=== PATIENT | male | born 1950 | race Caucasian/White ===

== ENCOUNTER 2017-03-26 14:36 | Inpatient (IN) | payer OTHER, MEDICAID ==
[~2017-03-26] VITALS: Ht 177.8 cm; Wt 85.7 kg
--- NOTE | 2017-03-26 14:52 | NUR ---
PATIENT WHEELCHAIR ASSISTED TO -A
--- NOTE | 2017-03-26 15:00 | NUR ---
66 YO MALE BIB EMS FROM HOME FOR FLU LIKE SYMPTOMS, HX OF ALZHEMIERS; PT VERBAL BUT DOES NOT ANSWER QUESTIONS APPRIOPRIATELY. PT DENIES ANY PAIN. PT IS AWAKE AND ALERT. RR ARE EVEN AND UNLABORED. SKIN IS WARM, PINK, AND DRY. NAD. VSS. ER MD AWARE OF PT STATUS. VSS. WILL CONTINUE TO MONITOR. AWAITING ER MD CONROY. Addendum: 03/26/17 at 1702 by [employer] Amendment undone in EDM - 03/26/17 at 1815 by [email or web address] BOTH FOOT REDNESS.
[2017-03-26 15:07] VITALS: BP 136/89
--- NOTE | 2017-03-26 17:02 | NUR ---
BLL SLIGHTLY SWELLING & REDNESS.
--- NOTE | 2017-03-26 17:18 | NUR ---
Patient being evaluated by DR WHITTAKER at bedside.
--- NOTE | 2017-03-26 17:35 | NUR ---
STRAIT CATH ,URINE 170 CC.SENT SPECIMEN TO LAB.
--- NOTE | 2017-03-26 17:58 | NUR ---
PATIENT UNABLE TO TOLERATE CT HEAD WON'T LIE STILL BROUGHT BACK TO ER VIA WHEELCHAIR.
[2017-03-26 18:19] LABS: APPEARANCE,URINE CLEAR (CLEAR); BILIRUBIN,URINE 1+ (NEGATIVE); BLOOD, URINE NEGATIVE (NEGATIVE); COLOR,URINE YELLOW (YELLOW); LEUKOCYTE ESTERASE ,URINE NEGATIVE (NEGATIVE); NITRITE, URINE NEGATIVE (NEGATIVE); UGLUCOSE NEGATIVE (NEGATIVE)
[2017-03-26 18:40] LABS: RBC,URINE NONE SEEN /HPF (0-5); WBC,URINE 0-5 (RARE) /HPF (0-5)
[2017-03-26] MEDS ORDERED: LORazepam 2 MG/ML VIAL IVP ONE ×2 (18:50→19:15)
[2017-03-26 19:05] LABS: BASOPHILS # (AUTO) 0.1 K/uL (0.00-0.22); BASOPHILS % (AUTO) 1.4 % (0.0-2.0); EOSINOPHILS # (AUTO) 0.1 K/uL (0-0.4); EOSINOPHILS % (AUTO) 3.3 % (0.0-4.0); HEMATOCRIT 39.4 % (36-52); HEMOGLOBIN 13.1 g/dL (12.0-18.0); LYMPHOCYTES # (AUTO) 0.9 K/uL (2.0-11.5); LYMPHOCYTES % (AUTO) 20.6 % (20.5-51.1); MEAN CORPUSCULAR HEMOGLOBIN 29 pg (27-31); MEAN CORPUSCULAR HGB CONC 33 g/dL (33-37); MEAN CORPUSCULAR VOLUME 86 fL (80-94); MONOCYTES # (AUTO) 0.6 K/uL (0.8-1.0); MONOCYTES % (AUTO) 12.8 % (1.7-9.3); NEUTROPHILS # (AUTO) 2.7 K/uL (1.8-7.7); NEUTROPHILS % (AUTO) 61.9 % (42.2-75.2); PLATELET COUNT (AUTO) 338 K/uL (140-450); RED BLOOD CELL COUNT(AUTO) 4.59 MIL/uL (4.20-6.10); RED CELL DISTRIBUTION WIDTH 12.9 % (11.6-13.7); WHITE BLOOD COUNT (AUTO) 4.4 K/uL (4.8-10.8)
[2017-03-26 19:14] LABS: ANION GAP 12.9 (8-16); CARBON DIOXIDE 26.4 mmol/L (21-32); CREATININE 1.1 mg/dL (0.7-1.3); POTASSIUM 3.3 mmol/L (3.5-5.1)
[2017-03-26 19:20] LABS: ALBUMIN 3.5 g/dL (3.4-5.0); TOTAL BILIRUBIN 0.5 mg/dL (0.0-1.0)
[2017-03-26] MEDS ORDERED: LORazepam 2 MG/ML VIAL IVP PRN ×2 (19:20→21:00)
[2017-03-26] MEDS ORDERED: ONDANSETRON 4 MG/2 ML VIAL IVP PRN (19:20)
[2017-03-26] MEDS ORDERED: HYDROcodone/APAP 5/325 MG 1 TAB TAB PO PRN (19:20)
--- NOTE | 2017-03-26 19:37 | NUR ---
Pt report given to DAVID RILEY. Transfer of care at this time.
[2017-03-26 20:00] VITALS: BP 159/75
--- NOTE | 2017-03-26 20:00 | NUR ---
RECEIVED FROM ER PER LASHONDA AWAKE AND WITH HX. DEMENTIA/ALZHEIMERS DSE.. COMBATIVE AND STRIKES OUT TO PERSONNEL TRYING TO HOLD INTO HIM SO HE WON'T FALL. WALKING AROUND THE HALLWAY. SECURITY CALLED TO HELP .PT. GAITS WEAK RT OLD AGE AND EDEMA TO LEGS BILATERAL NOTED. RASHES TO MULTIPLE PARTS OF THE BODY. DRY SCABS TO LOWER EXTREMITIES. IVF SITE TO RAC#20 . PT. REFUSING TO TALK AT T HIS TIME. ENCOURAGED TO GO BACK IN BED. REFUSING TO GO BACK IN BED AND REFUSING TO SIT IN CHAIR OR GOO BACK IN BED. CNAS , SECURITY AND NURSES JUST WATCHING OVER HIM .CHARGE NURSE CALLED ATTENDING MD FOR MEDICATION TO CALM PT.
--- NOTE | 2017-03-26 20:15 | NUR ---
Patient will be admitted to care of DR. MONTGOMERY . Admited to [facility] 110B. Will go to [id number]. Belongings list completed. Report to SANTY HERNANDEZ.
[2017-03-26] MEDS ORDERED: HALOPERIDOL IM 5 MG/ML VIAL IM PRN (21:00)
--- NOTE | 2017-03-26 22:08 | NUR ---
PT. MEDICATED WITH HALDOL 1 MG IM ORDERED BY ATTENDING MD . PT. AT THIS TIME SITTING DOWN AT THE EDGE OF BED. ADHESIVE SPRAYER ON STANDBY WATCH. NEEDS WILL BE ANTICIPATED AND WILL BE MET. DX. OF FAILURE TO THRIVE AND CHANGE OF LOC.
[2017-03-27 00:29] VITALS: BP 110/50
--- NOTE | 2017-03-27 00:31 | NUR ---
SLEEPING AT THIS TIME. 02 SAT ROOM AIR AT 100 %. BP WITH IN NORMAL LIMITS. BED ALARM ON. WILL BE FREQUENTLY MONITORED.
[2017-03-27 03:50] VITALS: BP 111/51
--- NOTE | 2017-03-27 03:52 | NUR ---
PT. SLEEPING WELL. WAKES UP WHEN TOUCHED. NONE VERBAL STILL. REFUSES TO BE TOUCHED. LAB. TECH IN FOR BLOOD SPECIMEN BUT PT. PUSHES HER AWAY WITH HIS HAND. PER LAB. TECH SHE WILL COME BACK LATER.
--- NOTE | 2017-03-27 06:20 | NUR ---
PT. WILL BE WHEELED OUT TO CT FOR CT HEAD ORDERED YESTERDAY BY . PT. ACCOMPANIED BY JOSÉ MIGUEL ROD TO HELP ZULLY / FOOD SERVICE SPECIALIST R/T PT. HAS HX. OF BEING COMBATIVE. PT. STILL SLEEPY BUT WAKES UP WHEN TOUCHED.
--- NOTE | 2017-03-27 06:39 | NUR ---
PT. WILL BE SENT BACK WITHOUT GOING THROUGH THE TEST R/T PER TECH PT. IS STARTING TO BE COMBATIVE.
--- NOTE | 2017-03-27 07:15 | NUR ---
RECEIVED PATIENT REPORT AT BEDSIDE. PATIENT STANDING AT HIS DOORWAY. NO S/S OF DISTRESS NOTED. PATIENT ON ROOM AIR. PATIENT CALM AT THE MOMENT. PATIENT NODS WHEN ASKED BUT DOES NOT RESPOND VERBALLY AT THIS TIME. SCRATCHES AND DISCOLORATION NOTED TO THE BLE. PATIENT ASSISTED TO SIT IN THE CHAIR. WILL CONTINUE TO MONITOR
[2017-03-27 07:27] LABS: BASOPHILS # (AUTO) 0.1 K/uL (0.00-0.22); BASOPHILS % (AUTO) 3.8 % (0.0-2.0); EOSINOPHILS # (AUTO) 0.3 K/uL (0-0.4); EOSINOPHILS % (AUTO) 6.5 % (0.0-4.0); HEMATOCRIT 37.7 % (36-52); HEMOGLOBIN 12.9 g/dL (12.0-18.0); LYMPHOCYTES # (AUTO) 0.9 K/uL (2.0-11.5); LYMPHOCYTES % (AUTO) 23.8 % (20.5-51.1); MEAN CORPUSCULAR HEMOGLOBIN 30 pg (27-31); MEAN CORPUSCULAR HGB CONC 34 g/dL (33-37); MEAN CORPUSCULAR VOLUME 86 fL (80-94); MONOCYTES # (AUTO) 0.6 K/uL (0.8-1.0); MONOCYTES % (AUTO) 15.5 % (1.7-9.3); NEUTROPHILS % (AUTO) 50.4 % (42.2-75.2); PLATELET COUNT (AUTO) 291 K/uL (140-450); RED BLOOD CELL COUNT(AUTO) 4.37 MIL/uL (4.20-6.10); RED CELL DISTRIBUTION WIDTH 13.4 % (11.6-13.7); WHITE BLOOD COUNT (AUTO) 3.9 K/uL (4.8-10.8)
[2017-03-27 08:00] VITALS: BP 143/81
[2017-03-27 08:47] LABS: ANION GAP 13.5 (8-16); CARBON DIOXIDE 25.9 mmol/L (21-32); POTASSIUM 3.4 mmol/L (3.5-5.1)
[2017-03-27] MEDS: HALOPERIDOL IM 5 MG/ML VIAL IM PRN (09:19)
--- NOTE | 2017-03-27 09:45 | NUR ---
PATIENT BROUGHT BACK FROM CT. TEST WAS NOT COMPLETED. PATIENT WAS RESTLESS
[2017-03-27] MEDS: ENOXAPARIN 30 MG/0.3 ML SYR SUBQ SCH (10:19)
--- NOTE | 2017-03-27 11:48 | NUR ---
CM NOTE PROVIDED VERBAL REPORT TO GUERLINE JOSE FOR [facility] ([phone] [id number])
--- NOTE | 2017-03-27 13:54 | NUR ---
I Attempted to contact Patient's son Ramírez Henry at to discuss Patient's status and gather information about patient's care and services provided and needed. The phone number provided was incorrect and phone number is a non working number.
--- NOTE | 2017-03-27 13:59 | NUR ---
After attempting to contact Patient's son Ramírez Henry at several times and finding out that the phone number provided is a non working number I placed a call to Sienna Barrios I talk to a dispatcher to request for a family welfare check and to inform them that they need to contact [facility] and have an updated contact number on record. I provided telle unit number to contact Charge Nurse wicho Mckenna to provide current contact number for son Ramírez Henry. Sienna Barrios took information, stated that welfare check will be done with in an hour and ended the call.
[2017-03-27] MEDS ORDERED: MAG SULF 2000 MG/WATER PREMIX 50 ML IV SCH (14:00)
[2017-03-27] MEDS ORDERED: POTASSIUM CHLORIDE 10 MEQ TABER PO SCH (14:00)
--- NOTE | 2017-03-27 14:52 | NUR ---
PATIENT HAS BEEN SCREENED AND CATEGORIZED LOW NUTRITION RISK. PATIENT WILL BE SEEN WITHIN 7 DAYS OF ADMISSION. 04/01/[address]
[2017-03-27 17:30] VITALS: BP 163/75
--- NOTE | 2017-03-27 17:47 | NUR ---
NOTIFIED DR VICTOR ABOUT PATIENT'S ELEVATED BP. ORDERS RECEIVED
[2017-03-27] MEDS: LABETALOL 100 MG TAB PO SCH ×2 (18:00→18:28)
--- NOTE | 2017-03-27 19:26 | NUR ---
PATIENT REPORT GIVEN AT BEDSIDE. PATIENT ENDORSED IN STABLE CONDITION
--- NOTE | 2017-03-27 19:29 | NUR ---
RECEIVED FROM A M RN IN GOOD MOOD. PT. WLKING AROUND THE ROOM AND DISCONNECTED NEWLY INSERTED IV BY AM RN. PT. CONFUSED . REFUSED TO LISTEN TO SIT OR GO BACK IN BED. PREFERS WALKING AROUND AND NOT SIT. PT.M WILL BE MONITORED CLOSELY AND NEEDS WILL BE ANTICIPATED AND WILL BE MET. AFEBRILE. DX. HX. SEVERE DEMENTIA AND ALZHEIMER'S DSE.
[2017-03-27] MEDS: ZOLPIDEM 10 MG TAB PO PRN (20:48)
--- NOTE | 2017-03-27 22:17 | NUR ---
PT. SLEEPING AT THIS TIME. WITH NEW ORDERS FOR SLEEPING PILL. MEDICATED ORDERED. NEW IVF LINE INSERTED TO LEFT HAND #22. MAGNESIUM IVP AT 25 ML/H CONTINUED ORDERED. MONITORED CLOSELY . PT. ATE A SANDWICH FOR SNACK AND 2 BOXES OF APPLE JUICE. NO RESTLESSNESS AT THIS TIME. NEEDS WILL BE ANTICIPATED AND WILL BE MET.
--- NOTE | 2017-03-28 | NUR ---
PT. WOKE UP AND PULLED OUT NEW IVF SITE AND AT THE SAME TIME STOOD UP AND URINATED ON THE FLOOR BESIDE HIS BED. WENT BACK TO BED AFTER. BED ALARM ON. PT. SLEEPING BACK.
--- NOTE | 2017-03-28 02:30 | NUR ---
PT. SLEEPING STILL. TURNS HIMSELF SIDE TO SIDE. KEPT WARM, CLEAN AND COMFORTABLE.
[2017-03-28 03:43] VITALS: BP 130/99
--- NOTE | 2017-03-28 04:57 | NUR ---
SLEEPING. NO RESTLESSNESS. BED ALARM ON. CLOSE MONITORING BY CNAS AND NURSES.
--- NOTE | 2017-03-28 06:25 | NUR ---
AWAKE AT THIS TIME. PROVIDED WITH SANDWICH. ATE IT ALL WITH APPLE JUICE. GOOD AFFECT.
--- NOTE | 2017-03-28 07:15 | NUR ---
ENDORSED TO THE NEXT RN FOR CONTINUITY OF CARE. PT. WENT BACK TO SLEEP AFTER EATING SNACK. NO RESTLESSNESS.
--- NOTE | 2017-03-28 07:15 | NUR ---
RECEIVED PATIENT REPORT AT BEDSIDE. PATIENT ASLEEP IN BED WITH NO ACUTE DISTRESS AT THIS TIME. SCRATCHES AND SWELLING TO BLE .NO IV LINE IN PLACE. BED LOWERED AND CALL LIGHT WITHIN REACH. WILL CONTINUE TO MONITOR.
[2017-03-28 08:00] VITALS: BP 146/62
[2017-03-28] MEDS: LABETALOL 100 MG TAB PO SCH ×2 (09:52→21:05)
[2017-03-28] MEDS: ENOXAPARIN 30 MG/0.3 ML SYR SUBQ SCH (09:53)
--- NOTE | 2017-03-28 10:26 | NUR ---
PATIENT AMBULATING AROUND THE UNIT WITH THE COMMERCIAL GREEN BUILDING DESIGNER. NO S/S OF DISTRESS NOTED.
--- NOTE | 2017-03-28 11:17 | NUR ---
Social Service Note: I called [place] [employer] and spoke with dispatcher Chiqui . Per Chiqui, an officer went to patient's home address (as listed on face sheet) [address] [place] [address] [address] [place] [address] and the officer requested person who opened the door to contact [facility]. She reported officer did not obtain the contact information of the person who opened the door.
--- NOTE | 2017-03-28 13:15 | NUR ---
PATIENT'S PRESENT IN THE ROOM. DR MONTGOMERY SPOKE WITH THE PATIENT'S AND INFORMED HER THAT PATIENT CAN BE DISCHARGED TO HOME IF PATIENT CAN NOT BE PLACED IN AN ALZHEIMER'S UNIT TODAY. PATIENT'S STATES THAT SHE WILL NOT BE TAKING THE PATIENT HOME AND INSISTED FOR THE PATIENT TO BE PLACED SOMEWHERE. HOME HEALTH AID TO SPEAK WITH THE PATIENT
--- NOTE | 2017-03-28 14:44 | NUR ---
P.T. NOTES P.T. EVAL DONE; NURSING TO AMBULATE PATIENT AD DARELL.
--- NOTE | 2017-03-28 16:00 | NUR ---
PATIENT'S , KAYLA BACON LEFT AND LEFT HER NUMBER [phone]
--- NOTE | 2017-03-28 17:29 | NUR ---
Social Service Note: I met with patient and patient's Kenia Dash at bedside. Patient non verbal during conversation. Per Kenia, she lives with patient and is no longer able to care for patient. She stated her physician told her that if she continues to take care of patient her health condition will decline. She demanded me to place patient in a senior living facility. I inquired if patient had [employer] insurance she stated he only has [employer] insurance. I explained to her the difference between skilled need snf placement and [facility] care snf placement. I informed that [employer] insurance covers for [facility] snf placement, not [employer]. Kenia became agitated and stated the [facility] or [facility] need to pay for patient's snf placement. She reported patient receives about $1,740 a month from Social Security and stated she uses that money to pay for their mobile home space. She told me that the mobile home is already paid, she only pays for mobile space. She reported she receives about $600 a month from Social Security for herself. She told me there is no one available to take care of patient nor anyone who can help patient pay for his placement. She demanded I call snfs and accused hospital staff of wanting her to be homeless. I explained to her that I was attempting to assist her with finding patient's snf/facility placement, however, it was important for her to understand that in order for patient to be placed at a snf as a [facility] patient, he needed to have [employer], otherwise, patient's Social Security income and/or any other family's members financial assistance needed to go towards his facility placement. She stated she is not going to take patient home upon discharge. During conversation, Kenia made inappropriate comments towards patient, patient's hospital gown went up when patient was attempting to get off bed and his private part was exposed. She told patient to cover himself because no one wanted to see that ugly thing and laughed at patient, she called patient krupa gayle. I called and made an APS report. APS report in patient's chart. Addendum: 03/28/17 at 1754 by Yoon Castillo SS I called and spoke with Process Assistant Mauricio #[id number] from [facility] Esdras Westbrook , APS report faxed to [facility] .
--- NOTE | 2017-03-28 19:20 | NUR ---
PATIENT REPORT GIVEN AT BEDSIDE. PATIENT ENDORSED IN STABLE CONDITION.
--- NOTE | 2017-03-28 19:21 | NUR ---
PATIENT REPORT RECEIVED AT BEDSIDE FROM MORNING NURSE. PATIENT IS SITTING IN CHAIR NEAR BED. NO SIGNS AND SYMPTOMS OF DISTRESS NOTED. FLACC 0. PATIENT IS APHASIC. NO IV SITE NOTED. SCABS/SCRATCHES NOTED ON BLE. PLAN OF CARE DISCUSSED WITH PATIENT. PATIENT COULD NOT COMPREHEND. SAFETY PRECAUTIONS IN PLACE. WILL CONTINUE TO MONITOR.
[2017-03-28 20:00] VITALS: BP 156/76
[2017-03-28] MEDS: ZOLPIDEM 10 MG TAB PO PRN (21:05)
--- NOTE | 2017-03-28 21:30 | NUR ---
MEDICATION EDUCATION GIVEN. MEDICATION GIVEN ORDERED. PATIENT TOLERATED WELL. ASSISTED PATIENT BACK TO BED. WILL CONTINUE TO MONITOR.
--- NOTE | 2017-03-29 | NUR ---
CHECKED ON PATIENT. PATIENT IS ASLEEP. NO SIGNS AND SYMPTOMS OF DISTRESS NOTED. BREATHING EVEN AND UNLABORED. WILL CONTINUE TO MONITOR.
[2017-03-29 04:00] VITALS: BP 149/70
--- NOTE | 2017-03-29 04:00 | NUR ---
CHECKED ON PATIENT. PATIENT IS ASLEEP. NO SIGNS AND SYMPTOMS OF DISTRESS NOTED. BREATHING EVEN AND UNLABORED. WILL CONTINUE TO MONITOR.
--- NOTE | 2017-03-29 07:15 | NUR ---
PATIENT REPORT GIVEN TO MORNING NURSE AT BEDSIDE. PATIENT IS IN STABLE CONDITION
[2017-03-29 08:00] VITALS: BP 162/88
[2017-03-29] MEDS: LABETALOL 100 MG TAB PO SCH ×2 (08:34→20:49)
[2017-03-29] MEDS: ENOXAPARIN 30 MG/0.3 ML SYR SUBQ SCH (08:35)
[2017-03-29 09:40] VITALS: BP 138/65
--- NOTE | 2017-03-29 09:40 | NUR ---
PATIENT AROUND AROUND HIS ROOM. BP RECHECKED 138 65. PATIENT CAN ABLE TO FOLLOW COMMAND. SAFETY MEASURES RENDERED TO PATIENT. WILL CONTINUE TO MONITOR.
--- NOTE | 2017-03-29 15:00 | NUR ---
SEEN PATIENT AMBULATING IN THE HALLWAY WITH DATABASE ARCHITECT. PATIENT ABLE TO COMMUNICATE BY NODDING HIS HEAD. ABLE TO FOLLOW COMMAND AND SAFETY MEASURES RENDERED. WILL CONTINUE TO MONITOR.
--- NOTE | 2017-03-29 15:45 | NUR ---
SEEN PATIENT SITTING IN THE SIDE OF THE BED. V/S TAKEN AND RECORDED. FALL PRECAUTION IMPLEMENTED. NO S/S OF DISTRESS.
--- NOTE | 2017-03-29 17:28 | NUR ---
SEEN PATIENT WALKING AROUND INSIDE HIS ROOM. FALL PRECAUTIONARY MEASURES IMPLEMENTED PER PROTOCOL.
--- NOTE | 2017-03-29 19:12 | NUR ---
PATIENT REPORT GIVEN AT BEDSIDE. PATIENT ENDORSED IN STABLE CONDITION.
--- NOTE | 2017-03-29 19:30 | NUR ---
RECEIVED REPORT FROM AM NURSE. PT RESTING IN BED, AWAKE, APHASIC AT THIS TIME, SMILES AND LAUGHS, ABLE TO FOLLOW SIMPLE COMMANDS. PT AMBULATORY. RESPIRATIONS EVEN AND UNLABORED. MULTIPLE DRY SCABS AND DISCOLORATIONS NOTED, INCLUDING BLE SCABS, REDNESS AND EDEMA. NO IV ACCESS. DISCUSSED AND REVIEWED PLAN OF CARE WITH PT, PT CONFUSED WITH HX ALZHEIMER'S, WILL CONTINUE WITH CONSTANT REINFORCEMENT. ALL NEEDS MET. BED ALARM AND SAFETY MEASURES ENSURED. CALL LIGHT WITHIN REACH.
[2017-03-29 20:00] VITALS: BP 160/78
--- NOTE | 2017-03-29 20:56 | NUR ---
PT SLEEPING COMFORTABLY, AROUSABLE TO TOUCH, ADMINISTERED DUE MED WITH EDUCATION, WILL CONTINUE WITH CONSTANT REINFORCEMENT, PT ABLE TO SWALLOW MEDICATIONS WELL. PT ABLE TO AMBULATE INDEPENDENTLY TO RESTROOM WITH STANDBY ASSIST. ALL NEEDS MET. BED ALARM AND SAFETY MEASURES ENSURED. CALL LIGHT WITHIN REACH.
--- NOTE | 2017-03-29 23:30 | NUR ---
PT SLEEPING COMFORTABLY, AROUSABLE TO TOUCH, PT HAS WET DIAPER, PT CLEANED, PT TOLERATED WELL. RESPIRATIONS EVEN AND UNLABORED. ALL NEEDS MET. SAFETY MEASURES ENSURED. CALL LIGHT WITHIN REACH.
[2017-03-30] VITALS: BP 155/75
--- NOTE | 2017-03-30 03:29 | NUR ---
PT SLEEPING COMFORTABLY, RESPIRATIONS EVEN AND UNLABORED. PT CLEAN AND DRY. ALL NEEDS MET. SAFETY MEASURES ENSURED. CALL LIGHT WITHIN REACH.
--- NOTE | 2017-03-30 07:15 | NUR ---
ENDORSED PLAN OF CARE TO AM NURSE. CONDITION STABLE.
--- NOTE | 2017-03-30 07:16 | NUR ---
RECEIVED REPORT FROM COMPLAINTS COORDINATOR NURSE MELODY AT BEDSIDE FOR CONTINUITY OF CARE. PT IS AWAKE BUT APHASIC. INTRODUCED SELF AND UPDATED BOARD. PT GOT UP OF BED AND TOOK GOWN OFF. ASSISTED PT TO PUT GOWN BACK ON AND BACK TO BED. NO IV ACCESS. SKIN IS WARM AND DRY. BLE SCABS AND SKIN DISCOLORATION NOTED. PT IS ON RA. O2 SAT 100%. NO SIGNS OF DISTRESS. BED IN LOW POSITION, WHEELS LOCKED, CALL LIGHT WITHIN REACH. YELLOW GOWN ON, ID BAND AND FALL RISK SIGN POSTED. WILL CONTINUE TO MONITOR.
[2017-03-30 08:00] VITALS: BP 150/78
[2017-03-30] MEDS: LABETALOL 100 MG TAB PO SCH ×2 (09:25→20:40)
[2017-03-30] MEDS: ENOXAPARIN 30 MG/0.3 ML SYR SUBQ SCH (09:31)
--- NOTE | 2017-03-30 09:33 | NUR ---
ADMINISTERED SCHEDULED MEDS. PT TOLERATED WELL. SITTING AT EDGE OF BED. PT IS CALM. NO SIGNS OF DISTRESS. WILL CONTINUE TO MONITOR.
--- NOTE | 2017-03-30 10:45 | NUR ---
PT WAS FOUND WANDERING OUT OF ROOM. ARTERIAL EMBALMER ASSISTED PT BACK TO ROOM. ASSISTED BACK TO BED. PT IS WATCHING TV NOW, QUIET, NO SIGNS OF DISTRESS. WILL CONTINUE CLOSE MONITORING.
--- NOTE | 2017-03-30 13:42 | NUR ---
CM NOTE INITIAL REVIEW FAXED TO [facility] / FAX# [phone], ATTN: CHRISTIANO #[phone]
[2017-03-30 16:00] VITALS: BP 167/79
--- NOTE | 2017-03-30 16:00 | NUR ---
PT GOT UP AND OUT OF BED AND WAS FOUND WANDERING OUT OF ROOM. ASSISTED PT TO GO BACK TO ROOM. SITTING IN CHAIR FOLDING [place]KINS. NO SIGNS OF DISTRESS. WILL CONTINUE TO MONITOR.
--- NOTE | 2017-03-30 18:21 | NUR ---
PT IS STANDING UP IN ROOM. FINISHED EATING DINNER TRAY. NO SIGNS OF DISTRESS. WILL CONTINUE TO MONITOR.
--- NOTE | 2017-03-30 19:21 | NUR ---
ENDORSED PT TO ZIG ZAG SPRING MACHINE OPERATOR NURSE DEBORAH AT BEDSIDE FOR CONTINUITY OF CARE. PT IS SITTING IN CHAIR. AWAKE AND IN STABLE CONDITION.
--- NOTE | 2017-03-30 19:35 | NUR ---
RECEIVED REPORT FROM DAY SHIFT RN AT THE BEDSIDE, PT IS STANDING UP IN ROOM. NO SIGNS OF DISTRESS, RESPIRATION EVEN AND UNLABORED. TRIED TO ASSIST THE PATIENT BACK TO HIS BED, BUT PATIENT REFUSED TO MOVE. NO IV ACCESS NOTED. PATIENT'S ROOM IS CLOSE TO NURSE'S STATION, SAFETY MEASURE ENSURED, WILL CONTINUE TO MONITOR.
--- NOTE | 2017-03-30 20:47 | NUR ---
DUE MEDICATION GIVEN, PATIENT TOLERATED WELL. NO S/S OF DISTRESS NOTED, RESPIRATION EVEN AND UNLABORED, CALL LIGHT WITHIN REACH, SAFETY MEASURE ENSURED, WILL CONTINUE TO MONITOR.
[2017-03-30] MEDS: ZOLPIDEM 10 MG TAB PO PRN (22:51)
--- NOTE | 2017-03-30 22:58 | NUR ---
PATIENT PUT TRASH BIN ON THE BED NEXT TO HIM, AND WANDERING AROUND IN THE ROOM. TRIED TO ASSIST PATIENT BACK TO HIS BED, BUT PATIENT REFUSED, JUST STANDING IN THE ROOM AND SMILE. I AM CHARTING OUTSIDE THE ROOM AND CONTINUE TO MONITOR PATIENT.
--- NOTE | 2017-03-30 23:52 | NUR ---
PATIENT IS SLEEPING, NO S/S OF DISTRESS NOTED, RESPIRATION EVEN AND UNLABORED, CALL LIGHT WITHIN REACH, SAFETY MEASURE ENSURED, WILL CONTINUE TO MONITOR.
[2017-03-31] VITALS: BP 134/70
--- NOTE | 2017-03-31 01:53 | NUR ---
PATIENT WAS TRYING TO GET UP, THEN HE URINATED ON HIMSELF, CLEANED THE PATIENT AND CHANGED THE GOWN, PATIENT IS SLEEPING IN BED NOW, RESPIRATION EVEN AND UNLABORED, NO S/S OF DISTRESS NOTED, WILL CONTINUE TO MONITOR.
--- NOTE | 2017-03-31 03:20 | NUR ---
PATIENT WAS STANDING AT THE DOOR, URINATING IN THE HALLWAY. AFTER PATIENT WAS DONE, ASSISTED PATIENT BACK TO HIS BED. NO INJURY AT THIS MOMENT. SAFETY MEASURE ENSURED, WILL CONTINUE TO MONITOR.
--- NOTE | 2017-03-31 05:31 | NUR ---
NO CHANGE IN CONDITION, PATIENT IS SLEEPING, NO S/S OF DISTRESS NOTED, RESPIRATION EVEN AND UNLABORED, CALL LIGHT WITHIN REACH, SAFETY MEASURE ENSURED, WILL CONTINUE TO MONITOR.
--- NOTE | 2017-03-31 07:28 | NUR ---
RECEIVED PATIENT REPORT FROM NIGHTSHIFT NURSE AT BEDSIDE. PATIENT IS ASLEEP AT THIS TIME. PATIENT'S RESPIRATIONS ARE EVEN AND UNLABORED. NO SIGNS OF GRIMACING OR RESTLESSNESS. PUT BED IN LOWEST POSITION AND UPDATED THE BOARD. WILL CONTINUE TO MONITOR PATIENT AT THIS TIME.
--- NOTE | 2017-03-31 07:28 | NUR ---
ENDORSED PLAN OF CARE TO DAY SHIFT RN, PATIENT IS IN STABLE CONDITION, NO S/S OF DISTRESS NOTED.
[2017-03-31 08:00] VITALS: BP 134/78
[2017-03-31] MEDS: LABETALOL 100 MG TAB PO SCH ×2 (09:39→20:33)
[2017-03-31] MEDS: ENOXAPARIN 30 MG/0.3 ML SYR SUBQ SCH (09:43)
--- NOTE | 2017-03-31 11:00 | NUR ---
PATIENT IS SITTING UP RIGHT IN BED. PATIENT SHOWS NO SIGNS OF PAIN OR RESPIRATORY DISTRESS OR RESPIRATORY DEPRESSION. WILL CONTINUE TO MONITOR PATIENT.
--- NOTE | 2017-03-31 12:30 | NUR ---
PATIENT RESTING IN BED. NO SIGNS OF DISCOMFORT. WILL CONTINUE TO MONITOR PATIENT.
--- NOTE | 2017-03-31 13:36 | NUR ---
I attempted to contact Patient's Deedee Dash at the number she provided on 03/28/17. to discuss status and gather patient's information. Number she provided still incorrect and is not a working number.
--- NOTE | 2017-03-31 14:36 | NUR ---
Clinical review faxed to [facility] [phone]
--- NOTE | 2017-03-31 14:55 | NUR ---
PATIENT RESTING IN BED. WILL CONTINUE TO MONITOR PATIENT.
[2017-03-31 16:00] VITALS: BP 167/79
--- NOTE | 2017-03-31 17:50 | NUR ---
PATIENT EATING DINNER IN BED. NO SIGNS OF RESPIRATORY DISTRESS OR RESPIRATORY DEPRESSION. WILL CONTINUE TO MONITOR PATIENT.
--- NOTE | 2017-03-31 19:15 | NUR ---
UPDATED NIGHTSHIFT NURSE ON PATIENT'S STATUS. PATIENT IS IN STABLE CONDITION.
--- NOTE | 2017-03-31 19:20 | NUR ---
RECEIVED REPORT FROM DAY SHIFT RN, PATIENT STANDING UP IN THE ROOM, NO S/S OF DISTRESS NOTED, RESPIRATION EVEN AND UNLABORED, PIANO TECHNICIAN AT THE BEDSIDE TO ENSURE SAFETY. NO IV ACCESS. PLAN OF CARE DISCUSSED, PATIENT UNABLE TO COMPREHEND, SAFETY MEASURE ENSURED, WILL CONTINUE TO MONITOR.
--- NOTE | 2017-03-31 20:40 | NUR ---
DUE MEDICATION GIVEN, PATIENT TOLERATED WELL. NO S/S OF DISTRESS NOTED, RESPIRATION EVEN AND UNLABORED, PATIENT STILL STANDING UP IN THE ROOM, EGG PACKER AT THE BEDSIDE. SAFETY MEASURE ENSURED, WILL CONTINUE TO MONITOR.
[2017-03-31] MEDS: ZOLPIDEM 10 MG TAB PO PRN (22:01)
--- NOTE | 2017-03-31 22:50 | NUR ---
ASSISTED PATIENT BACK TO HIS BED, PATIENT RESTING IN BED, NO S/S OF DISTRESS NOTED, RESPIRATION EVEN AND UNLABORED, BED ALARM ON, SAFETY MEASURE ENSURED, WILL CONTINUE TO MONITOR.
[2017-04-01] VITALS: BP 132/82
--- NOTE | 2017-04-01 01:08 | NUR ---
PATIENT WAS SLEEPING, EASY TO AROUSE, NO S/S OF DISTRESS NOTED, RESPIRATION EVEN AND UNLABORED, VITAL SIGNS STABLE, BED ALARM ON, SAFETY MEASURE ENSURED, WILL CONTINUE TO MONITOR.
--- NOTE | 2017-04-01 03:05 | NUR ---
NO CHANGE IN CONDITION, PATIENT IS SLEEPING, NO S/S OF DISTRESS NOTED, RESPIRATION EVEN AND UNLABORED, BED ALARM ON, SAFETY MEASURE ENSURED, WILL CONTINUE TO MONITOR.
--- NOTE | 2017-04-01 05:43 | NUR ---
PATIENT AWAKE, ASKED IF HE WANTED TO USE BATHROOM, PATIENT NODDED, TOOK HIM TO THE RESTROOM, PATIENT VOIDED IN THE TOILET. PATIENT IS BACK TO HIS BED, NO S/S OF DISTRESS NOTED, CALL LIGHT WITHIN REACH, SAFETY MEASURE ENSURED, WILL CONTINUE TO MONITOR.
--- NOTE | 2017-04-01 07:30 | NUR ---
ENDORSEMENT RECEIVED FROM DEPUTY SHERIFF CUSTODY NURSE. PATIENT IS AWAKE, ALERT, SITTING AT THE SIDE OF THE BED. RESPIRATION EVEN, UNLABOR ON ROOM AIR. SKIN DRY AND WARM. NO IV. DENIED PAIN AT THIS TIME. PLAN OF CARE WAS DISCUSSED WITH PATIENT. BED AT LOW POSITION, SIDE RAILS UP, BED ALARM ACTIVE.
--- NOTE | 2017-04-01 07:38 | NUR ---
ENDORSED PLAN OF CARE TO DAY SHIFT RN, PATIENT IS IN STABLE CONDITION.
[2017-04-01 08:00] VITALS: BP 116/67
[2017-04-01] MEDS: LABETALOL 100 MG TAB PO SCH ×2 (08:56→22:12)
[2017-04-01] MEDS: ENOXAPARIN 30 MG/0.3 ML SYR SUBQ SCH (09:00)
--- NOTE | 2017-04-01 09:02 | NUR ---
LOVENOX WAS HELD DUE TO MISSING CURRENT PLATELET LEVEL AND COAGULATION VALUES, WILL FOLLOW UP WITH .
--- NOTE | 2017-04-01 10:31 | NUR ---
I call back Mrs. Mirlande Gunter Who left a voicemail MSG inquiring information about patient and Mrs. Dash. Mrs. Gunter stated in her voicemail that she is a friend and (Stain Applicator) helping Mrs. Dash. Mrs. Gunter Did not respond to my call and I left her my contact number and a request for a call back today 04/01/17.
--- NOTE | 2017-04-01 10:38 | NUR ---
I attempted to contact Patient's Deedee Dash again to the same number she has provided on 03/28/17. to discuss status, Plan for discharge, involvement and consent forms to speak to Mrs. Mirlande Gunter in order to discuss patient's information and to gather patient's information and plan for placement. The number still incorrect (reports been not a working number).
--- NOTE | 2017-04-01 12:30 | NUR ---
I was informed about Patient's Deedee Dash visiting with patient by Charge Nurse Clarisa. I met with Mrs. Dash to discuss patient's status, and for her to provided a correct contact number that is functional and where she can be reach. Per Mrs. Dash her correct contact number is , I verify contact number couple times and Hanna Walker stated that is the correct number and should be working now. I discuss with Mrs. Dash about cordelia Gunter calling and inquiring information, she explained to her that in order for [facility] staff to be able to communicate any information she will need to sign consent forms for information disclosure. Per Mrs. Ekta Gunter is a neighbor; that she knows for about 19 years that has work at the [employer] office and that is helping her getting information. I repeated to Mrs. Dash the importance of signing forms required to disclose any of her or patient's information. She agreed and stated she will once she talks to Mrs. Gunter today. Patient's Mrs. Dash stated that patient needs to be placed in to a facility because she will not be taking patient home and refused to talk with me about discharge plan and other services. I educated Mrs. Dash about the services patient is able to received and the services that are not cover by insurance. Re- visited information provided to her previously by home mission worker on the weekend and provided with same information. I discuss and explained differences of needed services from a skill Nursing Facilities (SNF). I explained to her Skilled Nursing care and Skilled and that Patient's insurance do not cover for Skilled Nursing Care. She became more upset but understood that she had to come up with a plan or applied for [facility] to see if she can be assisted with services. Mrs. Dash was frustrated and stated " I guess we are going to have to be homeless; or the state will have to do something " She became more cooperative when I explained that she will be called by our Insurance Verifiers Yvette or her supervisor welding equipment repairer Chevy to work with her on getting information and documents that she needs to provide in order to explore other assistance, or arrangements. Mrs. Dash agreed and reported that she will be pending for the call and cooperative bringing documents needed. Mrs. Dash verbalized understanding on the importance of this matter and had no more questions at the time. Amusement Ride Inspector and Hand Turner will follow up as needed.
--- NOTE | 2017-04-01 12:44 | NUR ---
PATIENT AWAKE, ALERT, EATING LUNCH. RESPIRATION EVEN, UNLABOR ON ROOM AIR. NO DISTRESS NOTED AT THIS TIME. PATIENT'S IS AT BEDSIDE. CALL LIGHT WITHIN REACH
--- NOTE | 2017-04-01 13:41 | NUR ---
04/01/2017 RD INITIAL ASSESSMENT COMPLETED PLEASE REFER TO NUTRITION ASSESSMENT UNDER CARE ACTIVITY FOR ESTIMATED NUTRITIONAL NEEDS. CONTINUE CURRENT DIET ORDERED RD TO FOLLOW-UP IN 5-7 DAYS PATIENT IS LOW RISK. LINNETTE GRIMES RD
--- NOTE | 2017-04-01 14:00 | NUR ---
PATIENT FOUND AMBULATING AROUND THE HALLWAY, STEADY GAIT. PATIENT WAS REDIRECTED BACK TO THE ROOM.
--- NOTE | 2017-04-01 14:35 | NUR ---
CALLED CHRISTIANO FROM [facility]. NO REVIEW NEEDED. PATIENT HAS BEEN DENIED.
--- NOTE | 2017-04-01 15:00 | NUR ---
PATIENT IS SLEEPING COMFORTABLY. RESPIRATION EVEN, UNLABOR ON ROOM AIR. NO DISTRESS NOTED AT THIS TIME. CALL LIGHT WITHIN REACH
--- NOTE | 2017-04-01 15:57 | NUR ---
PATIENT AWAKE, SITTING ON THE BED. RESPIRATION EVEN, UNLABOR. NO DISTRESS NOTED AT THIS TIME. VS WAS TAKEN. CALL LIGHT WITHIN REACH
[2017-04-01 16:00] VITALS: BP 154/66
--- NOTE | 2017-04-01 18:10 | NUR ---
PATIENT IS STANDING IN THE HALLWAY UNDER STAFF SUPERVISION. PATIENT'S RESPIRATION EVEN, UNLABOR ON ROOM AIR. NO DISTRESS NOTED AT THIS TIME.
--- NOTE | 2017-04-01 19:17 | NUR ---
ENDORSEMENT GIVEN TO THE DEVELOPMENT MANAGER NURSE. PATIENT IS STABLE AT THIS TIME
--- NOTE | 2017-04-01 19:18 | NUR ---
RECD. SITTING ON BED, AWAKE, ALERT, WANTS TO WANDER AROUND. RESPIRATION EVEN AND UNLABORED, NO IV LINE. SAFETY MEASURES ENFORCED. REORIENTED TO HOSPITAL SETTING, DOES NOT MIND WHAT IS BEING SAID TO HIM. NO APPEARANCE OF PAIN NOTED 0/10. WILL CONTINUE TO MONITOR.
--- NOTE | 2017-04-01 21:00 | NUR ---
Patient's Plan of Care was discussed and reviewed with NATURAL GAS FIELD PROCESSING SUPERVISOR: LORENA BARBER
--- NOTE | 2017-04-01 22:00 | NUR ---
OCCASIONALLY TRIES TO WALK OUT OF HIS ROOM. ASSISTED BACK TO BED.
[2017-04-02] VITALS: BP 130/51
[2017-04-02] MEDS: ZOLPIDEM 10 MG TAB PO PRN ×2 (00:50→23:33)
--- NOTE | 2017-04-02 00:55 | NUR ---
STILL AWAKE, WALKING INSIDE ROOM. MEDICATED WITH AMBIEN 10 MG. PO.
--- NOTE | 2017-04-02 01:55 | NUR ---
SLEEPING COMFORTABLY IN BED.
--- NOTE | 2017-04-02 06:53 | NUR ---
ABLE TO SLEPT WELL. CONDITION REMAIN STABLE. WILL ENDORSE TO AM NURSE FOR CONTINUITY OF CARE.
--- NOTE | 2017-04-02 07:30 | NUR ---
PATIENT AWAKE, ALERT. RESPIRATION EVEN, UNLABOR ON ROOM AIR. SKIN DRY AND WARM. FLACC 0. NO DISTRESS NOTED AT THIS TIME. PLAN OF CARE WAS DISCUSSED WITH PATIENT. BED AT LOW POSITION, SIDE RAILS UP. CALL LIGHT WITHIN REACH. BED ALARM ACTIVE
[2017-04-02 08:00] VITALS: BP 139/67
[2017-04-02] MEDS: ENOXAPARIN 30 MG/0.3 ML SYR SUBQ SCH (09:00)
[2017-04-02] MEDS: LABETALOL 100 MG TAB PO SCH ×2 (09:16→20:45)
--- NOTE | 2017-04-02 11:15 | NUR ---
PATIENT AMBULATES AROUND THE HALLWAY UNDER SUPERVISION OF STAFF, STEADY GAIT. NO DISTRESS NOTED
--- NOTE | 2017-04-02 13:16 | NUR ---
PATIENT IS AWAKE, ALERT, SITTING ON THE BED. RESPIRATION EVEN, UNLABOR ON ROOM AIR. NO DISTRESS NOTED AT THIS TIME. CALL LIGHT WITHIN REACH
--- NOTE | 2017-04-02 14:14 | NUR ---
CM NOTE NO REVIEW FAXED PER INSURANCE'S REQUEST.
[2017-04-02 16:00] VITALS: BP 142/70
--- NOTE | 2017-04-02 17:18 | NUR ---
PATIENT AWAKE, ALERT, STANDING AT NURSING STATION. RESPIRATION EVEN, UNLABOR ON ROOM AIR. NO DISTRESS NOTED AT THIS TIME.
--- NOTE | 2017-04-02 19:23 | NUR ---
ENDORSEMENT GIVEN TO PATIENT CARE SECRETARY NURSE. PATIENT IS STABLE AT THIS TIME
--- NOTE | 2017-04-02 19:24 | NUR ---
RECEIVED BEDSIDE REPORT FROM DAY SHIFT NURSE, PT STABLE, NO DISTRESS NOTE, PT AMBULATING AROUND UNIT WITH DIRECTOR SOCIAL SERVICE, NO SOB, DENIES ANY PAIN, INITIAL ASSESSMENT DONE, ALL SAFETY PRECAUTION MET, WILL CONTINUE TO MONITOR.
--- NOTE | 2017-04-02 20:45 | NUR ---
DUE MEDICATION GIVEN, PT TOLERATED WELL, NO DISTRESS NOTED, PT AMBULATING INSIDE BEDROOM, WILL CONTINUE TO MONITOR.
--- NOTE | 2017-04-02 23:36 | NUR ---
PT URINATED ON THE FLOOR AND WENT BACK TO BED AND DID A BM, PT STABLE, NO DISTRESS NOTED, SLEEPING MEDICATION GIVEN, PT HAS TROUBLE SLEEPING, KEEPS WALKING AROUND ROOM. WILL CONTINUE TO MONITOR.
[2017-04-03] VITALS: BP 123/78
--- NOTE | 2017-04-03 01:09 | NUR ---
PT SLEEPING, CALM ON BED, NO DISTRESS NOTED, CALL LIGHT WITHIN REACH, WILL CONTINUE TO MONITOR.
--- NOTE | 2017-04-03 02:52 | NUR ---
CHECKED ON PT, PT SLEEPING CALMLY ON BED, NO DISTRESS NOTED, CALL LIGHT WITHIN REACH, WILL CONTINUE TO MONITOR.
--- NOTE | 2017-04-03 03:03 | NUR ---
PT ABRUPTLY GOT UP OUT OF BED AND URINATED ON THE FLOOR THEN WENT BACK TO BED, NO DISTRESS NOTED, CALL LIGHT WITHIN REACH, WILL CONTINUE TO MONITOR.
--- NOTE | 2017-04-03 07:20 | NUR ---
ENDORSED PLAN OF CARE TO DAY SHIFT NURSE KY RN, PT STABLE, NO DISTRESS NOTED, CALL LIGHT WITHIN REACH.
--- NOTE | 2017-04-03 07:21 | NUR ---
RECEIVED BEDSIDE REPORT FROM PITCH FILLER NURSE, PT STABLE, NO DISTRESS NOTED, PT AMBULATING AROUND HIS ROOM, NO SOB, BREATHING EVEN AND UNLABORED. DENIES ANY PAIN, SAFETY PRECAUTION IN PLACE, CALL LIGHT WITHIN REACH. WILL CONTINUE TO MONITOR PATIENT.
[2017-04-03 08:00] VITALS: BP_SYST 135; BP_SYST 140; BP_DIAS 80; BP_DIAS 90
[2017-04-03] MEDS: LABETALOL 100 MG TAB PO SCH ×2 (08:35→21:14)
--- NOTE | 2017-04-03 08:37 | NUR ---
ADMINISTERED MORNING MEDICATION, PATIENT TOLERATED IT WELL. NO SIGNS OF SOB OR DISTRESS NOTED. PATIENT DENIES PAIN. SAFETY PRECAUTION IN PLACE, CALL LIGHT WITHIN REACH, WILL CONTINUE TO MONITOR PATIENT.
--- NOTE | 2017-04-03 10:15 | NUR ---
PATIENT AMBULATING AROUND ROOM, NO SIGNS OF DISTRESS OR SOB NOTED. BREATHING EVEN AND UNLABORED. SAFETY PRECAUTION IN PLACE, CALL LIGHT WITHIN REACH. WILL CONTINUE TO MONITOR PATIENT.
--- NOTE | 2017-04-03 13:10 | NUR ---
PATIENT RESTING IN BED, NO SIGNS OF DISTRESS OR SOB NOTED. FLACC-0. SAFETY PRECAUTION IN PLACE, CALL LIGHT WITHIN REACH, WILL CONTINUE TO MONITOR PATIENT.
--- NOTE | 2017-04-03 13:20 | NUR ---
PATIENT URINATED IN THE SINK. NO SIGNS OF DISTRESS OR SOB NOTED. FLACC-0. SAFETY PRECAUTION IN PLACE, CALL LIGHT WITHIN REACH, WILL CONTINUE TO MONITOR PATIENT.
[2017-04-03 16:00] VITALS: BP 121/73
--- NOTE | 2017-04-03 19:15 | NUR ---
PATIENT REPORT GIVEN TO SOFTWARE EDUCATOR NURSE AT BEDSIDE FOR CONTINUITY OF CARE. PATIENT IN STABLE CONDITION.
--- NOTE | 2017-04-03 19:16 | NUR ---
RECEIVED BEDSIDE REPORT FROM DAY SHIFT NURSE, PT STABLE, NO DISTRESS NOTED, CALL LIGHT WITHIN REACH, WILL CONTINUE TO MONITOR.
--- NOTE | 2017-04-03 21:14 | NUR ---
DUE MEDICATION GIVEN PT STABLE, NO DISTRESS NOTED CALL LIGHT WITHIN REACH, WILL CONTINUE TO MONITOR.
--- NOTE | 2017-04-03 23:00 | NUR ---
CHECKED ON PT, PT STABLE, PT AMBULATED TO RESTROOM AND BACK TO BED, NO DISTRESS NOTED, CALL LIGHT WITHIN REACH, WILL CONTINUE TO MONITOR.
[2017-04-04] VITALS: BP 130/83
--- NOTE | 2017-04-04 02:10 | NUR ---
PT AMBULATED TO RESTROOM AND BACK TO BED, PT STABLE, NO DISTRESS NOTED, CALL LIGHT WITHIN REACH, WILL CONTINUE TO MONITOR.
--- NOTE | 2017-04-04 04:00 | NUR ---
CHECKED ON PT, PT SLEEPING CALMLY ON BED, NO DISTRESS NOTED, CALL LIGHT WITHIN REACH, WILL CONTINUE TO MONITOR.
--- NOTE | 2017-04-04 07:26 | NUR ---
ASSUMED CONTINUITY OF CARE. NO SIGNS AND SYMPTOMS OF ACUTE DISTRESS NOTED. INITIAL ASSESSMENT DONE. RE-ORIENTED TO EVENTS AND SURROUNDINGS. REFUSED IV INSERTION. KEEP COMFORTABLE ON BED. FALL PRECAUTION APPLIED CALL LIGHT WITHIN REACH.
--- NOTE | 2017-04-04 07:26 | NUR ---
ENDORSED PLAN OF CARE TO DAY SHIFT NURSE AJ STONER, PT STABLE, NO DISTRESS NOTED, CALL LIGHT WITHIN REACH.
--- NOTE | 2017-04-04 07:30 | NUR ---
Patient's Plan of Care was discussed and reviewed with HIDE OR SKIN BUFFER: LIANE.
[2017-04-04 08:00] VITALS: BP 145/80
[2017-04-04] MEDS: LABETALOL 100 MG TAB PO SCH ×2 (09:18→20:32)
--- NOTE | 2017-04-04 10:00 | NUR ---
NON-COMPLIANT TO SAFETY. REFUSED ASSISTANCE. AMBULATES ON HALLWAY WITHOUT ASSISTANCE. TOLERATED WELL. WILL MONITOR.
[2017-04-04 12:00] VITALS: BP 132/65
--- NOTE | 2017-04-04 19:06 | NUR ---
BEDSIDE REPORT GIVEN TO DAYAN CASTRO. IN STABLE CONDITION. CLOSELY WATCHED BY MARCEL JAMA FOR SAFETY PRECAUTION.
--- NOTE | 2017-04-04 19:06 | NUR ---
PATIENT IS CURRENTLY AWAKE IN HIS ROOM TALKS WHEN HE WANTS MOST OF THE TIME HIS QUIET.JOSÉ MIGUEL ROD WITH THE PATIENT LOOKING AFTER HIM. PATIENT WAS GIVEN A SNACK WELL.
[2017-04-04 20:00] VITALS: BP 174/93
--- NOTE | 2017-04-04 20:00 | NUR ---
PATIENT WALKING AROUND THE NURSES STATION WITH JOSÉ MIGUEL ROD. PATIENT GAIT IS STEADY AND CONTINUES TO BE SEVERELY CONFUSED BUT HIS NOT AGGRESSIVE.WILL CONTINUE TO MONITOR.VITALS SIGNS TAKEN AND IS CURRENTLY STABLE.
--- NOTE | 2017-04-04 20:02 | NUR ---
Patient's Plan of Care was discussed and reviewed with PRESSURE TANK OPERATOR: MARILUZ
[2017-04-04] MEDS: HALOPERIDOL IM 5 MG/ML VIAL IM PRN (20:28)
--- NOTE | 2017-04-04 22:00 | NUR ---
PATIENT ASSISTED TO BED BY JOSÉ MIGUEL ROD AND PATIENT GOES TO BED WILL CONTINUE TO MONITOR.
--- NOTE | 2017-04-05 00:12 | NUR ---
PATIENT SLEEPING ON AN OFF AT THIS TIME CONTINUES TO BE MONITORED.
--- NOTE | 2017-04-05 00:55 | NUR ---
PATIENT IS CURRENTLY SLEEPING IN BED.
[2017-04-05] MEDS: HALOPERIDOL IM 5 MG/ML VIAL IM PRN ×2 (01:45→22:27)
--- NOTE | 2017-04-05 01:46 | NUR ---
PATIENT AGITATED ATTEMPTING TO GET OUT OF HIS ROOM AND WANDER IN THE HALLWAY. SEVERAL ATTEMPTS TO KEEP THE PATIENT IN HIS ROOM BUT PATIENT KEEPS INSISTING TO GET OUT AND WALK. PATIENT ASSISTED BACK TO BED KEEPS REFUSING TO STAY THERE.
--- NOTE | 2017-04-05 02:14 | NUR ---
PATIENT SLEEPING COMFORTABLY IN BED.WILL CONTINUE TO MONITOR.
--- NOTE | 2017-04-05 02:25 | NUR ---
PATIENT SLEEPING IN BED BED ALARM ON PATIENT CONTINUES TO HAVE HIS YELLOW SLIPPERS ON AND FALL PRECAUTIONS IMPLEMENTED.
--- NOTE | 2017-04-05 04:27 | NUR ---
PATIENT SLEEPING.BED ALARM ON.
--- NOTE | 2017-04-05 06:49 | NUR ---
PATIENT AWAKE AND CURRENTLY AMBULATING IN ROOM.
--- NOTE | 2017-04-05 07:40 | NUR ---
PATIENT ENDORSED TO DAVID FLOREZ SHE WILL RESUME CARE OF THE PATIENT.
--- NOTE | 2017-04-05 07:41 | NUR ---
RECEIVED REPORT FROM THE DENTAL CERAMIST HELPER NURSE IN THE ROOM FOR CONTINUITY OF CARE. PT IS AWAKE AND AMBULATING IN THE ROOM. PT GAIT IS STEADY. INTRODUCED MYSELF AND UPDATED THE BOARD. V/S DONE. WITHIN NORMAL LIMITS. PT IS CONFUSED, APHASIC, ROAMS IN ROOM AND UP AND DOWN THE HALLWAYS. NO IV SITE. WILL CONTINUE TO MONITOR PT.
[2017-04-05 08:00] VITALS: BP 117/67
--- NOTE | 2017-04-05 08:48 | NUR ---
PT BP 117/67. HELD LABETALOL. WILL CHECK BP AT NOON, IF HIGH, WILL ADMINISTER, IF NOT, WILL NOT GIVE. PT IS IN STABLE CONDITION.
[2017-04-05] MEDS: LABETALOL 100 MG TAB PO SCH ×2 (08:50→20:38)
--- NOTE | 2017-04-05 10:32 | NUR ---
PT SLEEPING IN BED. NO SIGNS OF DISTRESS. WILL CONTINUE TO MONITOR PT.
--- NOTE | 2017-04-05 12:00 | NUR ---
SITTING ON SIDE OF BED, EATING LUNCH. WILL CONTINUE TO MONITOR PT.
--- NOTE | 2017-04-05 13:00 | NUR ---
PT TAKING A NAP IN BED. NO SIGNS OF DISTRESS. WILL CONTINUE TO MONITOR PT.
--- NOTE | 2017-04-05 15:22 | NUR ---
PT AMBULATING AROUND ROOM AND SITTING ON CHAIR. NO SIGN OF DISTRESS.
[2017-04-05 16:00] VITALS: BP 159/79
--- NOTE | 2017-04-05 18:36 | NUR ---
ATE 100% OF DINNER. AMBULATING WITH STRUCTURAL DESIGN ENGINEER. WILL CONTINUE TO MONITOR PT.
--- NOTE | 2017-04-05 19:25 | NUR ---
ENDORSED PT TO THE CUP TRIMMING MACHINE OPERATOR NURSE AT BEDSIDE FOR CONTINUITY OF CARE. PT IS IN STABLE CONDITION.
--- NOTE | 2017-04-05 19:26 | NUR ---
RECEIVED REPORT FROM DAY SHIFT DAVID YAO, PT IS A/OX1 TO PERSON, ON ROOM AIR. PT DOES NOT HAVE IV ACCESS. PT AMBULATES, WEAK GAIT. PT HAS SCABS AROUND NECK. UPDATED BOARD. VITAL SIGNS WITHIN NORMAL LIMITS. PT IN STABLE CONDITION, NO SIGNS OF DISTRESS NOTED. BED IN LOWEST POSITION, CALL LIGHT WITHIN REACH. WILL CONTINUE TO MONITOR.
[2017-04-05] MEDS: HYDROCORTISONE 1% CRM 30 GM TUBE TP SCH (20:38)
--- NOTE | 2017-04-05 20:40 | NUR ---
ADMINISTERED SCHEDULED MEDICATIONS, PT TOLERATED WELL. PT IN STABLE CONDITION, NO SIGNS OF DISTRESS NOTED. BED IN LOWEST POSITION, CALL LIGHT WITHIN REACH. WILL CONTINUE TO MONITOR.
--- NOTE | 2017-04-05 22:33 | NUR ---
PT WAS AGITATED, ADMINISTERED PRN HALDOL PER ORDER. PT TOLERATED WELL.
[2017-04-06] VITALS: BP 158/70
--- NOTE | 2017-04-06 | NUR ---
PT IN STABLE CONDITION, NO SIGNS OF DISTRESS NOTED. BED IN LOWEST POSITION, CALL LIGHT WITHIN REACH. WILL CONTINUE TO MONITOR.
[2017-04-06] MEDS: HALOPERIDOL IM 5 MG/ML VIAL IM PRN ×2 (02:36→21:09)
--- NOTE | 2017-04-06 02:37 | NUR ---
PT WAS AGITATED, ADMINISTERED PRN HALDOL PER ORDER. PT TOLERATED WELL.
--- NOTE | 2017-04-06 07:26 | NUR ---
ENDORSED PT IN STABLE CONDITION TO DAY SHIFT NURSE FOR CONTINUITY OF CARE.
--- NOTE | 2017-04-06 07:30 | NUR ---
RECEIVED REPORT FROM TECHNICAL SUPPORT ASSOCIATE RN, PT IS A/OX1 TO PERSON, ON ROOM AIR. PT DOES NOT HAVE IV ACCESS. PT AMBULATES, WEAK GAIT, ON FALL PRECAUTIONS. PT HAS SCABS AROUND NECK AND LEGS. UPDATED BOARD. VITAL SIGNS WITHIN NORMAL LIMITS. PT IN STABLE CONDITION, NO S/S OF DISTRESS NOTED. BED IN LOWEST POSITION, CALL LIGHT WITHIN REACH. WILL CONTINUE TO MONITOR.
[2017-04-06 08:00] VITALS: BP 130/67
[2017-04-06] MEDS: HYDROCORTISONE 1% CRM 30 GM TUBE TP SCH ×2 (09:02→22:45)
[2017-04-06] MEDS: LABETALOL 100 MG TAB PO SCH ×2 (09:02→21:00)
--- NOTE | 2017-04-06 09:30 | NUR ---
PT HAD BM, BROWN SOFT STOOL. CLEANED PT AND CHANGED BED LINENS AND GOWNS. PT TOLERATED WELL. SKIN INTACT. NO PRESSURE ULCERS NOTED.
--- NOTE | 2017-04-06 12:10 | NUR ---
PT SITTING AT BEDSIDE, NAPPING. NO S/S OF ACUTE DISTRESS. BREATHING EVEN AND UNLABORED.
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
--- NOTE | 2017-04-06 13:57 | NUR ---
CM NOTE NO REVIEW FAXED PER INSURANCE'S REQUEST.
[2017-04-06 15:45] VITALS: BP 142/70
--- NOTE | 2017-04-06 16:00 | NUR ---
PT AMBULATING AROUND ROOM AND SITTING ON CHAIR. NO SIGN OF DISTRESS. VITALS TAKEN.
--- NOTE | 2017-04-06 19:30 | NUR ---
ENDORSED PT TO NETWORK TECHNICAL ANALYST RN, PT IS IN STABLE CONDITION.
--- NOTE | 2017-04-06 19:54 | NUR ---
RECEIVED REPORT FROM DAY SHIFT RN. PT IS A/OX1 TO PERSON.PT AMBULATES, WEAK GAIT. PT APPEARS AGITATED WANDERING AROUND UNIT. ASSISTED BACK TO PATIENTS ROOM. PT IN STABLE CONDITION, NO SIGNS OF DISTRESS NOTED. BED IN LOWEST POSITION, CALL LIGHT WITHIN REACH. WILL CONTINUE TO MONITOR.
[2017-04-06] MEDS ORDERED: HYDROCORTISONE 1% CRM 30 GM TUBE TP SCH (21:00)
--- NOTE | 2017-04-06 21:00 | NUR ---
PT AGIATED. WALKING INTO PANTRY AND OTHER PATIENT ROOMS. ESCORETED BACK TO HIS OWN ROOM AND REORIENTED TO SURROUNDINGS. STUDENT COMPO CONVEYOR OPERATOR AMBULATED WITH PATIENT, REMAINS AGITATED.
--- NOTE | 2017-04-06 21:10 | NUR ---
MEDICATION GIVEN FOR AGITATION. PATIENT TOLERATED WELL AT THIS TIME
[2017-04-07] VITALS: BP 135/84
--- NOTE | 2017-04-07 | NUR ---
PT RESTING IN BED ASLEEP. NO S/S OF DISTRESS. VITALS WNL
--- NOTE | 2017-04-07 07:25 | NUR ---
GAVE PATIENT REPORT AT BEDSIDE TO DAY NURSE, PATIENT ENDORSED IN STABLE CONDITION.
[2017-04-07 08:00] VITALS: BP 137/91
--- NOTE | 2017-04-07 08:00 | NUR ---
RECEIVED PT SITTING ON THE BED. ALERT AND ORIENTED TO NAME CONFUSED AT TIMES. PT OBEYS COMMANDS. NAD. SHIFT ASSESSMENT DONE AND DOCUMENTED.
[2017-04-07] MEDS: LABETALOL 100 MG TAB PO SCH ×2 (09:42→20:41)
[2017-04-07] MEDS: HYDROCORTISONE 1% CRM 30 GM TUBE TP SCH ×2 (09:42→21:55)
[2017-04-07 16:00] VITALS: BP 127/75
--- NOTE | 2017-04-07 18:36 | NUR ---
PT REMAINS STABLE.V/S WNL. SAFETY PRECAUTION MAINTAINED.
--- NOTE | 2017-04-07 19:23 | NUR ---
PT RECEIVED AMBULATING IN ROOM. SHIFT ASSESSMENT DONE AND DOCUMENTED. PLAN OF CARE DISCUSSED. PT HAS NO COMPLAINTS AT THIS TIME. PATIENT APPEARS TO BE CONFUSED WONDERING INTO HALLWAYS AND PANTRY. PT IS AGITATED WILL CONTINUE TO MONITOR.
[2017-04-07] MEDS: HALOPERIDOL IM 5 MG/ML VIAL IM PRN ×2 (20:35→23:44)
[2017-04-07] MEDS: ACETAMINOPHEN 325 MG TAB PO PRN (20:40)
--- NOTE | 2017-04-07 20:49 | NUR ---
PATIENT GRIMMACING APPPEARS TO BE IN DISCOMFORT AND PACING AGITATEDLY IN ROOM. MEDICATED PT ORDERED TOLERATED WELL. WILL CONTINUE TO MONITOR.
--- NOTE | 2017-04-07 22:54 | NUR ---
PT STILL AGITATED AND PACING HALLS AND ROOM. WILL CONTINUE TO MONITOR AND AMBULATE PT TO HELP EASE AGITATION.
--- NOTE | 2017-04-07 23:45 | NUR ---
MEDICATED PT FOR AGITATION. PT STILL PACING ROOM AND HALLWAYS. TOLERATED MEDICATION WELL, WILL CONTINUE TO MONITOR.
[2017-04-07 23:49] VITALS: BP 148/76
--- NOTE | 2017-04-07 23:58 | NUR ---
PATIENT ASLEEP IN BED. NO S/S OF DISTRESS NOTED. MEDICATION EFFECTIVE IN RELIEVING PTS AGITATION.
[2017-04-08] MEDS: HYDROCORTISONE 1% CRM 30 GM TUBE TP SCH ×2 (02:15→20:28)
--- NOTE | 2017-04-08 07:16 | NUR ---
ASSUMED CONTINUITY OF CARE. NO SIGNS AND SYMPTOMS OF ACUTE DISTRESS NOTED. INITIAL ASSESSMENT DONE. RE-ORIENTED TO EVENTS AND SURROUNDINGS. NON-COMPLIANT TO SAFETY. FALL PRECAUTION APPLIED. CALL LIGHT WITHIN REACH.
--- NOTE | 2017-04-08 07:22 | NUR ---
GAVE PATIENT REPORT AT BEDSIDE TO DAY NURSE, PATIENT ENDORSED IN STABLE CONDITION. NO S/S OF OF DISCOMFORT.
[2017-04-08 08:00] VITALS: BP 134/71
--- NOTE | 2017-04-08 08:00 | NUR ---
Patient's Plan of Care was discussed and reviewed with WORKING MANAGER: AJ BUTLER
[2017-04-08] MEDS: LABETALOL 100 MG TAB PO SCH ×2 (08:34→20:27)
--- NOTE | 2017-04-08 10:54 | NUR ---
SPOKE WITH MELECIO FROM [employer]. HE SAID HE SPOKE WITH THE YESTERDAY AND SHE HAD BEEN ILL WITH THE FLU. HE SAID HE OVERNIGHT MAILED THE PACKET TO HER FOR HER TO SIGN AND A LIST OF THINGS SHE NEEDED TO PROVIDE TO HIM. HE SAID SHE WOULD MEED WITH HIM EITHER TODAY OR TOMORROW.
--- NOTE | 2017-04-08 11:43 | NUR ---
DR. VICTOR CAME, SEEN PT. AND REVIEWED PT. CHART.
[2017-04-08 12:00] VITALS: BP 143/72
--- NOTE | 2017-04-08 14:00 | NUR ---
REFUSED ASSISTANCE. AMBULATES ON HALLWAY. TOLERATED WELL. HAD STEADY GAIT AND BALANCE. KEEP FREE FROM INJURY.
--- NOTE | 2017-04-08 16:47 | NUR ---
[address] [place] [address] OFFICER CAME AND SPOKE TO PT. AT BEDSIDE. INFORMED CHARGE NURSE RICARDO TUCKER.
--- NOTE | 2017-04-08 19:25 | NUR ---
BEDSIDE REPORT GIVEN TO DEBORAH TUCKER. IN STABLE CONDITION.
--- NOTE | 2017-04-08 19:30 | NUR ---
RECEIVED REPORT FROM DAY SHIFT NURSE, PATIENT IS STANDING AT THE NURSE'S STATION, NO S/S OF DISTRESS NOTED, RESPIRATION EVEN AND UNLABORED, ASSISTED PATIENT BACK TO HIS ROOM, PATIENT IS SITTING IN THE CHAIR, SAFETY MEASURE ENSURED, WILL CONTINUE TO MONITOR.
--- NOTE | 2017-04-08 21:19 | NUR ---
DUE MEDICATION GIVEN, PATIENT TOLERATED WELL. NO S/S OF DISTRESS NOTED, PATIENT STILL WANDERING AROUND IN THE ROOM, SAFETY MEASURE ENSURED, WILL CONTINUE TO MONITOR.
[2017-04-09] VITALS: BP 148/68
--- NOTE | 2017-04-09 00:43 | NUR ---
PATIENT IS SLEEPING, NO S/S OF DISTRESS NOTED, RESPIRATION EVEN AND UNLABORED, CALL LIGHT WITHIN REACH, SAFETY MEASURE ENSURED, WILL CONTINUE TO MONITOR.
--- NOTE | 2017-04-09 02:44 | NUR ---
PATIENT IS SITTING UP AT THE EDGE OF THE BED, ASKED IF HE NEEDED TO USE THE BATHROOM, PATIENT DID NOT RESPONDED, CALL LIGHT WITHIN REACH, SAFETY MEASURE ENSURED, WILL CONTINUE TO MONITOR.
--- NOTE | 2017-04-09 03:43 | NUR ---
PATIENT STILL WANDERING AROUND IN THE ROOM, SAFETY MEASURE ENSURED, WILL CONTINUE TO MONITOR.
--- NOTE | 2017-04-09 05:42 | NUR ---
PATIENT WAS STANDING AT THE NURSE'S STATION, NO S/S OF DISTRESS NOTED, RESPIRATION EVEN AND UNLABORED, ASSISTED PATIENT BACK TO HIS ROOM, PATIENT IS SITTING IN THE CHAIR, SAFETY MEASURE ENSURED, WILL CONTINUE TO MONITOR.
--- NOTE | 2017-04-09 07:10 | NUR ---
ENDORSED PLAN OF CARE TO DAY SHIFT NURSE AJ, PATIENT IS RESTING IN BED, IN STABLE CONDITION.
--- NOTE | 2017-04-09 07:10 | NUR ---
ASSUMED CONTINUITY OF CARE. NO SIGNS AND SYMPTOMS OF ACUTE DISTRESS NOTED. INITIAL ASSESSMENT DONE. RE-ORIENTED TO EVENTS AND SURROUNDINGS. NON-COMPLIANT TO SAFETY. KEEP COMFORTABLE ON BED. FALL PRECAUTION APPLIED. CALL LIGHT WITHIN REACH.
[2017-04-09] MEDS ORDERED: HYDROCORTISONE 1% CRM 30 GM TUBE TP PRN (07:23)
[2017-04-09 08:00] VITALS: BP 157/82
--- NOTE | 2017-04-09 08:00 | NUR ---
Patient's Plan of Care was discussed and reviewed with TAPERING MACHINE OPERATOR: AJ PHAM
[2017-04-09] MEDS: amLODIPine 5 MG TAB PO SCH (08:36)
[2017-04-09] MEDS: LABETALOL 100 MG TAB PO SCH ×2 (08:36→20:26)
[2017-04-09] MEDS: MEMANTINE 10 MG TAB PO SCH (08:36)
--- NOTE | 2017-04-09 10:25 | NUR ---
SLEEPING WELL AT THIS TIME. NO DIFFICULTY BREATHING NOTICED. CALL LIGHT WITHIN REACH.
--- NOTE | 2017-04-09 11:15 | NUR ---
WOKE UP AND AMBULATES ON THE HALLWAY. REFUSED ASSISTANCE. NON-COMPLIANT TO SAFETY. KEEP FREE FROM INJURY.
[2017-04-09 12:00] VITALS: BP 140/79
--- NOTE | 2017-04-09 14:10 | NUR ---
SLEEPING IN COMFORTABLE POSITION. NO SOB, NOTED. KEEP FREE FROM FALL. FALL PRECAUTION APPLIED. CALL LIGHT WITHIN REACH.
--- NOTE | 2017-04-09 14:31 | NUR ---
CM NOTE NO REVIEW FAXED PER INSURANCE'S REQUEST.
--- NOTE | 2017-04-09 19:14 | NUR ---
BEDSIDE REPORT GIVEN TO DEBORAH TUCKER. IN STABLE CONDITION.
--- NOTE | 2017-04-09 19:20 | NUR ---
RECEIVED REPORT FROM DAY SHIFT NURSE, PATIENT WAS WALKING AROUND THE HALLWAY WITH THE REAL ESTATE APPRAISER, NO S/S OF DISTRESS NOTED, RESPIRATION EVEN AND UNLABORED, SAFETY MEASURE ENSURED, WILL CONTINUE TO MONITOR.
[2017-04-09 23:58] VITALS: BP 139/77
--- NOTE | 2017-04-10 00:38 | NUR ---
TRIED TO ASSIST PATIENT BACK TO HIS BED, BUT PATIENT WILL STAND UP AFTER NURSE LEFT ROOM, PATIENT IS STANDING IN HIS ROOM, SAFETY MEASURE ENSURED, WILL CONTINUE TO MONITOR.
[2017-04-10] MEDS: HALOPERIDOL IM 5 MG/ML VIAL IM PRN ×2 (01:00→20:16)
--- NOTE | 2017-04-10 01:02 | NUR ---
PATIENT BECAME AGITATED, RAISED HIS ARM AND POINTED TO THE DIRECTOR OF FINANCIAL AID AND SHOUTED," YOU." HALDOL 1MG GIVEN ORDERED, SAFETY MEASURE ENSURED, WILL CONTINUE TO MONITOR.
--- NOTE | 2017-04-10 03:32 | NUR ---
PATIENT IS SLEEPING, NO S/S OF DISTRESS NOTED, RESPIRATION EVEN AND UNLABORED, CALL LIGHT WITHIN REACH, SAFETY MEASURE ENSURED, WILL CONTINUE TO MONITOR.
--- NOTE | 2017-04-10 05:17 | NUR ---
PATIENT WAS STANDING AT THE NURSE'S STATION, ASSISTED PATIENT BACK TO HIS ROOM, SAFETY MEASURE ENSURED, WILL CONTINUE TO MONITOR.
--- NOTE | 2017-04-10 07:20 | NUR ---
ENDORSED PLAN OF CARE TO DAY SHIFT RN, PATIENT IS IN STABLE CONDITION.
--- NOTE | 2017-04-10 07:30 | NUR ---
RECEIVED PT SITTING ON THE BEDSIDE CHAIR.. AAOX1, TO NAME ONLY, PT CONFUSED. DOES NOT TALK. NO SOB NOTED. NO C/O PAIN AT THSI TIME. IV IV ACCESS, MD AWARE. CHEST CLEAR. ABDOMEN SOFT, BOWEL SOUNDS PRESENT. WITH MULTIPLE SCABS ON BLE. SLIGHT SWELLING NOTED ON BLE. PT WANDERS AROUND THE UNIT, KEPT WATCHED ALL THE TIME BY UNIT STAFF.
[2017-04-10 08:00] VITALS: BP 110/77
--- NOTE | 2017-04-10 10:00 | NUR ---
PT WAS WALKING AROUND THE UNIT WITH BUSINESS BANKING MANAGER. PT ON STANDBY ASSIST. ACTIVITY TOLERATED WELL.
[2017-04-10] MEDS: MEMANTINE 10 MG TAB PO SCH (10:02)
[2017-04-10] MEDS: amLODIPine 5 MG TAB PO SCH (10:02)
[2017-04-10] MEDS: LABETALOL 100 MG TAB PO SCH ×2 (10:02→20:15)
--- NOTE | 2017-04-10 13:00 | NUR ---
PT CONSUMED 100% OF LUNCH SERVED. FOOD TOLERATED WELL.
--- NOTE | 2017-04-10 13:34 | NUR ---
PER INSURANCE, NO REVIEW NEEDED.
--- NOTE | 2017-04-10 14:10 | NUR ---
PT WAS INCONTINENT WITH BLADDER AND WAS URINATING ON THE FLOOR. REORIENTED PT TO THE BATHROOM, PT ONLY LOOKED AT THE NURSE, NO RESPONSE. WILL CONTINUE TO MONITOR PT.
[2017-04-10 16:00] VITALS: BP 137/77
--- NOTE | 2017-04-10 18:00 | NUR ---
PT CONSUMED 100% OF DINNER SERVED. FOOD TOLERATED WELL.
--- NOTE | 2017-04-10 19:00 | NUR ---
PT SITTING ON THE BEDSIDE CHAIR. NO SOB NOTED. NO SIGNS OF PAIN AT THIS TIME. ENDORSED TO NEXT SHIFT NURSE FOR CONTINUITY OF CARE.
--- NOTE | 2017-04-10 19:10 | NUR ---
RECEIVED REPORT FROM DAY SHIFT RN, PATIENT IS SITTING IN THE CHAIR NEXT TO THE BED, NO S/S OF DISTRESS NOTED, RESPIRATION EVEN AND UNLABORED, PLAN OF CARE DISCUSSED, NO RESPONSE FROM THE PATIENT, SAFETY MEASURE ENSURED, WILL CONTINUE TO MONITOR.
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
[2017-04-11] VITALS: BP 140/80
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
--- NOTE | 2017-04-11 02:50 | NUR ---
PATIENT WALKED OUT OF HIS ROOM, ASSISTED HIM BACK TO HIS ROOM, PATIENT BECAME AGITATED WHEN I TIRED TO STOP HIM COMING OUT. MADE DR. RUSS AWARE, RECEIVED ORDER OF SEROQUEL 25MG, PO, PRN FOR AGITATION AND SUNDOWNING SYNDROME, Q HS.
[2017-04-11] MEDS ORDERED: QUEtiapine FUMARATE 25 MG TAB ONE (02:55)
[2017-04-11] MEDS: QUEtiapine FUMARATE 25 MG TAB PO PRN (03:02)
--- NOTE | 2017-04-11 03:31 | NUR ---
PATIENT IS SLEEPING IN BED, RESPIRATION EVEN AND UNLABORED, NO S/S OF DISTRESS NOTED, CALL LIGHT WITHIN REACH, SAFETY MEASURE ENSURED, WILL CONTINUE TO MONITOR.
[2017-04-11] MEDS: HALOPERIDOL IM 5 MG/ML VIAL IM PRN (06:02)
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
--- NOTE | 2017-04-11 06:16 | NUR ---
ATTEMPTED TO TAKE VITAL SIGNS, BUT PATIENT THREW THE BP CUFF ON THE FLOOR, AND WAVING HIS FIST. WILL CONTINUE TO MONITOR OUTSIDE OF THE ROOM.
--- NOTE | 2017-04-11 07:13 | NUR ---
ENDORSED PLAN OF CARE TO DAY SHIFT RN, PATIENT IS SLEEPING IN BED, NO S/S OF DISTRESS, RESPIRATION EVEN AND UNLABORED.
--- NOTE | 2017-04-11 07:45 | NUR ---
ENDORSEMENT RECEIVED FROM FEED WEIGHER NURSE. PATIENT IS SLEEPING COMFORTABLY, RESPONSIVE TO TOUCH. RESPIRATION EVEN, UNLABOR ON ROOM AIR. SKIN DRY AND WARM. BILATERAL FEET EDEMA +2, RED, SWOLLEN WERE NOTED. DR. TOBIAS WAS MADE AWARE. FLACC 0. NO DISTRESS NOTED AT THIS TIME. BED AT LOW POSITION, SIDE RAILS UP, BED ALARM ACTIVE. CALL LIGHT WITHIN REACH
[2017-04-11 08:00] VITALS: BP 108/69
[2017-04-11] MEDS: MEMANTINE 10 MG TAB PO SCH (08:35)
[2017-04-11] MEDS: LABETALOL 100 MG TAB PO SCH ×2 (08:35→20:08)
[2017-04-11] MEDS: amLODIPine 5 MG TAB PO SCH (08:36)
--- NOTE | 2017-04-11 09:07 | NUR ---
PATIENT GOT UP, DROWSY AND URINATED ON THE FLOOR. PATIENT WAS CLEANED UP AND PUT BACK TO BED. BED ALARM IS ACTIVE
--- NOTE | 2017-04-11 12:19 | NUR ---
PATIENT IS SLEEPING COMFORTABLY, AROUSABLE UPON SHAKING. RESPIRATION EVEN, UNLABOR ON ROOM AIR. NO DISTRESS NOTED AT THIS TIME. CALL LIGHT WITHIN REACH
--- NOTE | 2017-04-11 15:51 | NUR ---
PATIENT IS SLEEPING COMFORTABLY, AROUSABLE BY SHAKING. RESPIRATION EVEN, UNLABOR ON ROOM AIR. FLACC 0. NO DISTRESS NOTED. CALL LIGHT WITHIN REACH.
[2017-04-11 16:01] VITALS: BP 150/70
--- NOTE | 2017-04-11 16:43 | NUR ---
PATIENT IS AWAKE, ALERT. RESPIRATION EVEN, UNLABOR ON ROOM AIR. AMBULATING AROUND THE HALLWAY WITH STAFF, STEADY GAIT. NO DISTRESS NOTED AT THIS TIME.
--- NOTE | 2017-04-11 17:47 | NUR ---
PATIENT IS AWAKE, ALERT, EATING DINNER. RESPIRATION EVEN, UNLABOR ON ROOM AIR. FLACC 0. NO DISTRESS NOTED. CALL LIGHT WITHIN REACH
--- NOTE | 2017-04-11 19:25 | NUR ---
RECEIVED HANDOFF REPORT FROM AM RN. PATIENT A&OX1. PATIENT SMILES AND NODS TO NAME. FLACC 0. PATIENT IS AMBULATORY AND BUSY, REDIRECTION IS CONSTANT, PATIENT IS COOPERATIVE. NO SIGNS OR SYMPTOMS OF ACUTE DISTRESS NOTED. SAFETY MEASURES ENSURED. FALL PROTOCOL IN PLACE. PATIENT REQUIRES CONSTANT ATTENTION WILL CONTINUE TO CLOSELY MONITOR. CALL LIGHT WITHIN REACH.
[2017-04-12] VITALS: BP 117/81
[2017-04-12 06:53] LABS: BASOPHILS # (AUTO) 0.1 K/uL (0.00-0.22); BASOPHILS % (AUTO) 1.6 % (0.0-2.0); EOSINOPHILS # (AUTO) 0.3 K/uL (0-0.4); HEMATOCRIT 40.2 % (36-52); HEMOGLOBIN 13.4 g/dL (12.0-18.0); LYMPHOCYTES % (AUTO) 18.9 % (20.5-51.1); MEAN CORPUSCULAR HEMOGLOBIN 29 pg (27-31); MEAN CORPUSCULAR HGB CONC 33 g/dL (33-37); MEAN CORPUSCULAR VOLUME 87 fL (80-94); MONOCYTES # (AUTO) 0.8 K/uL (0.8-1.0); MONOCYTES % (AUTO) 14.5 % (1.7-9.3); NEUTROPHILS # (AUTO) 3.1 K/uL (1.8-7.7); PLATELET COUNT (AUTO) 329 K/uL (140-450); RED CELL DISTRIBUTION WIDTH 13.4 % (11.6-13.7); WHITE BLOOD COUNT (AUTO) 5.3 K/uL (4.8-10.8)
--- NOTE | 2017-04-12 07:30 | NUR ---
ENDORSED PLAN OF CARE TO AM RN. PATIENT IN STABLE CONDITION
--- NOTE | 2017-04-12 07:45 | NUR ---
ENDORSEMENT RECEIVED FROM AUTO HIKER NURSE. PATIENT IS AWAKE, ALERT, AMBULATE AROUND THE HALLWAY WITH STAFF. RESPIRATION EVEN, UNLABOR ON ROOM AIR. SKIN DRY AND WARM. FLACC 0, NO DISTRESS NOTED AT THIS TIME. BED AT LOW POSITION, CALL LIGHT WITHIN REACH, BED ALARM IS ACTIVE.
[2017-04-12 08:00] VITALS: BP 153/74
[2017-04-12 08:14] LABS: ALBUMIN 3.7 g/dL (3.4-5.0); ANION GAP 13.2 (8-16); CARBON DIOXIDE 29.3 mmol/L (21-32); CREATININE 1.3 mg/dL (0.7-1.3); POTASSIUM 4.5 mmol/L (3.5-5.1); TOTAL BILIRUBIN 0.3 mg/dL (0.0-1.0)
[2017-04-12] MEDS: LABETALOL 100 MG TAB PO SCH ×2 (08:41→20:50)
[2017-04-12] MEDS: MEMANTINE 10 MG TAB PO SCH (08:41)
[2017-04-12] MEDS: amLODIPine 5 MG TAB PO SCH (08:42)
[2017-04-12] MEDS: HALOPERIDOL IM 5 MG/ML VIAL IM PRN ×3 (08:43→21:01)
--- NOTE | 2017-04-12 08:48 | NUR ---
PATIENT AWAKE, AGITATED, TOOK OFF HIS CLOTHES, PULLED OFF BLOOD PRESSURE CUFF, THREW LINENS ON THE FLOOR. MED WAS GIVEN PER ORDER.
--- NOTE | 2017-04-12 11:19 | NUR ---
PATIENT IS SLEEPING COMFORTABLY. RESPIRATION EVEN, UNLABOR ON ROOM AIR. NO DISTRESS NOTED AT THIS TIME. CALL LIGHT WITHIN REACH
--- NOTE | 2017-04-12 14:00 | NUR ---
PATIENT IS AWAKE, ALERT, AMBULATE AROUND THE ROOM, STEADY GAIT. PATIENT STARTED GRIMACING, HOLDING HIS LEFT HAND. PAIN MED WAS GIVEN PER ORDER.
[2017-04-12] MEDS: ACETAMINOPHEN 325 MG TAB PO PRN (14:01)
[2017-04-12] MEDS: DOCUSATE SODIUM 100 MG GELCAP PO PRN (14:01)
--- NOTE | 2017-04-12 15:56 | NUR ---
PATIENT URINATED INTO THE TRASH CAN AND THE FLOOR. TOOK OFF HIS GOWN AND THREW IT AT STAFF. MULTIPLE ATTEMPTS TO PUT HIS GOWN BACK ON. MED WAS GIVEN PER ORDER
[2017-04-12 16:00] VITALS: BP 142/79
--- NOTE | 2017-04-12 17:58 | NUR ---
PATIENT IS AWAKE, ALERT, EATING DINNER. RESPIRATION EVEN, UNLABOR ON ROOM AIR. NO DISTRESS NOTED AT THIS TIME. CALL LIGHT WITHIN REACH
--- NOTE | 2017-04-12 19:25 | NUR ---
ENDORSEMENT GIVEN TO THE RECREATION LEADER NURSE. PATIENT IS STABLE AT THIS TIME
--- NOTE | 2017-04-12 19:26 | NUR ---
RECEIVED HANDOFF REPORT FROM AM RN. PATIENT A&OX1. FLACC 0. PATIENT IS WANDERING AROUND ROOM. SAFETY MEASURES IN PLACE. FALL RISK PROTOCOL IN PLACE. NO SIGNS OR SYMPTOMS OF ACUTE DISTRESS NOTED. CALL LIGHT WITHIN REACH. WILL CONTINUE TO MONITOR.
[2017-04-12] MEDS: QUEtiapine FUMARATE 25 MG TAB PO PRN (20:52)
--- NOTE | 2017-04-12 21:10 | NUR ---
ATTEMPTED TO GIVE PATIENT LABETOLOL AND SEROQUEL. WHEN PUT IN APPLESAUCE PATIENT GRABBED MY HAND AND THREW THE SPOON AND MEDICATION TO THE FLOOR. NEW LABETOLOL GIVEN ON SECOND ATTEMPT. PATIENT TOLERATED WELL. NO SIGNS OR SYMPTOMS OF ACUTE DISTRESS NOTED. SAFETY MEASURES ENSURED. WILL CONTINUE TO MONITOR
[2017-04-13] VITALS: BP 149/82
--- NOTE | 2017-04-13 07:30 | NUR ---
RECEIVED REPORT FROM LIVE STUDY MANAGER RN. PATIENT IS SLEEPING IN BED. HAS NO SIGNS AND SYMPTOMS OF ACUTE DISTRESS NOTED AT THIS TIME. HAS NO IV AT THIS TIME. HAS 2+ PITTING EDEMA ON BILATERAL ANKLES AND FEET. SAFETY MEASURES ARE IN PLACE. CONSTANT REINFORCEMENT AND REDIRECTION IS NEEDED. WILL CONTINUE TO MONITOR.
[2017-04-13 08:00] VITALS: BP 168/96
[2017-04-13] MEDS: amLODIPine 5 MG TAB PO SCH (08:05)
[2017-04-13] MEDS: LABETALOL 100 MG TAB PO SCH ×2 (08:05→21:40)
[2017-04-13] MEDS: MEMANTINE 10 MG TAB PO SCH (08:05)
[2017-04-13] MEDS: HALOPERIDOL IM 5 MG/ML VIAL IM PRN (08:41)
--- NOTE | 2017-04-13 09:51 | NUR ---
SPOKE WITH MELECIO FROM [employer]. [phone]. HE SAID HE HAD THE MEDICAL APPLICATION PAPERS SENT TO HER AND ALL SHE HAD TO DO WAS SIGN THEM. HE SAID THE PAPERS WERE ALREADY FILLED OUT. HE LEFT MESSAGES WITH HER AND SHE HASN'T CALLED BACK. HE IS GOING TO REACH OUT TO HER AGAIN TODAY.
[2017-04-13 16:00] VITALS: BP 147/80
--- NOTE | 2017-04-13 19:30 | NUR ---
RECEIVED FROM AM NURSE AWAKE AND ALERT. NO SOB. FLACC O. WITH HX. DEMENTIA. PT. KEEPS WALKING AROUND HIS ROOM AND SOMETIMES IN HALLWAY. WILL CLOSELY MONITOR.
--- NOTE | 2017-04-13 19:43 | NUR ---
ENDORSED PATIENT TO PLISSE MACHINE OPERATOR HELPER RN FOR CONTINUITY OF CARE. PATIENT IN STABLE CONDITION.
--- NOTE | 2017-04-13 23:22 | NUR ---
PT. REFUSED TO STAY IN BED. PREFERS TO SIT ON THE CHAIR AND DOZE OFF. MONITORED CLOSELY BY MANDARIN CHINESE TEACHER AND NURSES.
--- NOTE | 2017-04-14 | NUR ---
PT. STILL AWAKE AND REFUSING TO LET US TAKE HIS VITAL SIGN. WALKING AROUND THE ROOM. PROVIDED WITH SNACKS AND JUICE.
--- NOTE | 2017-04-14 01:33 | NUR ---
STILL AWAKE AT THIS TIME. MONITORED CLOSELY BY CNAS AND NURSES.
--- NOTE | 2017-04-14 03:45 | NUR ---
SLEEPING. NO RESTLESSNESS. CALL LIGHT WITH IN REACH. NO SOB.
--- NOTE | 2017-04-14 06:42 | NUR ---
AM CARE GIVEN TO PT. WOKE UP AND WENT BACK TO SLEEP. PT. TRIED TO GET OUT OF BED WHEN CNAS CLEANED HIM UP. PACIFIED BY CNAS AND PUT HIM BACK TO BED WITHOUT INCIDENT. SLEPT BACK.
--- NOTE | 2017-04-14 07:30 | NUR ---
RECEIVED REPORT FROM ROTARY SWAGING MACHINE OPERATOR RN. PATIENT IS SLEEPING IN BED. HAS NO SIGNS AND SYMPTOMS OF ACUTE DISTRESS NOTED AT THIS TIME. HAS NO IV AT THIS TIME. HAS 2+ PITTING EDEMA ON BILATERAL ANKLES AND FEET. SAFETY MEASURES ARE IN PLACE. CONSTANT REINFORCEMENT AND REDIRECTION IS NEEDED. WILL CONTINUE TO MONITOR.
[2017-04-14 08:21] VITALS: BP 125/54
[2017-04-14] MEDS: amLODIPine 5 MG TAB PO SCH (09:38)
[2017-04-14] MEDS: MEMANTINE 10 MG TAB PO SCH (09:39)
[2017-04-14] MEDS: LABETALOL 100 MG TAB PO SCH ×2 (09:39→20:42)
--- NOTE | 2017-04-14 13:24 | NUR ---
ANGIE MAJANO WITH [facility] HAS BROUGHT IN ALL DOCUMENTS REQUIRED FOR [facility] APPLICATION. APPLICATION WILL BE FILED TODAY TO [facility] OFFICE.
--- NOTE | 2017-04-14 15:18 | NUR ---
PER [facility], NO REVIEW NEEDED.
[2017-04-14 16:00] VITALS: BP 129/68
--- NOTE | 2017-04-14 19:10 | NUR ---
Gave report to maintenance supervisor 2nd shift nurse for continuity of care. Patient is in stable condition.
--- NOTE | 2017-04-14 19:11 | NUR ---
RECD. RESTING IN BED, AWAKE, ALERT, SELDOM SPEAKS, WALKING AROUND THE HALLWAY, ASSISTED BACK TO BED AND REORIENTED TO HOSPITAL SETTING. NO IV LINE. NOTED BILATERAL 2+PITTING EDEMA ON BLE. OBEYS WHEN DIRECTED TO GO BACK TO ROOM BUT GOES OUT WHEN LEFT UNATTENDED. NO APPEARANCE OF PAIN NOTED 0/10.
--- NOTE | 2017-04-14 20:00 | NUR ---
Patient's Plan of Care was discussed and reviewed with LIVESTOCK TRADER: SUNIL
--- NOTE | 2017-04-14 20:42 | NUR ---
TAKE HIS NIGHT MEDICATIONS WITH APPLE SAUCE.
[2017-04-14] MEDS: QUEtiapine FUMARATE 25 MG TAB PO PRN (20:43)
--- NOTE | 2017-04-14 21:25 | NUR ---
SUDDENLY GETS MAD AT EVERYONE. SECURITY CALLED BUT STILL UNABLE TO CONTROL PATIENT.
--- NOTE | 2017-04-14 21:40 | NUR ---
STARTED THROWING THINGS INSIDE HIS ROOM, TWO SECURITY GUARDS TRYING TO CONTROL COMBATIVE BEHAVIOR. SHOUTS WHEN SECURITY ORDERED TO GO BACK TO BED.
[2017-04-14] MEDS: HALOPERIDOL IM 5 MG/ML VIAL IM PRN (21:46)
--- NOTE | 2017-04-14 21:46 | NUR ---
VERY AGITATED, HARD TO CONTROL MEDICATED WITH HALDOL ORDERED.
--- NOTE | 2017-04-14 21:53 | NUR ---
STILL VERY AGITATED, BOXED THREE TIMES THE BEDSIDE TABLE. ASSISTED TO LAY IN BED BY THE RISK MANAGEMENT INTERNSHIP AND JOB COUNSELOR.
--- NOTE | 2017-04-14 22:00 | NUR ---
STARTING TO BE DROWSY WHILE IN BED, SECURITY GUARDS LEFT, MADE WARM AND COMFORTABLE WITH WARM BLANKETS.
--- NOTE | 2017-04-14 22:07 | NUR ---
INFORMED DR. ZIEGLER REGARDING PATIENT UNCONTROLLABLE BEHAVIOR, NO NEW MEDICATION ORDERED JUST GIVEN HALDOL AGAIN ORDERED.
--- NOTE | 2017-04-14 23:30 | NUR ---
FOUND AWAKE, STANDING IN FRONT OF DOOR VOIDING ON THE FLOOR. DIFFICULT TO HANDLE TO TO BACK TO BED AND SLEEP. CALLED SECURITY.
[2017-04-15] VITALS: BP 150/71
--- NOTE | 2017-04-15 | NUR ---
RESISTING BUT ABLE TO PUT BACK TO BED WITH HELP OF TWO SECURITY MEN. SLEEP AFTER A FEW MINUTES.
[2017-04-15] MEDS: HALOPERIDOL IM 5 MG/ML VIAL IM PRN (01:22)
--- NOTE | 2017-04-15 01:22 | NUR ---
AWAKE, WITH AGITATION,. MEDICATED WITH HALDOL 1 MG. ORDERED.
--- NOTE | 2017-04-15 01:52 | NUR ---
NO AGITATION, SLEEPING COMFORTABLY.
--- NOTE | 2017-04-15 05:00 | NUR ---
WOKE UP, ASSISTED TO BR TO VOID. GUIDED TOWARDS BED AND OBEYED, BACK TO SLEEP. SAFETY MAINTAINED.
--- NOTE | 2017-04-15 06:46 | NUR ---
STILL SLEEPING COMFORTABLY IN BED. RESPIRATION EVEN AND UNLABORED. CONDITION REMAIN STABLE. WILL ENDORSE TO AM NURSE FOR CONTINUITY OF CARE.
--- NOTE | 2017-04-15 07:15 | NUR ---
RECEIVED REPORT FROM RETORT ENGINEER NURSE. PT IS RESTING IN BED, AAOX1, CONFUSED, AMBULATORY, PT HAS NO IV ACCESS, NO S/S OF RESPIRATORY DISTRESS OR DISCOMFORT NOTED, PT HAS BILATERAL LOWER EXT. EDEMA AND ERYTHEMA, DISCUSSED PLAN OF CARE WITH PT, PT UNABLE TO COMPREHEND, SAFETY/FALL PRECAUTIONS ARE IN PLACE, CALL LIGHT IS WITHIN REACH, WILL CONTINUE TO MONITOR.
[2017-04-15 08:00] VITALS: BP 135/64
[2017-04-15] MEDS: LABETALOL 100 MG TAB PO SCH ×2 (09:37→21:07)
[2017-04-15] MEDS: amLODIPine 5 MG TAB PO SCH (09:37)
[2017-04-15] MEDS: MEMANTINE 10 MG TAB PO SCH (09:38)
--- NOTE | 2017-04-15 09:38 | NUR ---
DUE MEDICATION GIVEN, PT TOLERATED WELL, PT IS SITTING ON CHAIR AT BEDSIDE, WILL CONTINUE TO MONITOR.
--- NOTE | 2017-04-15 11:40 | NUR ---
PT AMBULATING AROUND THE NURSES STATION WITH THE PINBALL MACHINE REPAIRER'S ASSISTANCE.
--- NOTE | 2017-04-15 13:11 | NUR ---
CM NOTE NO REVIEW FAXED PER INSURANCE'S REQUEST.
--- NOTE | 2017-04-15 13:25 | NUR ---
PT AMBULATING DOWN THE REDD WITH BEEF SPLITTER.
--- NOTE | 2017-04-15 14:40 | NUR ---
04/15/17 RD FOLLOW UP COMPLETED. PLEASE REFER TO NUTRITION ASSESSMENT UNDER CARE ACTIVITY FOR ESTIMATED NUTRITIONAL NEEDS. CONTINUE CURRENT DIET ORDERED RD TO FOLLOW-UP IN 5-7 DAYS PATIENT IS LOW RISK. LINNETTE GRIMES RD
--- NOTE | 2017-04-15 15:32 | NUR ---
PT AMBULATING AROUND THE NURSES STATION ACCOMPANIED BY MARIA ANTONIA VALDEZ.
[2017-04-15 16:00] VITALS: BP 120/60
--- NOTE | 2017-04-15 19:10 | NUR ---
ENDORSED PT TO SHREDDED FILLER CUTTER OPERATOR NURSE FOR CONTINUITY OF CARE. PT STABLE AT THIS TIME.
--- NOTE | 2017-04-15 19:11 | NUR ---
RECD. AMBULATING IN THE HALLWAY WITH GROUP DIRECTOR, RESPIRATION EVEN AND UNLABORED. A/OX1, SELDOM SPEAK. GAIT STEADY BUT WALKS SLOWLY. WANTS TO TOUCH ANYTHING THAT IS ACCESSIBLE TO HIM, OBEYS WHEN REDIRECTED HIS WALKING DIRECTION. NO APPEARANCE OF PAIN NOTED 0/10.
--- NOTE | 2017-04-15 20:00 | NUR ---
Patient's Plan of Care was discussed and reviewed with GLAZE MAKER: SUNIL
--- NOTE | 2017-04-15 21:00 | NUR ---
ALWAYS AMBULATING AROUND, NO AGITATION NOTED.
[2017-04-16] VITALS: BP 131/74
--- NOTE | 2017-04-16 | NUR ---
STILL AWAKE, SITTING ON BED.
--- NOTE | 2017-04-16 01:30 | NUR ---
SLEEPING IN BED COMFORTABLY.
--- NOTE | 2017-04-16 04:00 | NUR ---
WOKE UP EARLY STARTED WALKING AROUND.
--- NOTE | 2017-04-16 07:00 | NUR ---
CONDITION REMAIN STABLE. WILL ENDORSE TO AM NURSE FOR CONTINUITY OF CARE.
--- NOTE | 2017-04-16 07:20 | NUR ---
RECEIVED REPORT FROM BUSINESS ANALYST INTERN AT BEDSIDE FOR CONTINUITY OF CARE.
[2017-04-16 08:00] VITALS: BP 165/81
--- NOTE | 2017-04-16 08:00 | NUR ---
PATIENT ALERT ABLE TO VERBALIZE NEEDS. APHASIC.NO ACUTE DISTRESS NOTED. RESP EVEN AND UNLABORED. LUNG SOUNDS CLEAR IN ALL AGUILERA. BOWEL SOUNDS ACTIVE X 4 QUADS. PATIENT ON REGULAR DIET PATIENT AMBULATES INDEPENDENTLY. PLAN OF CARE DISCUSSED WITH PATIENT. PATIENT VERBALIZED UNDERSTANDING AND AGREEMENT. SKIN INTACT. CALL LIGHT WITHIN REACH. FREQUENT VISUAL CHECKS. WILL CONT TO MONITOR PT.
[2017-04-16] MEDS: LABETALOL 100 MG TAB PO SCH ×2 (09:25→22:23)
[2017-04-16] MEDS: MEMANTINE 10 MG TAB PO SCH (09:25)
[2017-04-16] MEDS: amLODIPine 5 MG TAB PO SCH (09:25)
--- NOTE | 2017-04-16 09:25 | NUR ---
ADMINISTERED MORNING MEDICATIONS SCHEDULED. PATIENT TOLERATED WELL. PATIENT WAS AMBULATING IN HALLS WITH ASSIST.. RESIDENT ALERT APHASIC. FLACC 0. NO ACUTE DISTRESS. NO C/O PAIN. CALL LIGHT WITHIN REACH. FREQUENT VISUAL CHECKS.WILL CONT TO MONITOR.
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
--- NOTE | 2017-04-16 11:05 | NUR ---
PATIENT ALERT BUT APHASIC. WALKING AROUND WITH ASSIST. FREQUENT VISUAL CHECKS. NO ACUTE DISTRESS NOTED. NO PAIN NOTED. FLACC 0. WILL CONT TO MONITOR
--- NOTE | 2017-04-16 13:00 | NUR ---
PATIENT ALERT BUT APHASIC . APPEARS TO BE IN [employer] . NO ACUTE DISTRESS NOTED. FLACC 0.RESP EVEN AND UNLABORED. FREQUENT VISUAL CHECKS. WILL CONT TO MONITOR PT.
--- NOTE | 2017-04-16 15:00 | NUR ---
PATIENT ALERT BUT APHASIC .WALKING HALLS WITH SBA. NO ACUTE DISTRESS NOTED. RESP EVEN AND UNLABORED. FREQUENT VISUAL CHECKS. WILL CONT TO MONITOR PT.
--- NOTE | 2017-04-16 15:26 | NUR ---
CM NOTE NO REVIEW FAXED PER INSURANCE'S REQUEST.
[2017-04-16 16:00] VITALS: BP 135/60
--- NOTE | 2017-04-16 17:30 | NUR ---
PATIENT ALERT BUT APHASIC . NO ACUTE DISTRESS NOTED. RESP EVEN AND UNLABORED. FREQUENT VISUAL CHECKS. WALKING HALLS APPEARS TO BE IN [employer].WILL CONT TO MONITOR PT.
--- NOTE | 2017-04-16 17:30 | NUR ---
PATIENT ALERT BUT APHASIC . NO ACUTE DISTRESS NOTED. FLACC-0. PATIENT STABLE. REPORT GIVEN TO ASSURANCE SPECIALIST NURSE AT BEDSIDE FOR CONTINUITY OF CARE.
--- NOTE | 2017-04-16 19:25 | NUR ---
RECEIVED PT FROM DAY SHIFT NURSE JOSÉ LUIS. APHASIC. AMBULATORY. NO IV IN PLACE AT THIS TIME. PT WALKING/WANDERING AROUND UNIT. NO S/S OF RESPIRATORY DISTRESS OR DISCOMFORT AT THIS TIME. WILL CONTINUE TO MONITOR.
--- NOTE | 2017-04-16 22:30 | NUR ---
NEW IDENTIFICATION BAND APPLIED. PT TOLERATED MEDICATION WITH APPLE SAUCE. PT IN ROOM WITH ALEX TO OBSERVE. NO S/S OF RESPIRATORY DISTRESS NOTED AT THIS TIME. WILL CONTINUE TO MONITOR.
[2017-04-17] VITALS: BP 117/76
--- NOTE | 2017-04-17 00:07 | NUR ---
PT TOLERATED VITAL SIGNS WELL. NO S/S OF RESPIRATORY DISTRESS OR DISCOMFORT NOTED AT THIS TIME. JOSÉ MIGUEL BOOGIE OBSERVING PT IN ROOM. WILL CONTINUE TO MONITOR.
--- NOTE | 2017-04-17 02:47 | NUR ---
PT WALKING IN ROOM WITH JOSÉ MIGUEL BOOGIE. NO S/S OF RESPIRATORY DISTRESS OR DISCOMFORT NOTED AT THIS TIME. WILL CONTINUE TO MONITOR.
--- NOTE | 2017-04-17 04:48 | NUR ---
PT SLEEPING AT THIS TIME. NO S/S OF RESPIRATORY DISTRESS OR DISCOMFORT AT THIS TIME. CALL LIGHT WITHIN REACH. BED IN LOWEST POSITION. WILL CONTINUE TO MONITOR.
--- NOTE | 2017-04-17 07:21 | NUR ---
ENDORSED PT TO NURSE JOSÉ LUIS. PT IN STABLE CONDITION. NO S/S OF RESPIRATORY DISTRESS OR DISCOMFORT NOTED AT THIS TIME.
--- NOTE | 2017-04-17 07:22 | NUR ---
RECEIVED REPORT FROM DIRECTOR SPEECH NURSE AT BEDSIDE FOR CONTINUITY OF CARE.
[2017-04-17 08:00] VITALS: BP 118/68
--- NOTE | 2017-04-17 08:00 | NUR ---
PATIENT ALERT BUT APHASIC. NO ACUTE DISTRESS NOTED. PATIENT WANDERING HALLS. NO ACUTE DISTRESS NOTED. RESP EVEN AND UNLABORED. +2 EDEMA NOTED BILAT LOWER EXTREMITIES. LUNG SOUNDS CLEAR. BOWEL SOUNDS CLEAR. WILL CONT TO MONITOR PT.
[2017-04-17] MEDS: MEMANTINE 10 MG TAB PO SCH (08:40)
[2017-04-17] MEDS: amLODIPine 5 MG TAB PO SCH (08:40)
[2017-04-17] MEDS: LABETALOL 100 MG TAB PO SCH ×2 (08:40→20:09)
--- NOTE | 2017-04-17 10:00 | NUR ---
PATIENT ALERT BUT APHASIC. PATIENT WANDERING HALLS DIFFICULT TO REDIRECT. NO ACUTE DISTRESS NOTED. RESP EVEN AND UNLABORED.FREQUENT VISUAL CHECKS. WILL CONT TO MONITOR PT.
[2017-04-17] MEDS: HALOPERIDOL IM 5 MG/ML VIAL IM PRN ×2 (12:20→21:15)
--- NOTE | 2017-04-17 12:30 | NUR ---
HALDOL ADMINISTERED IM PATIENT AGITATED TO RIGHT DELTOID. TOLERATED WELL. FREQUENT VISUAL CHECKS. PATIENT WANDERING HALLS NOT EASY TO REDIRECT. WILL CONT TO MONITOR PT.
--- NOTE | 2017-04-17 14:30 | NUR ---
PATIENT ALERT BUT APHASIC. PATIENT NO LONGER AGITATED. WAS STRIKING OUT EARLIER WITHOUT CONSOLE. PATIENT WALKING AROUND IN ROOM ORGANIZING SHEETS AND PILLOWS. WILL CONT TO MONITOR PT.
--- NOTE | 2017-04-17 16:36 | NUR ---
PATIENT ALERT BUT APHASIC. PATIENT SLEPT FOR 5 MINUTES THEN GOT OUT OF BED AND STARTED WALKING AROUND BEDROOM. NO ACUTE DISTRESS NOTED. RESP EVEN AND UNLABORED.FREQUENT VISUAL CHECKS. WILL CONT TO MONITOR PT.
[2017-04-17 18:00] VITALS: BP 114/66
--- NOTE | 2017-04-17 19:00 | NUR ---
ENDORSED REPORT TO SURGICAL GARMENT FITTER NURSE AT BEDSIDE FOR CONTINUITY OF CARE. PATIENT STABLE NO ACUTE DISTRESS NOTED. WALKING AROUND IN ROOM.
--- NOTE | 2017-04-17 19:05 | NUR ---
RECEIVED PT FROM DAY SHIFT NURSE JOSÉ LUIS. APHASIC. AMBULATORY WALKING IN BEDROOM AND UNIT. PT HAS NO IV SITE. NO S/S OF RESPIRATORY DISTRESS OR DISCOMFORT NOTED. WILL CONTINUE TO MONITOR.
--- NOTE | 2017-04-17 20:09 | NUR ---
PT TOLERATED MEDICATION WELL IN APPLE SAUCE. BLOOD PRESSURE 147/63. REORIENTED PT BACK TO ROOM. PT NEEDING CONSTANT ORIENTATION BACK TO ROOM.
--- NOTE | 2017-04-17 21:15 | NUR ---
PT NOT FOLLOWING COMMANDS, BECOMING VIOLENT WITH BED, TABLE, CHAIRS AND HOSPITAL EMPLOYEES. SECURITY CALLED. HALDOL GIVEN FOR AGITATION.
--- NOTE | 2017-04-17 22:00 | NUR ---
PT RESTING IN BED WITH JOSÉ MIGUEL ROD OBSERVING FOR SAFETY.
--- NOTE | 2017-04-17 23:39 | NUR ---
PT AWAKE AND WALKING AROUND ROOM. FOLDING PILLOW CASES, TOUCHING SINK AND MATERIALS ON SIDE TABLE. PT NEEDS TO BE REDIRECTED. DIFFICULT TO FOLLOW DIRECTIONS. WILL CONTINUE TO MONITOR.
[2017-04-18] VITALS: BP 123/75
--- NOTE | 2017-04-18 00:20 | NUR ---
PT IN ROOM LOOKING DROWSY. UNABLE TO REDIRECT TO LAY DOWN IN BED AT THIS TIME. SITTING IN BED. NO S/S OF RESPIRATORY DISTRESS OR DISCOMFORT NOTED AT THIS TIME. WILL CONTINUE TO MONITOR.
--- NOTE | 2017-04-18 02:12 | NUR ---
PT SLEEPING IN BED AT THIS TIME. NO S/S OF RESPIRATORY DISTRESS OR DISCOMFORT NOTED. WILL CONTINUE TO MONITOR.
--- NOTE | 2017-04-18 04:23 | NUR ---
FOUND PT SITTING IN BED WITHOUT GOWN WHEN I RETURNED FROM MY ROUNDS. NO S/S OF RESPIRATORY DISTRESS OR DISCOMFORT NOTED AT THIS TIME. DRESSED PT AND WAS ABLE TO LAY HIM DOWN IN BED. PT CONTINUES TO SLEEP. WILL CONTINUE TO MONITOR.
--- NOTE | 2017-04-18 06:58 | NUR ---
PT SLEEPING AT THIS TIME. NO S/S OF RESPIRATORY DISTRESS OR DISCOMFORT NOTED AT THIS TIME. BED IN LOWEST POSITION. CALL LIGHT WITHIN REACH. WILL CONTINUE TO MONITOR.
--- NOTE | 2017-04-18 07:13 | NUR ---
ENDORSED PT TO NURSE CESPEDES. PT STABLE AT THIS TIME.
--- NOTE | 2017-04-18 07:13 | NUR ---
ASSUMED CONTINUITY OF CARE. NO SIGNS AND SYMPTOMS OF ACUTE DISTRESS NOTICED. RE-ORIENTED TO EVENTS AND SURROUNDINGS. KEEP COMFORTABLE ON BED. NON-COMPLIANT TO SAFETY. FALL PRECAUTION APPLIED. CALL LIGHT WITHIN REACH.
[2017-04-18 08:00] VITALS: BP 135/51
--- NOTE | 2017-04-18 08:00 | NUR ---
Patient's Plan of Care was discussed and reviewed with CAT HOOKER: AJ ROB.
[2017-04-18] MEDS: amLODIPine 5 MG TAB PO SCH (08:31)
[2017-04-18] MEDS: MEMANTINE 10 MG TAB PO SCH (08:31)
[2017-04-18] MEDS: LABETALOL 100 MG TAB PO SCH ×2 (08:31→20:13)
--- NOTE | 2017-04-18 08:35 | NUR ---
DR. LINARES CAME, REVIEWED PT. CHART AND SEEN PT..
[2017-04-18] MEDS ORDERED: HALOPERIDOL 1 MG TAB PO SCH ×2 (09:40→21:00)
[2017-04-18 12:00] VITALS: BP 125/62
--- NOTE | 2017-04-18 14:30 | NUR ---
PT. SLEEPING AT THE CHAIR. REFUSED TO GO BACK TO BED. NON-COMPLIANT TO SAFETY. KEEP FREE FROM INJURY.
--- NOTE | 2017-04-18 19:20 | NUR ---
BEDSIDE REPORT GIVEN TO JAYME ASHLEY -DAVID. IN STABLE CONDITION.
--- NOTE | 2017-04-18 19:21 | NUR ---
RECEIVED REPORT FROM DAY SHIFT NURSE. PT WALKING IN THE ROOM. PT IS NON VERBAL. NO S/S OF DISTRESS. NO IV ACCESS. SAFETY PRECAUTION IN PLACE. CALL LIGHT WITHIN REACH.
[2017-04-18] MEDS ORDERED: QUEtiapine FUMARATE 25 MG TAB PO PRN (21:00)
--- NOTE | 2017-04-18 22:05 | NUR ---
PT AWAKE, WALKING IN THE ROOM. DOESN'T FOLLOW COMMANDS. SAFETY PRECAUTION IN PLACE.
[2017-04-19] VITALS: BP 123/62
--- NOTE | 2017-04-19 00:08 | NUR ---
PT AGITATED. MEDS GIVEN ORDERED. PT DOESN'T FOLLOW COMMANDS.
--- NOTE | 2017-04-19 01:10 | NUR ---
PT STILL WALKING INSIDE THE ROOM. REFUSED TO GO TO HIS BED.
--- NOTE | 2017-04-19 03:30 | NUR ---
PT SLEEPING IN BED. NO S/S OF DISTRESS OR DISCOMFORT. SAFETY PRECAUTION IN PLACE.
--- NOTE | 2017-04-19 06:00 | NUR ---
PT SITTING ON BED. NO AGITATION NOTED. NO S/S OF DISTRESS.
--- NOTE | 2017-04-19 07:00 | NUR ---
ENDORSED PT TO DAY SHIFT NURSE. PT IN STABLE CONDITION.
--- NOTE | 2017-04-19 07:10 | NUR ---
ASSUMED CONTINUITY OF CARE. NO SIGNS AND SYMPTOMS OF ACUTE DISTRESS NOTICED. RE-ORIENTED TO EVENTS AND SURROUNDINGS. NON-COMPLIANT TO SAFETY. FALL PRECAUTION APPLIED. CALL LIGHT WITHIN REACH.
--- NOTE | 2017-04-19 07:34 | NUR ---
Patient's Plan of Care was discussed and reviewed with ASSOCIATE OF SCIENCE IN NURSING: AJ ROB.
[2017-04-19 08:00] VITALS: BP 133/79
[2017-04-19] MEDS: amLODIPine 5 MG TAB PO SCH (09:33)
[2017-04-19] MEDS: LABETALOL 100 MG TAB PO SCH ×2 (09:33→20:52)
[2017-04-19] MEDS: HALOPERIDOL 1 MG TAB PO SCH ×2 (10:04→20:51)
[2017-04-19 12:00] VITALS: BP 131/74
--- NOTE | 2017-04-19 12:20 | NUR ---
PT. AGITATED, AGGRESSIVE AND COMBATIVE. WENT INSIDE ROOM 108 AND ROOM 115 REFUSED TO GO OUT. HITTING ANYONE GET CLOSER TO HIM. CALLED SECURITY STAFF. KEEP PT. FREE FROM INJURY. INFORMED CHARGE NURSE FAYE TUCKER
[2017-04-19] MEDS: HALOPERIDOL IM 5 MG/ML VIAL IM PRN (12:48)
--- NOTE | 2017-04-19 13:25 | NUR ---
CALLED DR. LINARES AND INFORMED THAT PT. STILL AGITATED, AGGRESSIVE AND COMBATIVE. PT. ALSO GOING INSIDE OTHER PT. ROOM AND ONCE INSIDE THE ROOM PT. REFUSED TO GO OUT. GOT T.O. READ BACK AND VERIFIED. INFORMED CHARGE NURSE ABOUT DR. LINARES T.O..
[2017-04-19] MEDS ORDERED: HALOPERIDOL IM 5 MG/ML VIAL IM SCH (13:30)
--- NOTE | 2017-04-19 17:30 | NUR ---
RELEASED FROM RONAL SOFT WRIST RESTRAINT AND SERVE DINNER TRAY. CALM, AND A LITTLE BIT COOPERATIVE AT THIS TIME. KEEP FREE FROM INJURY.
--- NOTE | 2017-04-19 19:08 | NUR ---
BEDSIDE REPORT GIVEN TO FRANCY TUCKER. IN STABLE CONDITION. ALSO ENDORSED ABOUT PT. AGGRESSIVENESS DURING SHIFT.
--- NOTE | 2017-04-19 19:09 | NUR ---
RECEIVED BEDSIDE REPORT FROM DAY SHIFT NURSE AJ STONER, PT STABLE, CALM IN ROOM, PT NO LONGER ON RESTRAINTS, NO DISTRESS NOTED, CALL LIGHT WITHIN REACH WILL CONTINUE TO MONITOR.
--- NOTE | 2017-04-19 19:45 | NUR ---
WALKED WITH PT AROUND THE UNIT X3, PT TOLERATED WELL, NO DISTRESS NOTED, WENT BACK TO ROOM, PT SAT DOWN ON CHAIR AND SLEPT ON CHAIR.
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
[2017-04-19] MEDS ORDERED: QUEtiapine FUMARATE 25 MG TAB PO PRN (21:00)
--- NOTE | 2017-04-19 22:24 | NUR ---
CLEANED PT AND GAVE PT SEROQUEL, PT TOLERATED WELL, NO DISTRESS NOTED, WILL CONTINUE TO MONITOR.
--- NOTE | 2017-04-19 22:40 | NUR ---
PT SLEEPING ON SIDE OF BED, UNABLE TO MOVE PT TO LIE ON BED, PT REFUSED. WILL CONTINUE TO MONITOR.
[2017-04-20] VITALS: BP 129/72
--- NOTE | 2017-04-20 00:01 | NUR ---
CHECKED ON PT, PT SLEEPING ON CHAIR, NO DISTRESS NOTED, WILL CONTINUE TO MONITOR.
--- NOTE | 2017-04-20 02:10 | NUR ---
PT SLEEPING ON BED, ATTEMPT TO MOVE PT TO BED, PT REFUSED, NO DISTRESS NOTED, CALL LIGHT WITHIN REACH, WILL CONTINUE OT MONITOR.
--- NOTE | 2017-04-20 04:37 | NUR ---
CHECKED ON PT, PT STILL SLEEPING ON CHAIR, UNABLE TO MOVE PT TO BED TO SLEEP ON BED. PT REFUSED. WILL CONTINUE TO MONITOR.
--- NOTE | 2017-04-20 07:30 | NUR ---
ENDORSED PLAN OF CARE TO DAY SHIFT NURSE CAROLINE RN, PT STABLE, NO DISTRESS NOTED, CALL LIGHT WITHIN REACH.
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
[2017-04-20] MEDS: LABETALOL 100 MG TAB PO SCH ×2 (09:30→21:14)
[2017-04-20] MEDS: HALOPERIDOL 1 MG TAB PO SCH ×2 (09:31→21:14)
[2017-04-20] MEDS: MEMANTINE 10 MG TAB PO SCH (09:31)
[2017-04-20] MEDS: amLODIPine 5 MG TAB PO SCH (09:32)
[2017-04-20 11:23] VITALS: BP 127/76
--- NOTE | 2017-04-20 13:00 | NUR ---
These Circulation Sales Representative attempted to contact Patient's eKnia Dash at to discuss and find out progress or outcome on applications submitted for stated assistance ([facility]). No response from Mrs. Dash and I left her a voice mail MSG with my contact information and requested for a call back ANAHY.
[2017-04-20 16:00] VITALS: BP 156/75
--- NOTE | 2017-04-20 19:39 | NUR ---
PT REPORT GIVEN AT BEDSIDE PT IN STABLE CONDITION
--- NOTE | 2017-04-20 19:40 | NUR ---
RECD. WALKING INSIDE HIS ROOM, NO RESPIRATORY DISTRESS NOTED. NO AGITATION. KEEP ON TOUCHING OBJECTS INSIDE ROOM. REORIENTED TO HOSPITAL SETTING. SMILES BUT SELDOM SPEAK. PLAN OF CARE FOR THE SHIFT DISCUSSED. NEEDS REINFORCEMENT. DENIES PAIN 0/10 BY SHAKING HIS HEAD WHEN ASKED IF HE FEELS ANY PAIN.
--- NOTE | 2017-04-20 20:00 | NUR ---
Patient's Plan of Care was discussed and reviewed with SLIP COVER ESTIMATOR: LORENA BARBER
--- NOTE | 2017-04-20 21:14 | NUR ---
DUE PO MEDICATIONS FOR THE NIGHT GIVEN WITH APPLE SAUCE, COOPERATIVE.
--- NOTE | 2017-04-20 22:00 | NUR ---
STILL AMBULATING AROUND THE ROOM AND TOUCHING OR GETTING THINGS THAT HE SEES. REORIENTED TO HOSPITAL SETTING.
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
--- NOTE | 2017-04-20 22:35 | NUR ---
ASSISTED TO WALKED TO THE BED AND ENCOURAGED TO LAY IN BED, LOTION APPLIED ON BOTH BLE AND ELEVATED IN BED. MADE COMFORTABLE WITH WARM BLANKETS AND FALL ASLEEP.
--- NOTE | 2017-04-20 23:30 | NUR ---
WOKE UP, WENT OUT OF BED AND FIX HIS BED. WENT BACK TO BED AND SLEEP AGAIN.
[2017-04-21] VITALS: BP 144/76
--- NOTE | 2017-04-21 00:50 | NUR ---
WOKE UP AND WENT OUT OF BED, ASSISTED TO WALK TO BR, EYES CLOSED WHILE WALKING. DID NOT VOID JUST CLOSED THE BR DOOR. ASSISTED BACK TO BED AND WENT BACK TO SLEEP.
--- NOTE | 2017-04-21 03:10 | NUR ---
GET OUT OF BED, ASSISTED TO BR TO VOID, STILL DROWSY. INSTRUCTED TO GET CLOSE TO THE TOILET BOWL BUT UNABLE TO REMOVE DIAPER, VOIDED ON THE FLOOR.. ASSISTED BACK TO BED, RESIST CLEANING WITH WIPES BUT ABLE TO DO IT WITH HELP OF TWO SURVEILLANCE TECHNICIAN. MADE COMFORTABLE IN BED AND WENT BACK TO SLEEP.
--- NOTE | 2017-04-21 05:30 | NUR ---
WOKE UP AGAIN AND GET OUT OF BED. ASSISTED TO BR. BUT VOIDED ON THE FLOOR. HAD A LARGE LOOSE BM. CLEANSED AND MADE COMFORTABLE IN BED, WENT BACK TO SLEEP.
[2017-04-21] MEDS: QUEtiapine FUMARATE 25 MG TAB PO SCH (06:36)
--- NOTE | 2017-04-21 07:01 | NUR ---
CONDITION REMAIN STABLE. SAFETY MAINTAINED DURING SHIFT. WILL ENDORSE TO AM NURSE FOR CONTINUITY OF CARE.
--- NOTE | 2017-04-21 07:15 | NUR ---
ENDORSED TO DAVID VELAZQUEZ FOR CONTINUITY OF CARE.
--- NOTE | 2017-04-21 07:15 | NUR ---
RECEIVED PATIENT REPORT. PATIENT ASLEEP BUT AROUSABLE. NO S/S OF DISTRESS. FALL PRECAUTIONS IN PLACE. WILL CONTINUE TO MONITOR
[2017-04-21 08:00] VITALS: BP 151/77
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
--- NOTE | 2017-04-21 10:30 | NUR ---
NOTIFIED DR LINARES ABOUT THE SWELLING IN THE PATIENT'S BLE
[2017-04-21] MEDS: MEMANTINE 10 MG TAB PO SCH (10:37)
[2017-04-21] MEDS: LABETALOL 100 MG TAB PO SCH ×2 (10:37→20:55)
[2017-04-21] MEDS: amLODIPine 5 MG TAB PO SCH (10:38)
[2017-04-21] MEDS: HALOPERIDOL 1 MG TAB PO SCH ×2 (10:38→20:55)
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
--- NOTE | 2017-04-21 15:00 | NUR ---
PATIENT WALKING AROUND THE UNIT WITH THE REGISTRATION REP. NO S/S OF DISTRESS
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
[2017-04-21 16:00] VITALS: BP 133/86
--- NOTE | 2017-04-21 16:02 | NUR ---
[place] APS/NUCLEAR MEDICINE OFFICER Ketty Works at call me back to ask for patient's phone number. I provided for her an I ended the call.
--- NOTE | 2017-04-21 19:20 | NUR ---
PATIENT REPORT GIVEN AT BEDSIDE. PATIENT ENDORSED IN STABLE CONDITION
--- NOTE | 2017-04-21 19:21 | NUR ---
RECD. WANDERING AROUND THE HALLWAY, A/OX1. RESPIRATION EVEN AND UNLABORED. ASSISTED BACK TO ROOM, KEEP ON TOUCHING EVERYTHING AROUND. REORIENTED TO HOSPITAL SETTING. NOTED BLE ERYTHEMA AND +2-3 PITTING EDEMA, WILL ELEVATE BLE WHEN PATIENT GOES TO BED. PLAN OF CARE DISCUSSED WITH PATIENT. NEEDS REINFORCEMENT. DENIES PAIN 0/10.
--- NOTE | 2017-04-21 21:00 | NUR ---
Patient's Plan of Care was discussed and reviewed with ADMITTING OFFICE ESCORT: LOREAN BARBER
--- NOTE | 2017-04-21 21:00 | NUR ---
DUE PO MEDICATIONS GIVEN WITH APPLE SAUCE.
--- NOTE | 2017-04-21 23:00 | NUR ---
CLEANSED AND PUT TO BED ASSISTED BY TWO STRAW HAT PLUNGER OPERATOR.
[2017-04-22] VITALS: BP 146/78
--- NOTE | 2017-04-22 01:00 | NUR ---
AWAKE STANDING BESIDE BED, TAKING OFF HIS GOWN. ASSISTED BACK TO BED, WENT BACK TO SLEEP.
--- NOTE | 2017-04-22 03:00 | NUR ---
WOKE UP, GET OOB. CLEANSED BY TWO DRY PRESS OPERATOR HELPER AND ASSISTED BACK TO BED. GOES BACK TO SLEEP.
--- NOTE | 2017-04-22 05:00 | NUR ---
GET UP AND WANDERS AROUND THE ROOM, ASSISTED BACK TO BED AND WENT BACK TO SLEEP.
[2017-04-22] MEDS: QUEtiapine FUMARATE 25 MG TAB PO SCH ×2 (06:30→07:36)
--- NOTE | 2017-04-22 07:05 | NUR ---
STILL SLEEPING COMFORTABLY, SNORING IN BED. CONDITION REMAIN STABLE WILL ENDORSE TO AM NURSE FOR CONTINUITY OF CARE.
--- NOTE | 2017-04-22 07:05 | NUR ---
RECEIVED PATIENT REPORT FROM NIGHTSHIFT NURSE AT BEDSIDE. PATIENT IS AWAKE AT THIS TIME. PATIENT RESPONDS TO NAME ONLY. PATIENT IS WANDERING AROUND HIS ROOM. BREATHING IS WITHIN NORMAL LIMITS. PATIENT HAS BILATERAL EDEMA OF LOWER EXTREMITIES. ENCOURAGED PATIENT TO SIT DOWN ON HIS CHAIR. PATIENT REFUSED. WILL CONTINUE TO MONITOR PATIENT.
[2017-04-22 08:00] VITALS: BP 104/74
--- NOTE | 2017-04-22 08:38 | NUR ---
PATIENT ABLE TO TAKE ALL MEDICATIONS WITH APPLE SAUCE. ENCOURAGED PATIENT TO REST IN THE CHAIR BUT PATIENT REFUSED. PATIENT'S BREATHING IS WITHIN NORMAL LIMITS. NO SIGNS OF PAIN AT THIS TIME. WILL CONTINUE TO MONITOR PATIENT.
[2017-04-22 09:38] VITALS: BP 139/63
[2017-04-22] MEDS: HALOPERIDOL 1 MG TAB PO SCH ×2 (09:38→20:41)
[2017-04-22] MEDS: LABETALOL 100 MG TAB PO SCH ×2 (09:38→20:41)
[2017-04-22] MEDS: MEMANTINE 10 MG TAB PO SCH (09:38)
[2017-04-22] MEDS: amLODIPine 5 MG TAB PO SCH (09:39)
[2017-04-22] MEDS: FUROSEMIDE 40 MG TAB PO SCH (09:39)
[2017-04-22] MEDS ORDERED: risperiDONE 1 MG TAB PO SCH (12:30)
--- NOTE | 2017-04-22 12:30 | NUR ---
PATIENT CURRENTLY WALKING AROUND THE NURSING STATION. PATIENT IS ABLE TO AMBULATE SAFELY AT THIS TIME. NO SIGNS OF PAIN OR RESPIRATORY DISTRESS. WILL CONTINUE TO MONITOR PATIENT.
[2017-04-22] MEDS: HALOPERIDOL IM 5 MG/ML VIAL IM PRN (12:57)
--- NOTE | 2017-04-22 14:06 | NUR ---
PATIENT CURRENTLY IN ROOM WALKING AROUND. PATIENT SHOWS NO SIGNS OF RESPIRATORY DISTRESS OR RESPIRATORY DEPRESSION. PATIENT FLACC SCORE IS 0. WILL CONTINUE TO MONITOR PATIENT.
--- NOTE | 2017-04-22 14:36 | NUR ---
04/22/17 RD FOLLOW UP COMPLETED PLEASE REFER TO NUTRITION PROGRESS NOTE UNDER CARE ACTIVITY FOR ESTIMATED NUTRITION NEEDS. RD RECOMMENDATIONS: 1. CONTINUE REGULAR DIET TOLERATED -PATIENT WITH GOOD TOLERANCE TO DIET AND IS MEETING >97% OF ESTIMATED KCAL AND PROTEIN NEEDS 2. RD WILL F/U 5-7 DAYS; LOW RISK. OCTAVIO BENDER RD
[2017-04-22 16:00] VITALS: BP 110/82
--- NOTE | 2017-04-22 16:30 | NUR ---
PATIENT RESTING IN BED AT THIS TIME. NO SIGNS OF PAIN. PATIENT SHOWS NO SIGNS OF RESPIRATORY DISTRESS OR RESPIRATORY DEPRESSION. WILL CONTINUE TO MONITOR PATIENT.
--- NOTE | 2017-04-22 17:50 | NUR ---
PATIENT IS WANDERING AROUND HIS ROOM AT THIS TIME. NO SIGNS OF PAIN AND NO SIGNS OF RESPIRATORY DISTRESS OR RESPIRATORY DEPRESSION. WILL CONTINUE TO MONITOR PATIENT.
--- NOTE | 2017-04-22 19:20 | NUR ---
RECD. AMBULATING IN THE HALLWAY, A/OX1. RESPIRATION EVEN AND UNLABORED. NO IV LINE. SELDOM SPEAKS, OCCASIONALLY FOLLOW COMMANDS TO GO BACK TO ROOM. NO AGITATION NOTED AT THIS TIME. REORIENTED TO HOSPITAL SETTING. NO APPEARANCE OF PAIN NOTED 0/10.
--- NOTE | 2017-04-22 19:22 | NUR ---
GAVE REPORT TO NIGHTSHIFT NURSE AT BEDSIDE. PATIENT IS IN STABLE CONDITION.
--- NOTE | 2017-04-22 19:45 | NUR ---
Patient's Plan of Care was discussed and reviewed with RAZOR GRINDER: SUNIL
[2017-04-22 20:00] VITALS: BP 159/94
--- NOTE | 2017-04-22 20:00 | NUR ---
ASSISTED BACK TO HIS ROOM, REORIENTED TO ENVIRONMENT. STILL KEEP ON TOUCHING AND MANIPULATING OBJECTS INSIDE ROOM.
[2017-04-22] MEDS: risperiDONE 1 MG TAB PO SCH (20:41)
--- NOTE | 2017-04-22 20:41 | NUR ---
DUE MEDICATIONS GIVEN WITH APPLE SAUCE, COOPERATIVE.
--- NOTE | 2017-04-22 22:20 | NUR ---
CLEANSED AND ASSISTED TO BED WITH HELP OF CLERICAL AIDE TEACHER, COOPERATIVE. FALL ASLEEP AFTER 5 MINUTES.
--- NOTE | 2017-04-22 23:00 | NUR ---
SLEEPING COMFORTABLY IN BED.
[2017-04-23] VITALS: BP 102/58
--- NOTE | 2017-04-23 02:00 | NUR ---
OUT OF BED AND VOIDED ON THE FLOOR, CLEANSED AND PUT BACK TO BED BUT REFUSED TO GO BACK TO SLEEP.
--- NOTE | 2017-04-23 05:30 | NUR ---
ASSISTED BACK TO BED, WENT BACK TO SLEEP.
[2017-04-23] MEDS: QUEtiapine FUMARATE 25 MG TAB PO SCH (06:22)
--- NOTE | 2017-04-23 07:07 | NUR ---
CONDITION REMAIN STABLE. SLEEPING COMFORTABLY IN BED. ENDORSED TO DAVID MORRIS FOR CONTINUITY OF CARE.
--- NOTE | 2017-04-23 07:07 | NUR ---
RECEIVED PATIENT REPORT FROM NIGHTSHIFT NURSE AT BEDSIDE. PATIENT IS SLEEPING IN BED. RESPIRATIONS ARE WITHIN NORMAL LIMITS. FLACC SCORE IS 0 AT THIS TIME. PATIENTS AT THE LOWEST SETTING RIGHT NOW. APPROPRIATE SIGNS POSTED OUTSIDE OF PATIENTS ROOM. WILL CONTINUE TO MONITOR PATIENT.
[2017-04-23 08:00] VITALS: BP 151/75
--- NOTE | 2017-04-23 08:15 | NUR ---
PATIENT RESTING AT THIS TIME. NO SIGNS OF PAIN OR NO SIGNS OF RESPIRATORY DISTRESS. WILL CONTINUE TO MONITOR PATIENT.
[2017-04-23] MEDS: LABETALOL 100 MG TAB PO SCH ×2 (09:00→20:40)
[2017-04-23] MEDS: MEMANTINE 10 MG TAB PO SCH (10:15)
[2017-04-23] MEDS: amLODIPine 5 MG TAB PO SCH (10:15)
[2017-04-23] MEDS: HALOPERIDOL 1 MG TAB PO SCH ×2 (10:15→20:41)
--- NOTE | 2017-04-23 10:15 | NUR ---
ABLE TO GIVE PATIENT HIS MEDICATIONS. PATIENT TOLERATED WELL. PATIENT RESTING IN BED AT THIS TIME. NO SIGNS OF RESPIRATION DEPRESSION OR RESPIRATORY DISTRESS. FLACC SCORE IS 0 AT THIS TIME. WILL CONTINUE TO MONITOR PATIENT.
[2017-04-23] MEDS: FUROSEMIDE 40 MG TAB PO SCH (10:16)
[2017-04-23] MEDS: risperiDONE 1 MG TAB PO SCH ×2 (10:16→20:40)
--- NOTE | 2017-04-23 13:20 | NUR ---
PATIENT SITTING IN BED AT THIS TIME. PATIENT DOES NOT SHOW ANY SIGNS OF RESPIRATORY DISTRESS OR RESPIRATORY DEPRESSION. PATIENT RESPONDS TO NAME. WILL CONTINUE TO MONITOR PATIENT.
--- NOTE | 2017-04-23 14:32 | NUR ---
CM NOTE NO REVIEW FAXED PER INSURANCE REQUEST.
[2017-04-23 16:00] VITALS: BP 134/73
--- NOTE | 2017-04-23 16:45 | NUR ---
CLEANSED PATIENT WITH BODY WIPES. APPLIED NEW GOWN AND PUT ON A NEW DIAPER FOR PATIENT. WILL CONTINUE TO MONITOR PATIENT.
--- NOTE | 2017-04-23 17:37 | NUR ---
PATIENT SITTING IN BED. FLACC SCORE IS 0 AT THIS TIME. PATIENT BREATHING WITHIN NORMAL LIMITS. WILL CONTINUE TO MONITOR PATIENT.
--- NOTE | 2017-04-23 19:27 | NUR ---
GAVE REPORT TO NIGHTSHIFT NURSE AT BEDSIDE. PATIENT IS IN STABLE CONDITION.
--- NOTE | 2017-04-23 19:28 | NUR ---
RECEIVED REPORT FROM DAY SHIFT RN, PT IS A/OX1, ON ROOM AIR. NO IV ACCESS. PT AMBULATES WITH STEADY GAIT, SKIN IS INTACT, BUT THERE IS +2 PITTING EDEMA AND ERYTHEMA TO LOWER EXTREMITIES, BILATERALLY. UPDATED BOARD. VITAL SIGNS WITHIN NORMAL LIMITS. PT IN STABLE CONDITION, NO SIGNS OF DISTRESS NOTED. BED IN LOWEST POSITION, CALL LIGHT WITHIN REACH. WILL CONTINUE TO MONITOR.
--- NOTE | 2017-04-23 23:22 | NUR ---
RECEIVED REPORT FROM DAY SHIFT RN, PT IS A/XAVIER1, ON ROOM AIR. NO IV ACCESS. PT AMBULATES WITH STEADY GAIT, SKIN IS INTACT, BUT THERE IS +2 PITTING EDEMA AND ERYTHEMA TO LOWER EXTREMITIES, BILATERALLY. UPDATED BOARD. VITAL SIGNS WITHIN NORMAL LIMITS. PT IN STABLE CONDITION, NO SIGNS OF DISTRESS NOTED. BED IN LOWEST POSITION, CALL LIGHT WITHIN REACH. WILL CONTINUE TO MONITOR. Addendum: 04/23/17 at 7254 by Mary Griffin RN DUPLICATE/WRONG, PLEASE DISREGARD.
[2017-04-24] VITALS: BP 111/74
--- NOTE | 2017-04-24 00:25 | NUR ---
VITAL SIGNS WITHIN NORMAL LIMITS. PT IN STABLE CONDITION, NO SIGNS OF DISTRESS NOTED. BED IN LOWEST POSITION, CALL LIGHT WITHIN REACH. WILL CONTINUE TO MONITOR.
--- NOTE | 2017-04-24 02:35 | NUR ---
PT IN STABLE CONDITION, NO SIGNS OF DISTRESS NOTED. BED IN LOWEST POSITION, CALL LIGHT WITHIN REACH. WILL CONTINUE TO MONITOR.
--- NOTE | 2017-04-24 04:35 | NUR ---
PT IN STABLE CONDITION, NO SIGNS OF DISTRESS NOTED. BED IN LOWEST POSITION, CALL LIGHT WITHIN REACH. WILL CONTINUE TO MONITOR.
[2017-04-24] MEDS: QUEtiapine FUMARATE 25 MG TAB PO SCH ×3 (05:46→21:25)
--- NOTE | 2017-04-24 05:47 | NUR ---
ADMINISTERED SCHEDULED MEDICATION, PT TOLERATED WELL.
--- NOTE | 2017-04-24 07:14 | NUR ---
ENDORSED PT IN STABLE CONDITION TO DAY SHIFT RN FOR CONTINUITY OF CARE.
--- NOTE | 2017-04-24 07:15 | NUR ---
RECEIVED REPORT FROM BRAID FOLDER RN AT BEDSIDE FOR CONTINUITY OF CARE, PT IS A/OX1, ON ROOM AIR. NO IV ACCESS. PT AMBULATES WITH STEADY GAIT, SKIN IS INTACT, BUT THERE IS +3 PITTING EDEMA AND ERYTHEMA TO LOWER EXTREMITIES, BILATERALLY. UPDATED BOARD. PT IN STABLE CONDITION, NO SIGNS OF DISTRESS NOTED. FLACC-0. SAFETY PRECAUTION IN PLACE, BED IN LOWEST POSITION, CALL LIGHT WITHIN REACH. WILL CONTINUE TO MONITOR PATIENT.
[2017-04-24 08:00] VITALS: BP 164/91
[2017-04-24] MEDS: HALOPERIDOL 1 MG TAB PO SCH (09:24)
[2017-04-24] MEDS: FUROSEMIDE 40 MG TAB PO SCH (09:24)
[2017-04-24] MEDS: MEMANTINE 10 MG TAB PO SCH (09:24)
[2017-04-24] MEDS: amLODIPine 5 MG TAB PO SCH (09:25)
[2017-04-24] MEDS: risperiDONE 1 MG TAB PO SCH ×2 (09:25→21:25)
[2017-04-24] MEDS: LABETALOL 100 MG TAB PO SCH ×2 (09:25→21:25)
--- NOTE | 2017-04-24 09:25 | NUR ---
ORDERED MEDICATIONS ADMINISTERED. PATIENT TOLERATED THEM WELL. PT IN STABLE CONDITION, NO SIGNS OF DISTRESS NOTED. FLACC-0. SAFETY PRECAUTION IN PLACE, BED IN LOWEST POSITION, CALL LIGHT WITHIN REACH. WILL CONTINUE TO MONITOR PATIENT.
--- NOTE | 2017-04-24 11:20 | NUR ---
DR LINARES IN TO SEE THE PATIENT. UPDATED HER WITH PATIENT'S CURRENT CONDITION AND STATUS DURING THE NIGHT. PATIENT CHANGED AND CLEANED. PATIENT NOW SITTING BY THE SIDE OF THE BED, FLACC-0, NO SIGNS OF DISTRESS NOTED. SAFETY PRECAUTION IN PLACE, CALL LIGHT WITHIN REACH, WILL CONTINUE TO MONITOR PATIENT.
--- NOTE | 2017-04-24 12:35 | NUR ---
PATIENT CURRENTLY STANDING BY THE BED EATING HIS LUNCH. NO SIGNS OF DISTRESS OR SOB NOTED. FLACC-0. SAFETY PRECAUTION IN PLACE, CALL LIGHT WITHIN REACH. WILL CONTINUE TO MONITOR PATIENT.
--- NOTE | 2017-04-24 12:54 | NUR ---
STILL PENDING MEDICAL.
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
[2017-04-24 16:00] VITALS: BP 149/89
--- NOTE | 2017-04-24 16:15 | NUR ---
PATIENT AMBULATING AROUND MED SURG FLOOR WITH [facility]. NO SIGNS OF DISTRESS OR SOB NOTED. FLACC-0. WILL CONTINUE TO MONITOR PATIENT.
--- NOTE | 2017-04-24 19:23 | NUR ---
PATIENT REPORT GIVEN TO PLASTICS PATTERNMAKER NURSE AT BEDSIDE FOR CONTINUITY OF CARE. PATIENT IN STABLE CONDITION.
--- NOTE | 2017-04-24 19:24 | NUR ---
RECEIVED REPORT FROM DAY SHIFT RN, PT IS A/OX1, ON ROOM AIR. NO IV ACCESS. PT AMBULATES WITH STEADY GAIT, SKIN IS INTACT, BUT THERE IS +3 PITTING EDEMA AND ERYTHEMA TO LOWER EXTREMITIES, BILATERALLY. UPDATED BOARD. VITAL SIGNS WITHIN NORMAL LIMITS. PT IN STABLE CONDITION, NO SIGNS OF DISTRESS NOTED. BED IN LOWEST POSITION, CALL LIGHT WITHIN REACH. WILL CONTINUE TO MONITOR.
[2017-04-24] MEDS ORDERED: HALOPERIDOL IM 5 MG/ML VIAL IM PRN (20:15)
[2017-04-24] MEDS ORDERED: QUEtiapine FUMARATE 25 MG TAB PO SCH (20:20)
--- NOTE | 2017-04-24 20:30 | NUR ---
ADMINISTERED SCHEDULED MEDICATIONS, PT TOLERATED WELL. ALSO, ADMINISTERED MORPHINE FOR C/O 08/18 FOOT PAIN, AND HUMALOG 6UNIT COVERAGE FOR BLOOD SUGAR LEVEL 253. Addendum: 04/25/17 at 0226 by Mary Griffin RN WRONG NOTE, PLEASE DISREGARD.
--- NOTE | 2017-04-24 21:30 | NUR ---
ADMINISTERED SCHEDULED MEDICATIONS, PT TOLERATED WELL. ALSO, ADMINISTERED MORPHINE FOR C/O 08/18 FOOT PAIN, AND HUMALOG 6UNIT COVERAGE FOR BLOOD SUGAR LEVEL 253. Addendum: 04/25/17 at 0228 by Mary Griffin RN MISTAKE ON NOTE, PLEASE DISREGARD.
--- NOTE | 2017-04-24 21:30 | NUR ---
ADMINISTERED SCHEDULED MEDICATIONS, PT TOLERATED WELL. PT STABLE, WALKING AROUND IN ROOM.
--- NOTE | 2017-04-24 22:35 | NUR ---
PT IN STABLE CONDITION, NO SIGNS OF DISTRESS NOTED. BED IN LOWEST POSITION, CALL LIGHT WITHIN REACH. WILL CONTINUE TO MONITOR.
[2017-04-25] VITALS: BP 159/81
--- NOTE | 2017-04-25 | NUR ---
BP SLIGHTLY ELEVATED, OTHERWISE VITAL SIGNS WITHIN NORMAL LIMITS. PT DOES NOT WANT GOWN ON, AND IS WALKING AROUND IN DIAPER. PT IN STABLE CONDITION, NO SIGNS OF DISTRESS NOTED. BED IN LOWEST POSITION, CALL LIGHT WITHIN REACH. WILL CONTINUE TO MONITOR.
--- NOTE | 2017-04-25 02:32 | NUR ---
PT IN STABLE CONDITION, NO SIGNS OF DISTRESS NOTED. BED IN LOWEST POSITION, CALL LIGHT WITHIN REACH. WILL CONTINUE TO MONITOR.
--- NOTE | 2017-04-25 05:00 | NUR ---
DAVID SEN HELPED ME ADMINISTER MORPHINE FOR PAIN TO PT BECAUSE PT WAS C/O SEVERE PAIN WHEN I HAD NEW ADMISSION. PT TOLERATED WELL, I WILL REASSESS.
[2017-04-25] MEDS: QUEtiapine FUMARATE 25 MG TAB PO SCH ×2 (06:06→20:10)
--- NOTE | 2017-04-25 07:05 | NUR ---
RECEIVED REPORT FROM AGRONOMIST RN AT BEDSIDE FOR CONTINUITY OF CARE, PT IS A/OX1, ON ROOM AIR, CURRENTLY SLEEPING IN BED. NO IV ACCESS. SKIN IS INTACT, BUT THERE IS +3 PITTING EDEMA AND ERYTHEMA TO LOWER EXTREMITIES, BILATERALLY. UPDATED BOARD. PT IN STABLE CONDITION, NO SIGNS OF DISTRESS NOTED. FLACC-0. SAFETY PRECAUTION IN PLACE, BED IN LOWEST POSITION, CALL LIGHT WITHIN REACH. WILL CONTINUE TO MONITOR PATIENT.
--- NOTE | 2017-04-25 07:29 | NUR ---
PT ENDORSED TO DAY SHIFT RN IN STABLE CONDITION FOR CONTINUITY OF CARE.
[2017-04-25 08:00] VITALS: BP 137/70
--- NOTE | 2017-04-25 08:30 | NUR ---
VITAL SIGNS WITHIN NORMAL LIMITS, PATIENT ASLEEP IN BED. NO SIGNS OF DISTRESS OR SOB NOTED. FLACC-0. LAB CAME TO DRAW BLOOD, PATIENT CURRENTLY SLEEPING, ADVISED AGAINST IT. CHARGE NURSE YOBANI MARTINEZ. WILL CALL LAB TO COME DRAW LABS WHEN PATIENT IS AWAKE. SAFETY PRECAUTION IN PLACE, CALL LIGHT WITHIN REACH, WILL CONTINUE TO MONITOR PATIENT.
--- NOTE | 2017-04-25 09:00 | NUR ---
0900 MEDICATIONS NOT ADMINISTERED AT THIS MOMENT. PATIENT IS ASLEEP. NO SIGNS OF DISTRESS OR SOB NOTED. FLACC-0. SAFETY PRECAUTION IN PLACE, CALL LIGHT WITHIN REACH, WILL CONTINUE TO MONITOR PATIENT.
--- NOTE | 2017-04-25 11:30 | NUR ---
PATIENT ASLEEP IN BED. NO SIGNS OF DISTRESS OR SOB NOTED. FLACC-0. SAFETY PRECAUTION IN PLACE, CALL LIGHT WITHIN REACH, WILL CONTINUE TO MONITOR PATIENT.
--- NOTE | 2017-04-25 13:30 | NUR ---
PATIENT AWAKE AND ALERT. PATIENT CHANGED AND CLEANED. PATIENT NOW SITTING BY SIDE OF BED, EATING LUNCH. NO SIGNS OF DISTRESS OR SOB NOTED AT THIS TIME, FLACC-0. SAFETY PRECAUTION IN PLACE, CALL LIGHT WITHIN REACH, WILL CONTINUE TO MONITOR PATIENT. Addendum: 04/25/17 at 1736 by Gualberto Hunt RN LAB WAS CALLED FOR BLOOD DRAWS SINCE PATIENT IS AWAKE. WAS INFORMED THAT NO FLORAL ARRANGER AVAILABLE AT THE MOMENT. SOMEONE WILL COME WHEN ONE BECOMES AVAILABLE.
[2017-04-25] MEDS: FUROSEMIDE 40 MG TAB PO SCH (13:55)
[2017-04-25] MEDS: risperiDONE 1 MG TAB PO SCH ×2 (13:55→20:09)
[2017-04-25] MEDS: LABETALOL 100 MG TAB PO SCH ×2 (13:55→20:09)
--- NOTE | 2017-04-25 13:55 | NUR ---
PATIENT ASLEEP IN BED, NO SIGNS OF DISTRESS OR SOB NOTED, FLACC-0. SAFETY PRECAUTION IN PLACE, CALL LIGHT WITHIN REACH, WILL CONTINUE TO MONITOR PATIENT.
[2017-04-25] MEDS: POTASSIUM CHLORIDE 10 MEQ TABER PO SCH (13:56)
[2017-04-25] MEDS: MEMANTINE 10 MG TAB PO SCH (13:56)
[2017-04-25] MEDS: amLODIPine 5 MG TAB PO SCH (13:57)
--- NOTE | 2017-04-25 14:51 | NUR ---
Social Service Note: I called and spoke with Yaima from [facility] , per Yaima they [facility] a contract with [facility], she will inquire if patient has [facility], I faxed inquiry. I called and spoke with Libby Smyth from [facility] , per Libby they have a contract with [facility], she will inquire if patient has [facility], I faxed inquiry. Per Savanna from [facility] ([facility] , they do not have a contract with [facility].
--- NOTE | 2017-04-25 15:25 | NUR ---
PATIENT ASLEEP IN BED, NO SIGNS OF DISTRESS OR SOB NOTED, FLACC-0. SAFETY PRECAUTION IN PLACE, CALL LIGHT WITHIN REACH, WILL CONTINUE TO MONITOR PATIENT.
--- NOTE | 2017-04-25 15:55 | NUR ---
PATIENT AWAKE, RESTING IN BED, DRANK SOME JUICE, WATER, AND COFFEE . 0900 MEDICATIONS ADMINISTERED WITH CHOCOLATE PUDDING. PATIENT TOLERATED THEM WELL. VITAL SIGNS WITHIN NORMAL LIMITS. NO SIGNS OF DISTRESS OR SOB NOTED. SAFETY PRECAUTION IN PLACE, WILL CONTINUE TO MONITOR PATIENT.
[2017-04-25 16:00] VITALS: BP 143/79
--- NOTE | 2017-04-25 16:35 | NUR ---
PATIENT ASLEEP IN BED, NO SIGNS OF DISTRESS OR SOB NOTED, FLACC-0. SAFETY PRECAUTION IN PLACE, CALL LIGHT WITHIN REACH, WILL CONTINUE TO MONITOR PATIENT.
--- NOTE | 2017-04-25 17:50 | NUR ---
PATIENT AWAKE AND ALERT, PATIENT VOIDED, PATIENT WAS CHANGED AND CLEANED. PATIENT NOW SITTING BY SIDE OF BED EATING DINNER. SAFETY PRECAUTION IN PLACE, BED ON LOWEST SETTING, CALL LIGHT WITHIN REACH, WILL CONTINUE TO MONITOR PATIENT.
--- NOTE | 2017-04-25 19:12 | NUR ---
PATIENT REPORT GIVEN TO TRAILHEAD MAINTENANCE WORKER NURSE AT BEDSIDE FOR CONTINUITY OF CARE. PATIENT IN STABLE CONDITION.
--- NOTE | 2017-04-25 19:15 | NUR ---
RECEIVED PT FROM DAY SHIFT NURSE [place]-RN. PT SITTING IN BED WITH FOOD TRAY IN FRONT OF HIM. PT NOT EATING. AOX1, APHASIC. AMBULATORY, ON ROOM AIR AND NO IV SITE. 3+ PITTING EDEMA/ERYTHEMA BLE. NO S/S OF RESPIRATORY DISTRESS OR DISCOMFORT NOTED AT THIS TIME. SITTER AT BEDSIDE. WILL CONTINUE TO MONITOR.
[2017-04-25 20:00] VITALS: BP 132/70
--- NOTE | 2017-04-25 20:16 | NUR ---
PT TOLERATED MEDICATION WELL WITH APPLE SAUCE. PT IN ROOM WITH SITTER AT BEDSIDE. NO S/S OF RESPIRATORY DISTRESS OR DISCOMFORT NOTED AT THIS TIME. WILL CONTINUE TO MONITOR.
--- NOTE | 2017-04-25 22:02 | NUR ---
PT WALKING ABOUT IN ROOM, FIDGETING WITH GOWN, FOOD AND BED LINEN. NO S/S OF RESPIRATORY DISTRESS OR DISCOMFORT NOTED. WILL CONTINUE TO MONITOR.
--- NOTE | 2017-04-25 23:12 | NUR ---
PT WALKING AROUND ROOM EXPLORING THE BED, BED SIDE TABLE, CALL LIGHT, BATHROOM, AND SINK. NO S/S OF RESPIRATORY DISTRESS OR DISCOMFORT NOTED AT THIS TIME. WILL CONTINUE TO MONITOR.
--- NOTE | 2017-04-26 | NUR ---
PT REFUSED VITAL SIGNS. PT TOOK OFF BLOOD PRESSURE CUFF. WILL CONTINUE TO MONITOR.
--- NOTE | 2017-04-26 00:20 | NUR ---
ASSISTED PT TO BED WITH HELP FROM JOSÉ MIGUEL GUAJARDO. PT RESTING IN BED. BED IN LOWEST POSITION. CALL LIGHT WITHIN REACH. NO S/S OF RESPIRATORY DISTRESS OR DISCOMFORT NOTED AT THIS TIME. WILL CONTINUE TO MONITOR.
--- NOTE | 2017-04-26 01:44 | NUR ---
PT SLEEPING AT THIS TIME. NO S/S OF RESPIRATORY DISTRESS OR DISCOMFORT NOTED AT THIS TIME. BED IN LOWEST POSITION. SITTER OUTSIDE THE DOOR. WILL CONTINUE TO MONITOR.
[2017-04-26] MEDS: QUEtiapine FUMARATE 25 MG TAB PO SCH ×2 (06:50→21:51)
[2017-04-26] MEDS: DOCUSATE SODIUM 100 MG GELCAP PO PRN (06:51)
--- NOTE | 2017-04-26 07:18 | NUR ---
ENDORSED PT CARE TO NURSE REEVES. PT STABLE AT THIS TIME.
--- NOTE | 2017-04-26 07:20 | NUR ---
RECEIVED PT REPORT AT BEDSIDE. PT AWAKE BUT DROWSY. NO S/S OF DISTRESS. PT ON RA. NO SOB. NO COMPLAINTS OF PAIN AT THIS TIME. NO IV LINE IN PLACE. BED LOWERED WITH CALL LIGHT WITHIN REACH. WILL CONTINUE TO MONITOR.
[2017-04-26 08:00] VITALS: BP 117/84
[2017-04-26] MEDS: POTASSIUM CHLORIDE 10 MEQ TABER PO SCH (08:37)
[2017-04-26] MEDS: FUROSEMIDE 40 MG TAB PO SCH (08:49)
[2017-04-26] MEDS: MEMANTINE 10 MG TAB PO SCH (08:51)
[2017-04-26] MEDS: risperiDONE 1 MG TAB PO SCH ×2 (08:59→21:53)
[2017-04-26] MEDS: LABETALOL 100 MG TAB PO SCH ×2 (09:00→21:00)
[2017-04-26] MEDS: amLODIPine 5 MG TAB PO SCH (09:00)
[2017-04-26 10:24] LABS: ANION GAP 11.3 (8-16); CARBON DIOXIDE 29.4 mmol/L (21-32); CREATININE 1.3 mg/dL (0.7-1.3); POTASSIUM 3.7 mmol/L (3.5-5.1)
--- NOTE | 2017-04-26 13:33 | NUR ---
Social Service Note I called and spoke with Libby Smyth from [facility] , per Libby she spoke with a social media job titles from [place], she stated patient does not have VA benefits.
[2017-04-26 16:00] VITALS: BP 130/80
--- NOTE | 2017-04-26 19:18 | NUR ---
PT REPORT GIVEN TO EQUIPMENT VALIDATION SPECIALIST NURSE AT BEDSIDE NO S/S OF DISTRESS.
--- NOTE | 2017-04-26 19:19 | NUR ---
RECD. RESTING IN BED, AWAKE, A/OX1, SELDOM SPEAKS BUT OBEY SOME COMMANDS LIKE TO GET INSIDE, EAT OFFERED FOOD. RESPIRATION EVEN AND UNLABORED. ALWAYS WANTS GO OUT OF ROOM AND WANDER AROUND, KEEP ON TOUCHING ANYTHING INSIDE HIS ROOM. NOTED REDNESS DECREASING PITTING EDEMA ON BLE. REORIENTED TO HOSPITAL SETTING. PLAN OF CARE FOR THE SHIFT DISCUSSED. NEEDS REINFORCEMENT. NO APPEARANCE OF PAIN NOTED 0/10.
--- NOTE | 2017-04-26 20:00 | NUR ---
Patient's Plan of Care was discussed and reviewed with SHEET ROCK INSTALLER: LORENA BARBER
--- NOTE | 2017-04-26 21:53 | NUR ---
DUE NIGHT MEDICATIONS GIVEN WITH APPLE SAUCE.
--- NOTE | 2017-04-26 23:00 | NUR ---
ASSISTED TO SLEEP IN BED, BILATERAL LOWER EXTREMITIES ELEVATED BY RAISING LOWER PART OF BED.
[2017-04-27] VITALS: BP 135/94
--- NOTE | 2017-04-27 | NUR ---
SLEEPING COMFORTABLY IN BED.
--- NOTE | 2017-04-27 03:47 | NUR ---
STILL SLEEPING COMFORTABLY, OCCASIONALLY SNORES.
--- NOTE | 2017-04-27 04:30 | NUR ---
WENT OUT OF THE ROOM AND AMBULATED IN THE HALLWAY, ASSISTED BACK TO BED, CLEANSED, INSTRUCTED TO LAY IN BED, COOPERATIVE, AFTER FEW MINUTES WENT BACK TO SLEEP.
[2017-04-27] MEDS: QUEtiapine FUMARATE 25 MG TAB PO SCH ×2 (06:49→21:22)
--- NOTE | 2017-04-27 06:56 | NUR ---
STILL SLEEPING COMFORTABLY IN BED. CONDITION REMAIN STABLE. WILL ENDORSE TO AM NURSE FOR CONTINUITY OF CARE.
--- NOTE | 2017-04-27 07:10 | NUR ---
RECEIVED PATIENT REPORT AT BEDSIDE. PATIENT ASLEEP IN BED WITH NO S/S OF DISTRESS. PATIENT ON ROOM AIR. NO SOB. FALL PRECAUTIONS IN PLACE. WILL CONTINUE TO MONITOR
--- NOTE | 2017-04-27 07:20 | NUR ---
ENDORSED TO DAVID VELAZQUEZ FOR CONTINUITY OF CARE.
[2017-04-27 08:00] VITALS: BP 120/59
[2017-04-27] MEDS: amLODIPine 5 MG TAB PO SCH (09:00)
[2017-04-27] MEDS: POTASSIUM CHLORIDE 10 MEQ TABER PO SCH (09:00)
[2017-04-27] MEDS: MEMANTINE 10 MG TAB PO SCH (09:00)
[2017-04-27] MEDS: risperiDONE 1 MG TAB PO SCH ×2 (09:00→21:23)
--- NOTE | 2017-04-27 09:00 | NUR ---
SCHEDULED MEDICATIONS NOT ADMINISTERED. PATIENT IS TOO LETHARGIC TO SWALLOW
[2017-04-27 09:39] LABS: ANION GAP 10.4 (8-16); CARBON DIOXIDE 31.3 mmol/L (21-32); CREATININE 1.2 mg/dL (0.7-1.3); POTASSIUM 3.7 mmol/L (3.5-5.1)
--- NOTE | 2017-04-27 10:30 | NUR ---
ATTEMPTED TO FEED PATIENT BREAKFAST BUT PATIENT IS TOO DROWSY. WILL TRY AGAIN LATER
--- NOTE | 2017-04-27 14:30 | NUR ---
MRS. ARTIS BACON, (PT'S )CALLED AND WOULD LIKE TO SPEAK WITH THE COMMERCIAL CONSTRUCTION SUPERINTENDENT ASSIGNED. MRS BACON LEFT HER CONTACT NUMBER ([phone]). JULISSA COMMERCIAL CONSTRUCTION SUPERINTENDENT NOTIFIED.
--- NOTE | 2017-04-27 14:30 | NUR ---
PATIENT ASLEEP IN THE CHAIR. NO S/S OF DISTRESS
--- NOTE | 2017-04-27 14:37 | NUR ---
CM NOTE NO REVIEW FAXED PER INSURANCE'S REQUEST.
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
[2017-04-27 16:00] VITALS: BP 112/82
--- NOTE | 2017-04-27 17:30 | NUR ---
AMBULATED WITH THE PATIENT AROUND THE UNIT. NO S/S OF DISTRESS
--- NOTE | 2017-04-27 18:30 | NUR ---
PATIENT EATING DINNER INDEPENDENTLY. NO S/S OF DISTRESS NOTED
--- NOTE | 2017-04-27 19:55 | NUR ---
RECD. AMBULATING INSIDE ROOM, A/OX1. RESPIRATION EVEN AND UNLABORED. KEEP ON TOUCHING ANY OBJECTS NEAR HIM. OCCASIONALLY HAS HIS MOODS AND SHOWS ANGER BEHAVIOR BUT ABLE TO CONTROL BY COMFORTING WORDS. REORIENTED TO HOSPITAL SETTING. PLAN OF CARE DISCUSSED. UNABLE TO COMPREHEND. NO APPEARANCE OF PAIN NOTED 0/10.
--- NOTE | 2017-04-27 21:02 | NUR ---
Patient's Plan of Care was discussed and reviewed with SENIOR PATROL AGENT: LORENA BARBER
--- NOTE | 2017-04-27 21:23 | NUR ---
REFUSED TO TAKE MEDICATIONS BUT WITH NICE, FRIENDLY PERSUASION AGREED.
--- NOTE | 2017-04-27 23:30 | NUR ---
CLEANSED BY VICE PRESIDENT NETWORK AND PUT ON NEW DIAPER BUT TRIED TO FIGHT BY PUSHING/HITTING NURSES. WHEN CALM DOWN, ASSISTED BACK TO BED TO SLEEP.
[2017-04-28] VITALS: BP 139/82
--- NOTE | 2017-04-28 | NUR ---
SLEEPING COMFORTABLY IN BED.
--- NOTE | 2017-04-28 05:00 | NUR ---
STILL SLEEPING COMFORTABLY IN BED, OCCASIONALLY SNORES.
--- NOTE | 2017-04-28 05:30 | NUR ---
OUT OF BED, VOIDED ON THE FLOOR. CLEANSED AND ASSISTED BACK TO BED WITH HELP OF GRADUATE RECRUITER. WENT BACK TO SLEEP.
[2017-04-28] MEDS: QUEtiapine FUMARATE 25 MG TAB PO SCH ×2 (06:52→21:02)
--- NOTE | 2017-04-28 06:55 | NUR ---
CONDITION REMAIN STABLE. WILL ENDORSE TO AM NURSE FOR CONTINUITY OF CARE.
--- NOTE | 2017-04-28 07:05 | NUR ---
ENDORSED TO HERBIE ROCHA FOR CONTINUITY OF CARE.
--- NOTE | 2017-04-28 07:10 | NUR ---
ASSUMED CONTINUITY OF CARE. NO SIGNS AND SYMPTOMS OF ACUTE DISTRESS NOTICED. INITIAL ASSESSMENT DONE. RE-ORIENTED TO EVENTS AND SURROUNDINGS. NON-COMPLIANT TO SAFETY. KEEP COMFORTABLE ON BED. FALL PRECAUTION APPLIED. CALL LIGHT WITHIN REACH.
[2017-04-28 08:00] VITALS: BP 118/79
--- NOTE | 2017-04-28 08:00 | NUR ---
Patient's Plan of Care was discussed and reviewed with MEDICAL ILLUSTRATOR: AJ
[2017-04-28] MEDS: risperiDONE 1 MG TAB PO SCH ×2 (09:18→21:01)
[2017-04-28] MEDS: MEMANTINE 10 MG TAB PO SCH (09:18)
[2017-04-28] MEDS: amLODIPine 5 MG TAB PO SCH (09:21)
[2017-04-28] MEDS: POTASSIUM CHLORIDE 10 MEQ TABER PO SCH (09:21)
--- NOTE | 2017-04-28 09:30 | NUR ---
PARTIAL BEDBATH PROVIDED TO PT. WITH ASSISTANCE FROM ANTHONY AVILA AND LEELA JAMA. TOLERATED WELL. CALM AND COOPERATIVE.
--- NOTE | 2017-04-28 10:45 | NUR ---
ELECTRONIC INDUCTION HARDENER SOL FROM [employer] CAME AND LOOK FOR ELECTRONIC INDUCTION HARDENER -NORMA. INFORMED CHARGE NURSE KEILA FREITAS. CALLED SOFTWARE SYSTEMS ARCHITECT DIRECTOR -MARIAM AND INFORMED THAT ELECTRONIC INDUCTION HARDENER -KAREN FROM [facility] [facility] [employer] WAS IN [facility] NURSE STATION AT THIS TIME AND WANTED TO TALK TO ELECTRONIC INDUCTION HARDENER -NORMA.
--- NOTE | 2017-04-28 12:30 | NUR ---
REPORT RECEIVED FROM PREVIOUS SHIFT, PT SITTING UP IN CHAIR WITH LUNCH, RESP EVEN UNLABORED, SKIN WARM DRY COLOR WNL, NO IMMEDIATE NEEDS IDENTIFIED, WILL CONTINUE TO MONITOR.
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
--- NOTE | 2017-04-28 14:20 | NUR ---
PT GOING AROUND THE HALLWAY IN WHEELCHAIR WITH BOTTOM SANDER, AWAKE ALERT SMILING IN NAD.
--- NOTE | 2017-04-28 14:26 | NUR ---
STILL AWAITING MEDICAL.
--- NOTE | 2017-04-28 15:45 | NUR ---
PT WALKING AROUND IN HALLWAY WITH STEADY GAIT HOLDING AUTOMATIC CLIPPER'S HAND, WAVING TO STAFF, SMILING, APPEARS IN NAD.
[2017-04-28 16:00] VITALS: BP 127/78
--- NOTE | 2017-04-28 16:49 | NUR ---
PT WALKING AROUND IN ROOM IN [facility], APPEARS COMFORTABLE, NO IMMEDIATE NEEDS IDENTIFIED, WILL CONTINUE TO MONITOR.
--- NOTE | 2017-04-28 18:07 | NUR ---
PT SITTING UP AT SIDE OF BED EATING DINNER.
--- NOTE | 2017-04-28 19:10 | NUR ---
REPORT GIVEN TO CONCEPT ARTIST NURSE, PT SITTING UP IN WHEELCHAIR IN NO ACUTE DISTRESS.
--- NOTE | 2017-04-28 19:10 | NUR ---
RECEIVED PATIENT ROAMING AROUND HIS ROOM. FALL PRECAUTION IMPLEMENTED. SITTER WATCHING PATIENT IN FRONT OF THE DOOR. WILL CONTINUE TO MONITOR.
--- NOTE | 2017-04-28 21:00 | NUR ---
SEEN PATIENT SITTING IN THE SIDE OF THE BED. FALL PRECAUTION IMPLEMENTED. WILL CONTINUE TO MONITOR.
[2017-04-29] VITALS: BP 136/73
--- NOTE | 2017-04-29 01:03 | NUR ---
SEEN PATIENT WALKING AROUND THE ROOM. FALL PRECAUTION IMPLEMENTED. WILL CONTINUE TO MONITOR.
--- NOTE | 2017-04-29 03:18 | NUR ---
SEEN PATIENT LYING IN BED. FALL PRECAUTION IMPLEMENTED. WILL CONTINUE TO MONITOR.
--- NOTE | 2017-04-29 05:08 | NUR ---
SEEN PATIENT LYING ASLEEP IN BED. FALL PRECAUTION IMPLEMENTED. WILL CONTINUE TO MONITOR
[2017-04-29] MEDS: QUEtiapine FUMARATE 25 MG TAB PO SCH ×2 (06:27→20:15)
--- NOTE | 2017-04-29 06:46 | NUR ---
SEEN PATIENT LYING IN BED. FALL PRECAUTION IMPLEMENTED. WILL CONTINUE TO MONITOR.
--- NOTE | 2017-04-29 07:20 | NUR ---
ENDORSED PATIENT TO AM SHIFT NURSE FOR CONTINUITY OF CARE. PATIENT IN STABLE CONDITION.
--- NOTE | 2017-04-29 07:21 | NUR ---
RECEIVED REPORT FROM LIME BURNER NURSE AT BEDSIDE FOR CONTINUITY OF CARE. PATIENT RESTING IN BED WITH EYES CLOSED. NO ACUTE DISTRESS NOTED. WILL CONT TO MONITOR.
[2017-04-29 08:00] VITALS: BP 141/91
--- NOTE | 2017-04-29 08:00 | NUR ---
INITIAL ASSESSMENT PERFORMED. PT ALERT BUT APHASIC. ABLE TO MAKE NEEDS KNOWN WITH SIMPLE ANSWERS ALL NEEDS ANTICIPATED.NO ACUTE DISTRESS NOTED. RESP EVEN AND UNLABORED. LUNG SOUNDS CLEAR. BOWEL SOUNDS ACTIVE X4 QUADS. VSS. DENIES PAIN FLACC 0.DISCUSSED PLAN OF CARE WITH PATIENT. VERBALIZED UNDERSTANDING AND AGREEMENT. FREQUENT VISUAL CHECKS.CALL LIGHT WITHIN REACH. WILL CONT TO MONITOR.
[2017-04-29] MEDS: amLODIPine 5 MG TAB PO SCH (08:41)
[2017-04-29] MEDS: POTASSIUM CHLORIDE 10 MEQ TABER PO SCH (08:41)
[2017-04-29] MEDS: MEMANTINE 10 MG TAB PO SCH (08:41)
[2017-04-29] MEDS: risperiDONE 1 MG TAB PO SCH ×2 (08:42→20:15)
--- NOTE | 2017-04-29 10:00 | NUR ---
PATIENT ALERT WALKING AROUND IN ROOM. NO ACUTE DISTRESS. RESP EVEN AND UNLABORED. FLACC-0. CHANGED PATIENTS BRIEF. GOOD PERICARE PROVIDED. GAVE BED BATH AT THIS TIME. FREQUENT VISUAL CHECKS. WILL CONT TO MONITOR PT.
--- NOTE | 2017-04-29 12:30 | NUR ---
PATIENT IN ROOM HAVING LUNCH. NO ACUTE DISTRESS NOTED. PATIENT AMBULATING IN ROOM. FLACC 0. FREQUENT VISUAL CHECKS. ALL NEEDS ANTICIPATED THEY ARISE. CALL LIGHT WITHIN REACH. WILL CONT TO MONITOR PT.
--- NOTE | 2017-04-29 13:33 | NUR ---
04/29/17 RD FOLLOW UP COMPLETED. PLEASE REFER TO NUTRITION ASSESSMENT UNDER CARE ACTIVITY FOR ESTIMATED NUTRITIONAL NEEDS. 1. CONTINUE REGULAR DIET TOLERATED *PATIENT WITH GOOD TOLERANCE TO DIET AND IS MEETING 100% OF ESTIMATED KCAL AND >100% PROTEIN NEEDS* RD TO FOLLOW-UP IN 5-7 DAYS PATIENT IS LOW RISK. OCTAVIO BENDER, RD
--- NOTE | 2017-04-29 14:30 | NUR ---
PATIENT ASSISTED TO GET INTO BED. PATIENT REFUSED, KEPT GETTING OUT OF BED ONCE ASSISTED INTO BED. NO ACUTE DISTRESS. FLACC 0. WILL CONT TO MONITOR PT.
[2017-04-29 16:00] VITALS: BP 119/69
--- NOTE | 2017-04-29 16:30 | NUR ---
PT IN ROOM ASLEEP EASILY WOKEN. VSS. NO ACUTE DISTRESS. DENIES PAIN FLACC 0. FREQUENT VISUAL CHECKS. WILL CONT TO MONITOR.
--- NOTE | 2017-04-29 18:30 | NUR ---
PATIENT IN ROOM HAVING DINNER. NO ACUTE DISTRESS. PATIENT EATING STANDING UP. ENCOURAGED PT TO SIT DOWN. CONTINUES TO STAND. AFTER SITTING DOWN MOMENTARILY. WILL CONT TO MONITOR PT. PT STABLE.
--- NOTE | 2017-04-29 19:16 | NUR ---
ENDORSED REPORT TO LINOTYPIST NURSE AT BEDSIDE FOR CONTINUITY OF CARE. PATIENT STABLE.
--- NOTE | 2017-04-29 19:20 | NUR ---
RECEIVED PT FROM RAFIQ RN PT ALERT OX1 HX DEMENTIA BLE ERYTHEMA AND EDEMA NOT DITRESS NO;LIBRADO INITIAL ASSESSMENT DONE
[2017-04-29 20:00] VITALS: BP 141/64
--- NOTE | 2017-04-29 21:30 | NUR ---
PT TAKEN ORAL MEDIC WELL AND AMBULATES AROUND HIS ROOM NOT DISTRESS NOTED PT ON CLOSE MONITORING AND CLOSE THE UNIT
[2017-04-30] VITALS: BP 141/64
--- NOTE | 2017-04-30 | NUR ---
PT SLEEPING REMAIN STABLE AT THIS ;TIME ON CLOSE MONITORING
--- NOTE | 2017-04-30 02:43 | NUR ---
REPOSITIONED Q2H NOT DISTRESS NOTED AT THIS TIME
--- NOTE | 2017-04-30 04:00 | NUR ---
SPONGE BATH GIVEN LINEN CHANGED NOT DISTRESS NOTED PT RESTING ONBED
[2017-04-30] MEDS: QUEtiapine FUMARATE 25 MG TAB PO SCH ×2 (06:06→20:59)
--- NOTE | 2017-04-30 06:16 | NUR ---
PT TAKE HIS ORAL MEDIC WITH APPLE SAUCE COOPERATIVE, PT RESTING ON BED REMAIN STABLE PT WILL BE ENDORSED TODAY SHIFT NURSE FOR CONTINUITY OF CARE
--- NOTE | 2017-04-30 07:30 | NUR ---
RECEIVED REPORT FROM PROGRAMMER DEVELOPER NURSE. PATIENT RESTING IN BED WITH EYES CLOSED, AROUSED TO NAME. NO ACUTE DISTRESS NOTED. INITIAL ASSESSMENT DONE. FALL PRECAUTIONS IN PLACE. WILL CONTINUE TO MONITOR.
[2017-04-30 08:00] VITALS: BP 142/69
[2017-04-30] MEDS: risperiDONE 1 MG TAB PO SCH ×2 (09:55→20:59)
[2017-04-30] MEDS: POTASSIUM CHLORIDE 10 MEQ TABER PO SCH (09:55)
[2017-04-30] MEDS: amLODIPine 5 MG TAB PO SCH (09:55)
[2017-04-30] MEDS: MEMANTINE 10 MG TAB PO SCH (09:55)
--- NOTE | 2017-04-30 09:55 | NUR ---
MEDS GIVEN WITH APPLE SAUCE, PT TOLERATED WELL. NO SWALLOWING DIFFICULTY NOTED.
--- NOTE | 2017-04-30 10:30 | NUR ---
PT HAD A SPONGE BATH, GOWN CHANGED. NO S/S OF ACUTE DISTRESS.
--- NOTE | 2017-04-30 15:40 | NUR ---
PT AMB IN THE HALLWAY. COLACE GIVEN PRN DUE TO NO BM DOCUMENTED FOR AT LEAST 4 DAY.
[2017-04-30] MEDS: DOCUSATE SODIUM 100 MG GELCAP PO PRN (15:42)
[2017-04-30 16:00] VITALS: BP 112/74
--- NOTE | 2017-04-30 18:00 | NUR ---
PT EATING DINNER IN HIS ROOM, NO S/S OF ACUTE DISTRESS.
--- NOTE | 2017-04-30 19:30 | NUR ---
ENDORSED PT TO FILTER MACHINE OPERATOR RN. PT IS IN STABLE CONDITION.
--- NOTE | 2017-04-30 19:33 | NUR ---
RECEIVED PT FROM DAY SHIFT NURSE SERGIO-RN. PT AOX4, WALKING AROUND IN ROOM. ON ROOM AIR, NO IV PRESENT. BLE ERYTHEMA AND EDEMA +4. 1:1 SITTER OUTSIDE ROOM DOOR FOR OBSERVATION AND PT SAFETY. NO S/S OF RESPIRATORY DISTRESS OR DISCOMFORT NOTED AT THIS TIME. WILL CONTINUE TO MONITOR.
--- NOTE | 2017-04-30 21:00 | NUR ---
PT TOLERATED MEDICATION WELL WITH APPLE SAUCE. PT HAD A BM. JOSÉ MIGUEL ANDREA AND I ASSISTED PT WITH KATI CARE AND CHANGE OF CLOTHING. WILL CONTINUE TO MONITOR.
--- NOTE | 2017-04-30 23:00 | NUR ---
PT WALKING AROUND BEDROOM. NO S/S OF RESPIRATORY DISTRESS OR DISCOMFORT NOTED AT THIS TIME. PT REFUSES TO GO TO BED. WILL CONTINUE TO MONITOR.
--- NOTE | 2017-04-30 23:30 | NUR ---
JOSÉ MIGUEL ANDREA IS AMBULATING PT DOWN THE HALLWAY. PT TOLERATED WALKING AROUND UNIT WELL. WILL CONTINUE TO MONITOR.
[2017-05-01] VITALS: BP 142/90
--- NOTE | 2017-05-01 02:00 | NUR ---
PT SLEEPING IN BED AT THIS TIME. NO S/S OF RESPIRATORY DISTRESS OR DISCOMFORT NOTED AT THIS TIME. BED IN LOWEST POSITION. WILL CONTINUE TO MONITOR.
--- NOTE | 2017-05-01 04:00 | NUR ---
PT SLEEPING AT THIS TIME. NO S/S OF RESPIRATORY DISTRESS OR DISCOMFORT NOTED AT THIS TIME. BED IN LOWEST POSITION. WILL CONTINUE TO MONITOR.
[2017-05-01] MEDS: QUEtiapine FUMARATE 25 MG TAB PO SCH ×2 (06:49→22:01)
--- NOTE | 2017-05-01 07:30 | NUR ---
RECEIVED REPORT FROM STAFF RESEARCH ASSOCIATE NURSE. PATIENT SITTING AT THE EDGE OF THE BED WITH EYES CLOSED, AROUSED TO NAME. NO ACUTE DISTRESS NOTED. INITIAL ASSESSMENT DONE. FALL PRECAUTIONS IN PLACE. WILL CONTINUE TO MONITOR.
--- NOTE | 2017-05-01 07:42 | NUR ---
ENDORSED PT TO DAY SHIFT NURSE ARIE IN STABLE CONDITION FOR CONTINUITY OF CARE.
[2017-05-01 08:00] VITALS: BP 132/74
[2017-05-01] MEDS: risperiDONE 1 MG TAB PO SCH ×2 (09:31→22:02)
[2017-05-01] MEDS: amLODIPine 5 MG TAB PO SCH (09:31)
[2017-05-01] MEDS: MEMANTINE 10 MG TAB PO SCH (09:32)
[2017-05-01] MEDS: POTASSIUM CHLORIDE 10 MEQ TABER PO SCH (09:32)
--- NOTE | 2017-05-01 10:30 | NUR ---
PT HAD ONE BM. CLEANED PT. PT HAD A SPONGE BATH, GOWN CHANGED. NO S/S OF ACUTE DISTRESS.
--- NOTE | 2017-05-01 14:00 | NUR ---
PT AMB IN THE HALLWAY. NO S/S OF ACUTE DISTRESS.
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
[2017-05-01 16:00] VITALS: BP 156/94
--- NOTE | 2017-05-01 16:35 | NUR ---
STILL WAITING FOR MEDICAL .
--- NOTE | 2017-05-01 19:30 | NUR ---
ENDORSED PT TO DORMITORY SUPERVISOR RN. PT IS IN STABLE CONDITION.
--- NOTE | 2017-05-01 19:31 | NUR ---
RECEIVED PT FROM DAY SHIFT NURSE SERGIO-RN. AOX1, APHASIC, ON ROOM AIR WITH NO IV. PT ROAMING AROUND BEDROOM EXPLORING THE SINK, BED, BEDSIDE TABLE AND FLOOR. NO S/S OF RESPIRATORY DISTRESS OR DISCOMFORT NOTED AT THIS TIME. WILL CONTINUE TO MONITOR.
--- NOTE | 2017-05-01 21:00 | NUR ---
PT ROAMING AROUND BEDROOM, EXPLORING EVERY FEATURE. NO S/S OF RESPIRATORY DISTRESS OR DISCOMFORT NOTED AT THIS TIME. WILL CONTINUE TO MONITOR.
--- NOTE | 2017-05-01 22:00 | NUR ---
PT TOLERATED SCHEDULED MEDICATION WELL IN APPLE SAUCE. PT ALSO WAS ABLE TO FEED HIMSELF HIS DINNER. NO S/S OF RESPIRATORY DISTRESS OR DISCOMFORT NOTED AT THIS TIME. WILL CONTINUE TO MONITOR.
--- NOTE | 2017-05-01 23:18 | NUR ---
PT NOTED ROAMING AROUND BEDROOM. NO S/S OF RESPIRATORY DISTRESS NOTED AT THIS TIME. WILL CONTINUE TO MONITOR.
[2017-05-02] VITALS: BP 145/90
--- NOTE | 2017-05-02 01:30 | NUR ---
PT SLEEPING IN BED AT THIS TIME. NO S/S OF RESPIRATORY DISTRESS OR DISCOMFORT NOTED AT THIS TIME. BED IN LOWEST POSITION. CALL LIGHT WITHIN REACH. WILL CONTINUE TO MONITOR.
--- NOTE | 2017-05-02 03:44 | NUR ---
RECD REPORT FROM DAVID BRUSH FOR CONTINUITY OF CARE. PATIENT SLEEPING COMFORTABLY IN BED. RESPIRATION EVEN AND UNLABORED. SAFETY MEASURES ENFORCED. NO APPEARANCE OF PAIN NOTED 0/10
--- NOTE | 2017-05-02 03:45 | NUR ---
COVERING FOR BONDING MACHINE TENDERDelmi CARRILLO.
--- NOTE | 2017-05-02 04:30 | NUR ---
STILL SLEEPING SOUNDLY IN BED.
[2017-05-02] MEDS: QUEtiapine FUMARATE 25 MG TAB PO SCH ×2 (06:58→20:42)
--- NOTE | 2017-05-02 07:00 | NUR ---
AWAKE, OUT OF BED. CONDITION REMAIN STABLE. ENDORSED TO HERBIE ROCHA FOR CONTINUITY OF CARE.
[2017-05-02 08:00] VITALS: BP 115/79
--- NOTE | 2017-05-02 08:05 | NUR ---
SERVED BREAKFAST TRAY. CALM, AND COOPERATIVE. EATING WHILE SEATED ON THE SIDE OF BED.
[2017-05-02] MEDS: POTASSIUM CHLORIDE 10 MEQ TABER PO SCH (08:55)
[2017-05-02] MEDS: MEMANTINE 10 MG TAB PO SCH (08:56)
[2017-05-02] MEDS: amLODIPine 5 MG TAB PO SCH (08:57)
[2017-05-02] MEDS: risperiDONE 1 MG TAB PO SCH ×2 (08:57→20:42)
[2017-05-02 12:00] VITALS: BP 122/83
--- NOTE | 2017-05-02 12:00 | NUR ---
VITALS SIGNS STABLE. NO C/O PAIN. WILL MONITOR.
--- NOTE | 2017-05-02 15:45 | NUR ---
SLEEPING WELL. NO DISCOMFORT NOTICED. KEEP FREE FROM FALL. CALL LIGHT WITHIN REACH.
--- NOTE | 2017-05-02 19:11 | NUR ---
BEDSIDE REPORT GIVEN TO JAYME ASHLEY -DAVID. IN STABLE CONDITION.
--- NOTE | 2017-05-02 19:12 | NUR ---
RECEIVED REPORT FROM DAY SHIFT NURSE. PT WALKING IN THE ROOM. PT IS NON VERBAL. NO S/S OF PAIN OR DISCOMFORT. NO S/S OF RESP DISTRESS. NO IV ACCESS. SAFETY PRECAUTION IN PLACE. CALL LIGHT WITHIN REACH.
--- NOTE | 2017-05-02 20:50 | NUR ---
DUE MEDS GIVEN WITH APPLE SAUCE. PT TOLERATED WELL. NO DISTRESS NOTED.
--- NOTE | 2017-05-02 23:10 | NUR ---
PT EATING SNACK. NO S/S OF PAIN OR DISCOMFORT.
[2017-05-03] VITALS: BP 130/87
--- NOTE | 2017-05-03 02:02 | NUR ---
PT WALKING AROUND THE ROOM. NO DISTRESS NOTED.
--- NOTE | 2017-05-03 05:03 | NUR ---
PT LYING IN BED, SLEEPING. NO S/S OF DISTRESS. FALL PRECAUTION IN PLACE.
[2017-05-03] MEDS: QUEtiapine FUMARATE 25 MG TAB PO SCH ×2 (06:35→20:58)
--- NOTE | 2017-05-03 07:11 | NUR ---
ASSUMED CONTINUITY OF CARE. NO SIGNS AND SYMPTOMS OF ACUTE DISTRESS NOTICED. INITIAL ASSESSMENT DONE. RE-ORIENTED TO EVENTS AND SURROUNDINGS. FALL PRECAUTION APPLIED. CALL LIGHT WITHIN REACH.
--- NOTE | 2017-05-03 07:18 | NUR ---
PT AWAKE, WALKING IN THE ROOM. ENDORSED PT TO DAY SHIFT NURSE. PT IN STABLE CONDITION.
[2017-05-03 08:00] VITALS: BP 147/85
[2017-05-03] MEDS: POTASSIUM CHLORIDE 10 MEQ TABER PO SCH (08:55)
[2017-05-03] MEDS: risperiDONE 1 MG TAB PO SCH ×2 (08:56→20:57)
[2017-05-03] MEDS: MEMANTINE 10 MG TAB PO SCH (08:56)
[2017-05-03] MEDS: amLODIPine 5 MG TAB PO SCH (08:56)
[2017-05-03 12:00] VITALS: BP 123/72
--- NOTE | 2017-05-03 16:25 | NUR ---
AMBULATES ON HALLWAY WITH ASSISTANCE FROM LEANDRO WHITMAN. PT. CALM AND COOPERATIVE. TOLERATED WELL. NO SOB, NOTED.
--- NOTE | 2017-05-03 19:05 | NUR ---
RECEIVED REPORT FROM DAY SHIFT NURSE. PT WALKING AROUND IN THE ROOM. NO DISTRESS NOTED.
--- NOTE | 2017-05-03 19:08 | NUR ---
BEDSIDE REPORT GIVEN TO JAYME ASHLEY -DAVID. IN STABLE CONDITION.
--- NOTE | 2017-05-03 21:12 | NUR ---
DUE MEDS GIVEN WITH APPLESAUCE. PT TOLERATED WELL.
--- NOTE | 2017-05-03 23:00 | NUR ---
PT SITTING CALMLY ON BED. NO S/S OF DISTRESS. SAFETY PRECAUTION IN PLACE.
[2017-05-04] VITALS: BP 148/82
--- NOTE | 2017-05-04 02:17 | NUR ---
PT SLEEPING IN BED, NO S/S OF DISTRESS. SAFETY PRECAUTION IN PLACE.
--- NOTE | 2017-05-04 04:01 | NUR ---
PT VOIDED ON THE FLOOR. CALLED EVS TO CLEAN THE ROOM. ASSISTED PT BACK TO BED. SAFETY PRECAUTION IN PLACE.
[2017-05-04] MEDS: QUEtiapine FUMARATE 25 MG TAB PO SCH ×2 (06:15→20:37)
--- NOTE | 2017-05-04 06:20 | NUR ---
PT AWAKE, SITTING ON THE BED. DUE MEDS GIVEN. PT TOLERATED WELL. NO DISTRESS NOTED.
--- NOTE | 2017-05-04 07:05 | NUR ---
ENDORSED PT TO DAY SHIFT NURSE. PT IN STABLE CONDITION.
[2017-05-04 08:00] VITALS: BP 151/70
--- NOTE | 2017-05-04 08:00 | NUR ---
ENDORSEMENT RECEIVED FROM DELIVERY TABLE OPERATOR NURSE. PATIENT AWAKE, ALERT, WALKING AROUND IN THE ROOM, STEADY GAIT. RESPIRATION EVEN, UNLABOR ON ROOM AIR. SKIN DRY AND WARM. FLACC 0. VS IS STABLE. NO DISTRESS NOTED AT THIS TIME. BED AT LOW POSITION, SIDE RAILS UP. CALL LIGHT WITHIN REACH
[2017-05-04] MEDS: POTASSIUM CHLORIDE 10 MEQ TABER PO SCH (09:23)
[2017-05-04] MEDS: risperiDONE 1 MG TAB PO SCH ×2 (09:24→20:37)
[2017-05-04] MEDS: amLODIPine 5 MG TAB PO SCH (09:24)
[2017-05-04] MEDS: MEMANTINE 10 MG TAB PO SCH (09:24)
--- NOTE | 2017-05-04 12:36 | NUR ---
PATIENT IS SLEEPING COMFORTABLY. RESPIRATION EVEN, UNLABOR ON ROOM AIR. NO DISTRESS NOTED AT THIS TIME. CALL LIGHT WITHIN REACH
--- NOTE | 2017-05-04 15:45 | NUR ---
PATIENT IS AWAKE, ALERT. RESPIRATION EVEN, UNLABOR ON ROOM AIR. FLACC 0. VS IS STABLE. NO DISTRESS NOTED AT THIS TIME. CALL LIGHT WITHIN REACH
[2017-05-04 16:00] VITALS: BP 158/84
--- NOTE | 2017-05-04 18:45 | NUR ---
PATIENT ALERT, AWAKE, WALKING AROUND THE ROOM. RESPIRATION EVEN, UNLABOR ON ROOM AIR. NO DISTRESS NOTED AT THIS TIME
--- NOTE | 2017-05-04 19:03 | NUR ---
ENDORSEMENT GIVEN TO YOUTH DIRECTOR NURSE. PATIENT IS STABLE AT THIS TIME
--- NOTE | 2017-05-04 19:10 | NUR ---
RECEIVED PT IN STABLE CONDITION. AWAKE,ALERT BUT CONFUSED. NO S/S OF ANY DISCOMFORT NOR PAIN NOTED. MED SURG. NO IV ACCESS. FREQUENT CHECK NEEDED FOR PT ALWAYS ROAM AROUND THE UNIT. PT BLE RED AND SWOLLEN. WILL CONTINUE TO MONITOR PT FOR SAFETY .
--- NOTE | 2017-05-04 20:37 | NUR ---
PT TOOK ALL HIS DUE MEDS WITH [employer]CE. TOLERATED WELL.
--- NOTE | 2017-05-04 21:35 | NUR ---
PT STILL AWAKE, INSIDE ROOM . WITH NO S/S OF ANY DISTRESS NOTED.
--- NOTE | 2017-05-04 23:00 | NUR ---
PT STILL AWAKE. WALKING INSIDE ROOM.
[2017-05-05 00:30] VITALS: BP 144/59
--- NOTE | 2017-05-05 01:20 | NUR ---
PT ABLE TO GET INTO THE BED. SLEEPING A THIS TIME. WILL CONTINUE TO MONITOR.
--- NOTE | 2017-05-05 02:30 | NUR ---
PT AWAKE AGAIN. WALKING AROUND THE ROOM .
--- NOTE | 2017-05-05 05:00 | NUR ---
PT SLEEPING WELL ON BED AT THIS TIME. NO S/S OF ANY DISCOMFORT NOTED.
[2017-05-05] MEDS: QUEtiapine FUMARATE 25 MG TAB PO SCH ×2 (06:36→20:53)
--- NOTE | 2017-05-05 07:14 | NUR ---
PT IN BED AT THIS TIME SLEEPING. ENDORSED TO AM NURSE IN STABLE CONDITION .
--- NOTE | 2017-05-05 07:15 | NUR ---
RECEIVED REPORT FROM THE VICTIM ADVOCATE NURSE AT BEDSIDE FOR CONTINUITY OF ARE. PT IS SLEEPING IN BED. NO SIGNS OF DISTRESS. ON ROOM AIR, NO IV ACCESS. BLE EDEMA.WILL CONTINUE TO MONITOR PT.
[2017-05-05 08:00] VITALS: BP 138/70
[2017-05-05] MEDS: MEMANTINE 10 MG TAB PO SCH (09:14)
[2017-05-05] MEDS: amLODIPine 5 MG TAB PO SCH (09:14)
[2017-05-05] MEDS: risperiDONE 1 MG TAB PO SCH ×2 (09:14→20:53)
--- NOTE | 2017-05-05 09:20 | NUR ---
ADMINISTERED MORNING MEDS. CRUSHED IN APPLE SAUCE. HE IS UP AND EATING BREAKFAST.
--- NOTE | 2017-05-05 11:50 | NUR ---
PT AMBULATING BACK AND FORTH IN HIS ROOM. NO SIGNS OF DISTRESS. NO COMPLAINTS. WILL CONTINUE TO MONITOR PT.
--- NOTE | 2017-05-05 14:00 | NUR ---
PT NODDING OFF IN HIS CHAIR. NO SIGNS OF DISTRESS. WILL CONTINUE TO MONITOR PT.
--- NOTE | 2017-05-05 15:59 | NUR ---
PT AMBULATING IN HIS ROOM. NO SIGNS OF DISTRESS. WILL CONTINUE TO MONITOR PT.
[2017-05-05 16:00] VITALS: BP 148/84
--- NOTE | 2017-05-05 18:10 | NUR ---
DR RUSS HERE TO SEE PT. WILL CONTINUE TO MONITOR PT.
--- NOTE | 2017-05-05 19:10 | NUR ---
ENDORSED PT TO THE COUNCILLOR ABORIGINAL LAND COUNCIL NURSE AT BEDSIDE FOR CONTINUITY OF CARE. PT IS AMBULATING. PT IS IN STABLE CONDITION.
--- NOTE | 2017-05-05 19:30 | NUR ---
RECEIVED PT IN STABLE CONDITION FROM AM NURSE. AWAKE,ALERT BUT CONFUSED. MED SURG PT. AMBULATORY. NO S/S OF ANY DISCOMFORT/PAIN NOTED. STILL WITH BLE EDEMA ,REDNESS. NEED FREQUENT CHECK AND MAXIMUM ASSISTANCE. NO HL. WILL CONTINUE TO MONITOR.
--- NOTE | 2017-05-05 20:55 | NUR ---
PT ABLE TO TAKE NIGHT MEDS WITH APPLE SAUCE. TRIED PUTTING PT TO BED BUT REFUSED.JUST WANTS TO WALK AROUND THE ROOM. WILL CONTINUE TO MONITOR.
--- NOTE | 2017-05-06 | NUR ---
ALREADY SLEEPY SITTING ON THE BED, ASSISTED TO GO TO BED BUT HITS NURSE. REORIENTED TO HOSPITAL SETTING.
[2017-05-06 00:30] VITALS: BP 150/63
--- NOTE | 2017-05-06 03:15 | NUR ---
ABLE TO PUT PT IN BED. SLEEPING AT THIS TIME.
--- NOTE | 2017-05-06 03:20 | NUR ---
PT STILL AWAKE. QUIET INSIDE ROOM. NO S/S OF ANY DISCOMFORT NOTED.
[2017-05-06] MEDS: QUEtiapine FUMARATE 25 MG TAB PO SCH ×3 (06:30→21:56)
--- NOTE | 2017-05-06 07:13 | NUR ---
PT SLEEPING WELL AT THIS TIME. ENDORSED PT IN STABLE CONDITION TO AM NURSE.
--- NOTE | 2017-05-06 07:14 | NUR ---
RECEIVED REPORT FROM PRODUCTION CELL LEADER NURSE. PATIENT IS IN STABLE CONDITION. CURRENTLY SLEEPING WITH NO S/S OF DISTRESS. NO IV ACCESS AT THIS TIME. SKIN HAS BLE SCABS AND BLE SWELLING. WILL CONTINUE TO MONITOR PATIENT.
[2017-05-06 08:00] VITALS: BP 105/78
[2017-05-06] MEDS: MEMANTINE 10 MG TAB PO SCH (09:47)
[2017-05-06] MEDS: risperiDONE 1 MG TAB PO SCH ×2 (09:47→21:53)
[2017-05-06] MEDS: amLODIPine 5 MG TAB PO SCH (09:47)
--- NOTE | 2017-05-06 09:48 | NUR ---
MORNING MEDS GIVEN. CRUSHED AND IN CHOCOLATE PUDDING. PATIENT TOLERATED MEDS WELL. BED IN LOW POSITION, CALL LIGHT WITHIN REACH.
--- NOTE | 2017-05-06 12:04 | NUR ---
PT IN BED, RESTING. NO SIGNS OF DISTRESS. SLEEPY TODAY. LUNCH IS HERE. WILL SEE IF HE WANTS TO EAT. WILL CONTINUE TO MONITOR PT.
--- NOTE | 2017-05-06 12:50 | NUR ---
PATIENT IS CURRENTLY SLEEPING WITH NO S/S OF RESPIRATORY DISTRESS ON ROOM AIR. BED IN LOW POSITION. CALL LIGHT WITHIN REACH. WILL CONTINUE TO MONITOR PATIENT.
--- NOTE | 2017-05-06 13:30 | NUR ---
PATIENT CURRENTLY SLEEPING. NO S/SX OF DISTRESS ON ROOM AIR. WILL CONTINUE TO MONITOR THE PATIENT.
--- NOTE | 2017-05-06 14:12 | NUR ---
05/06/17 RD FOLLOW UP COMPLETED. PLEASE REFER TO NUTRITION ASSESSMENT UNDER CARE ACTIVITY FOR ESTIMATED NUTRITIONAL NEEDS. CONTINUE ON REGULAR DIET TOLERATED. *PATIENT WITH GOOD TOLERANCE TO DIET AND IS MEETING >100% OF ESTIMATED KCAL AND >100% PROTEIN NEEDS* RD TO FOLLOW-UP IN 5-7 DAYS PATIENT IS LOW RISK. OCTAVIO BENDER, RD
--- NOTE | 2017-05-06 15:05 | NUR ---
PATIENT CURRENTLY EATING AT BEDSIDE. NO S/SX OF DISTRESS ON ROOM AIR. BED IN LOW POSITION. CALL WITHIN REACH. WILL CONTINUE TO MONITOR.
--- NOTE | 2017-05-06 15:50 | NUR ---
FAXED INQUIRY TO UBALDO DIAZ [phone] PHONE [phone] FAXED INQUIRY TO [facility] [phone] PHONE [phone]
[2017-05-06 16:00] VITALS: BP 123/81
--- NOTE | 2017-05-06 17:49 | NUR ---
PT SITTING QUIETLY ON THE SIDE OF BED, HAND FOLDED, DOZING OFF. DINNER TRAY ON THE SIDE TABLE IN FRONT OF PT. WILL CONTINUE TO MONITOR PT.
--- NOTE | 2017-05-06 19:20 | NUR ---
GAVE REPORT TO BOILER WASHER NURSE. PATIENT ENDORSED IN STABLE CONDITION. NO S/S OF DISTRESS.
--- NOTE | 2017-05-06 19:20 | NUR ---
RECD. AMBULATING INSIDE HIS ROOM, AWAKE, A/OX1, SELDOM SPEAKS. RESPIRATION EVEN AND UNLABORED. NO IV LINE. KEEP ON TOUCHING ANY THING AROUND HIM. REORIENTED TO HOSPITAL SETTING. PLAN OF CARE FOR THE SHIFT DISCUSSED. NEEDS REINFORCEMENT. NO APPEARANCE OF PAIN NOTED, 0/10.
--- NOTE | 2017-05-06 19:30 | NUR ---
DISCUSSED PLAN OF CARE WITH HERBIE CHIRINOS WILL CONTINUE TO MONITOR. Addendum: 05/07/17 at 0002 by Patito Cain RN COVERING FOR HERBIE CARRILLO
--- NOTE | 2017-05-06 20:15 | NUR ---
WALKING WITHOUT GOWN, ONLY DIAPER INSIDE HIS ROOM, REFUSED TO PUT ON GOWN.
--- NOTE | 2017-05-06 21:53 | NUR ---
DUE PO MEDICATIONS GIVEN WITH APPLE SAUCE. CLEANSED AND ASSISTED BACK TO BED TO SLEEP BUT REFUSED.
[2017-05-07] VITALS: BP 128/70
--- NOTE | 2017-05-07 00:45 | NUR ---
SLEEPING COMFORTABLY IN BED.
--- NOTE | 2017-05-07 05:00 | NUR ---
WOKE UP EARLY, AMBULATING IN HIS ROOM, SANDWICH GIVEN.
--- NOTE | 2017-05-07 06:00 | NUR ---
ASSISTED BACK TO BED TO GO BACK TO SLEEP, COOPERATIVE.
[2017-05-07] MEDS: QUEtiapine FUMARATE 25 MG TAB PO SCH ×2 (06:52→20:49)
--- NOTE | 2017-05-07 07:13 | NUR ---
STILL SLEEPING COMFORTABLY ENDORSED TO AM NURSE FOR CONTINUITY OF CARE.
--- NOTE | 2017-05-07 07:30 | NUR ---
RECEIVED REPORT FROM SCIENTIFIC PROGRAMMER ANALYST NURSE. PT IS SLEEPING IN BED. NO S/S OF DISTRESS, BREATHING EVEN AND UNLABORED. NO IV ACCESS AT THIS TIME. SKIN HAS BLE SCABS, REDNESS, AND SWELLING. FALL PRECAUTIONS IN PLACE, WILL CONTINUE TO MONITOR PATIENT.
[2017-05-07 08:00] VITALS: BP 143/78
[2017-05-07] MEDS: MEMANTINE 10 MG TAB PO SCH (10:02)
[2017-05-07] MEDS: amLODIPine 5 MG TAB PO SCH (10:02)
[2017-05-07] MEDS: risperiDONE 1 MG TAB PO SCH ×2 (10:03→20:49)
--- NOTE | 2017-05-07 10:20 | NUR ---
PATIENT IS AWAKE, ALERT. RESPIRATION EVEN, UNLABORED ON ROOM AIR. FLACC 0. VS IS STABLE.
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
[2017-05-07] MEDS ORDERED: PERMETHRIN 5% 60 GM TUBE TP SCH (15:05)
[2017-05-07 16:00] VITALS: BP 135/76
--- NOTE | 2017-05-07 17:00 | NUR ---
DR RUSS PERFORMED SCAPE TEST FOR SCABIES. PIC TAKEN FOR RIGHT AND LEFT ARM AND BUTTOCK.
--- NOTE | 2017-05-07 18:00 | NUR ---
PT STANDING BY THE BEDSIDE TABLE AND EATING DINNER. NO ACUTE DISTRESS NOTED.
--- NOTE | 2017-05-07 18:20 | NUR ---
SPOKE WITH INFECTION DOC, DR LAWRENCE OVER THE PHONE. MADE HIM AWARE OF THE SITUATION OF SUSPECTED SCABIES AND CONSULT ORDER. WILL SEE THE PT GEMA.
--- NOTE | 2017-05-07 19:29 | NUR ---
ENDORSED PT CARE TO DRAFTSPERSON NURSE. PT IN STABLE CONDITION.
--- NOTE | 2017-05-07 19:30 | NUR ---
RECEIVED BEDSIDE REPORT FROM DAY SHIFT NURSE SERGIO RN, PT STABLE, NO DISTRESS NOTED, PT STILL CONFUSED, WALKING AROUND IN HIS ROOM, RESPONDS TO NAME, AND FOLLOWS INSTRUCTION, INITIAL ASSESSMENT DONE, ALL SAFETY PRECAUTION MET, WILL CONTINUE TO MONITOR.
--- NOTE | 2017-05-07 20:49 | NUR ---
DUE MEDICATION GIVEN, PT TOLERATED WELL, NO DISTRESS NOTED, WILL CONTINUE TO MONITOR.
--- NOTE | 2017-05-07 21:35 | NUR ---
DR. LAWRENCE SAW PT REGARDING SUSPICION OF SCABIES.
--- NOTE | 2017-05-07 22:35 | NUR ---
PT AMBULATED TO SHOWER, ATTEMPT TO GIVE PT A SHOWER, PT REFUSED, USED SOAP AND WASH CLOTH TO CLEAN PT, PT REFUSED TO BE CLEAN ON THE KATI AREA, DRIED, PT, WALK PT TO BEDROOM, PT TOLERATED WELL, WENT ON BED AND SLEEP. WILL CONTINUE TO MONITOR.
[2017-05-08] VITALS: BP 134/79
--- NOTE | 2017-05-08 00:01 | NUR ---
CHECKED ON PT, PT SLEEPING, NO DISTRESS NOTED, CALL LIGHT WITHIN REACH, WILL CONTINUE TO MONITOR.
--- NOTE | 2017-05-08 03:14 | NUR ---
PT WALKING AROUND ROOM, NO DISTRESS NOTED, CALL LIGHT WITHIN REACH, WILL CONTINUE TO MONITOR.
[2017-05-08] MEDS: QUEtiapine FUMARATE 25 MG TAB PO SCH ×2 (06:03→21:22)
--- NOTE | 2017-05-08 06:36 | NUR ---
PT SLEEPING ON BED, NO DISTRESS NOTED, CALL LIGHT WITHIN REACH, WILL CONTINUE TO MONITOR.
--- NOTE | 2017-05-08 07:17 | NUR ---
ENDORSED PLAN OF CARE TO DAY SHIFT NURSE SERGIO RN, PT IN STABLE CONDITION, NO DISTRESS NOTED.
--- NOTE | 2017-05-08 07:30 | NUR ---
RECEIVED REPORT FROM HAND HIDE STRETCHER NURSE. PT IS WALKING IN THE ROOM. NO S/S OF DISTRESS, BREATHING EVEN AND UNLABORED. NO IV ACCESS AT THIS TIME. SKIN HAS BLE SCABS, REDNESS, AND SWELLING. FALL PRECAUTIONS IN PLACE, WILL CONTINUE TO MONITOR PATIENT.
[2017-05-08 08:00] VITALS: BP 134/89
[2017-05-08] MEDS: amLODIPine 5 MG TAB PO SCH (09:58)
[2017-05-08] MEDS: MEMANTINE 10 MG TAB PO SCH (09:58)
--- NOTE | 2017-05-08 10:00 | NUR ---
SCHEDULED MEDS GIVEN. PATIENT IS AWAKE, ALERT. RESPIRATION EVEN, UNLABORED ON ROOM AIR. FLACC 0. VS IS STABLE.
[2017-05-08] MEDS: risperiDONE 1 MG TAB PO SCH ×2 (10:36→21:22)
[2017-05-08] MEDS ORDERED: HYDRAGUARD CREAM TP PRN (13:25)
--- NOTE | 2017-05-08 14:05 | NUR ---
PT IS SLEEPING WITH HEAD ON THE BEDSIDE TABLE. PLACED PT BACK TO BED TO SLEEP. NO S/S OF ACUTE DISTRESS.
[2017-05-08 16:00] VITALS: BP 124/79
--- NOTE | 2017-05-08 17:00 | NUR ---
HYDRAGAURD APPLIED TO PERINEAL AREA. HYDROCORTISONE APPLIED TO ARMS. PT IS COOPERATIVE. NO S/S OF ACUTE DISTRESS.
[2017-05-08] MEDS: HYDRAGUARD CREAM TP SCH (17:35)
--- NOTE | 2017-05-08 19:30 | NUR ---
ENDORSED PT TO SHAKER WASHER RN. PT IS IN STABLE CONDITION.
--- NOTE | 2017-05-08 19:31 | NUR ---
RECEIVED BEDSIDE REPORT FROM DAY SHIFT NURSE SERGIO RN, PT STABLE, NO DISTRESS NOTED, PT ON ROOM AIR NO SOB, PT WALKING AROUND ROOM, CONFUSED, INITIAL ASSESSMENT DONE, ALL SAFETY PRECAUTION MET, WILL CONTINUE TO MONITOR.
--- NOTE | 2017-05-08 21:22 | NUR ---
DUE MEDICATION GIVEN, PT TOLERATED WELL, NO DISTRESS NOTED, CALL LIGHT WITHIN REACH, WILL CONTINUE TO MONITOR.
--- NOTE | 2017-05-08 23:34 | NUR ---
CHECKED ON PT, PT WALKING AROUND BEDROOM LED PT TO BED TO SLEEP, PT LAY DOWN ON BED, SLEEPING COMFORTABLE, NO DISTRESS NOTED, CALL LIGHT WITHIN REACH, WILL CONTINUE TO MONITOR.
[2017-05-09] VITALS: BP 131/82
[2017-05-09] MEDS: HYDRAGUARD CREAM TP SCH ×2 (00:25→13:11)
--- NOTE | 2017-05-09 03:08 | NUR ---
PT WOKE UP FROM BED AND START WALKING AROUND THE BEDROOM, NO DISTRESS NOTED, CALL LIGHT WITHIN REACH, WILL CONTINUE TO MONITOR
--- NOTE | 2017-05-09 04:33 | NUR ---
PT WENT TO BED, SLEEPING CALMLY ON BED, NO DISTRESS NOTED, CALL LIGHT WITHIN REACH, WILL CONTINUE TO MONITOR.
[2017-05-09] MEDS: QUEtiapine FUMARATE 25 MG TAB PO SCH ×2 (06:13→20:42)
--- NOTE | 2017-05-09 07:07 | NUR ---
ASSUMED CONTINUITY OF CARE. NO SIGNS AND SYMPTOMS OF ACUTE DISTRESS NOTICED. INITIAL ASSESSMENT DON. RE-ORIENTED TO EVENTS AND SURROUNDINGS. NON-COMPLIANT TO SAFETY. FALL PRECAUTION APPLIED. CALL LIGHT WITHIN REACH.
--- NOTE | 2017-05-09 07:08 | NUR ---
ENDORSED PLAN OF CARE TO DAY SHIFT NURSE AJ STONER, PT STABLE, NO DISTRESS NOTED, CALL LIGHT WITHIN REACH.
--- NOTE | 2017-05-09 07:25 | NUR ---
DR. TOBIAS CAME AND SEEN PT..
[2017-05-09 08:00] VITALS: BP 145/92
--- NOTE | 2017-05-09 08:00 | NUR ---
Patient's Plan of Care was discussed and reviewed with AMMONIA REFRIGERATION TECHNICIAN: AJ ROB LVN
[2017-05-09] MEDS: risperiDONE 1 MG TAB PO SCH ×2 (09:07→20:42)
[2017-05-09] MEDS: MEMANTINE 10 MG TAB PO SCH (09:07)
[2017-05-09] MEDS: amLODIPine 5 MG TAB PO SCH (09:08)
[2017-05-09 12:00] VITALS: BP 119/67
--- NOTE | 2017-05-09 12:00 | NUR ---
VITALS SIGNS STABLE. NO C/O PAIN. WILL MONITOR.
--- NOTE | 2017-05-09 16:10 | NUR ---
SLEEPING IN COMFORTABLE POSITION. NO DIFFICULTY BREATHING NOTED. KEEP FREE FROM FALL. CALL LIGHT WITHIN REACH.
--- NOTE | 2017-05-09 19:05 | NUR ---
BEDSIDE REPORT GIVEN TRUDI TUCKER. IN STABLE CONDITION.
--- NOTE | 2017-05-09 19:10 | NUR ---
RECEIVED REPORT FROM JANICE. AOX1-CONFUSED AND APHASIC. NO IV PRESENT. PT ROAMING IN BEDROOM WITH PLASTIC FOAM CONTAINER IN HAND. NO S/S OF RESPIRATORY DISTRESS OR DISCOMFORT AT THIS TIME. GOWN ON WITH DISPOSABLE UNDERWEAR. WILL CONTINUE TO MONITOR.
--- NOTE | 2017-05-09 20:45 | NUR ---
SCHEDULED MEDICATION GIVEN AND TOLERATED WELL IN APPLE SAUCE. PT ROAMING AROUND BEDROOM. NO S/S OF RESPIRATORY DISTRESS OR DISCOMFORT NOTED AT THIS TIME. WILL CONTINUE TO MONITOR.
--- NOTE | 2017-05-09 21:15 | NUR ---
ADJUSTER PIANO ACTION EMRE AMBULATING PT DOWN THE HALLWAY. PT TOLERATING WALK WELL. WILL CONTINUE TO MONITOR.
--- NOTE | 2017-05-09 23:18 | NUR ---
ASSISTED PT TO BED. PT SLEEPING AT THIS TIME. BED IN LOWEST POSITION. CALL LIGHT WITHIN REACH. 1:1 SITTER OUTSIDE BEDROOM. WILL CONTINUE TO MONITOR.
[2017-05-10] VITALS: BP 135/80
--- NOTE | 2017-05-10 00:15 | NUR ---
PT TOLERATED VITAL SIGNS WELL. IN BED SLEEPING. BED IN LOWEST POSITION. NO S/S OF RESPIRATORY DISTRESS OR DISCOMFORT NOTED AT THIS TIME. WILL CONTINUE TO MONITOR.
[2017-05-10] MEDS: HYDRAGUARD CREAM TP SCH ×2 (01:35→12:53)
--- NOTE | 2017-05-10 02:14 | NUR ---
PT CONTINUES SLEEPING AT THIS TIME. WILL CONTINUE TO MONITOR.
--- NOTE | 2017-05-10 03:25 | NUR ---
PT CONTINUES TO SLEEP AT THIS TIME. WILL CONTINUE TO MONITOR.
--- NOTE | 2017-05-10 04:51 | NUR ---
PT SLEEPING AT THIS TIME. NO S/S OF RESPIRATORY DISTRESS OR DISCOMFORT. BED IN LOWEST POSITION. WILL CONTINUE TO MONITOR.
[2017-05-10] MEDS: QUEtiapine FUMARATE 25 MG TAB PO SCH ×2 (06:03→20:19)
--- NOTE | 2017-05-10 06:42 | NUR ---
SCHEDULED MEDICATION GIVEN WITH APPLE SAUCE. PT AWAKE AND ROAMING AROUND BEDROOM. NO S/S OF RESPIRATORY DISTRESS OR DISCOMFORT NOTED AT THIS TIME. WILL CONTINUE TO MONITOR.
--- NOTE | 2017-05-10 07:01 | NUR ---
ENDORSED PT CARE TO DAY SHIFT NURSE QUITA. PT STABLE AT THIS TIME.
--- NOTE | 2017-05-10 07:50 | NUR ---
DR. TOBIAS CAME, REVIEWED PT. CHART, AND INFORMED OF PT. CONTINUATION OF NORVASC 5 MG PO DAILY.
[2017-05-10 08:00] VITALS: BP 139/83
--- NOTE | 2017-05-10 08:00 | NUR ---
Patient's Plan of Care was discussed and reviewed with BELT GLASS SANDER: AJ
[2017-05-10] MEDS: risperiDONE 1 MG TAB PO SCH ×2 (08:51→20:19)
[2017-05-10] MEDS: MEMANTINE 10 MG TAB PO SCH (08:51)
[2017-05-10] MEDS: amLODIPine 5 MG TAB PO SCH (08:51)
--- NOTE | 2017-05-10 10:50 | NUR ---
BED BATH PROVIDED WITH ASSISTANCE FROM MARIA ANTONIA WHITMAN. CALM AND COOPERATIVE. TOLERATED WELL. SKIN CARE DONE ON PERINEAL AREA WITH INCONTINENT DERMATITIS. KEEP COMFORTABLE ON BED.
[2017-05-10 16:00] VITALS: BP 122/79
--- NOTE | 2017-05-10 19:08 | NUR ---
BEDSIDE REPORT GIVEN TO TRUDI TUCKER. IN STABLE CONDITION.
--- NOTE | 2017-05-10 19:10 | NUR ---
RECEIVED REPORT FROM JANICE. AOX1-CONFUSED AND APHASIC. NO IV PRESENT. PT ROAMING IN BEDROOM. NO S/S OF RESPIRATORY DISTRESS OR DISCOMFORT AT THIS TIME. GOWN ON WITH DISPOSABLE UNDERWEAR. WILL CONTINUE TO MONITOR.
--- NOTE | 2017-05-10 20:20 | NUR ---
SCHEDULED MEDICATIONS GIVEN IN APPLE SAUCE. PT TOLERATED WELL. WILL CONTINUE TO MONITOR.
--- NOTE | 2017-05-10 22:59 | NUR ---
PT WALKING AROUND BEDROOM. NO S/S OF RESPIRATORY DISTRESS OR DISCOMFORT NOTED AT THIS TIME. WILL CONTINUE TO MONITOR.
[2017-05-11] VITALS: BP 138/78
--- NOTE | 2017-05-11 00:47 | NUR ---
PT SLEEPING AT THIS TIME. WILL CONTINUE TO MONITOR
[2017-05-11] MEDS: HYDRAGUARD CREAM TP SCH ×2 (01:09→13:05)
--- NOTE | 2017-05-11 01:21 | NUR ---
ENDORSED PT CARE TO CHARGE NURSE PREM. PT IN STABLE CONDITION.
--- NOTE | 2017-05-11 02:00 | NUR ---
RECEIVED PT FROM TRUDI RN PT SLEEPING ON BED NOT DISTRESS NOTED AT THISTIME INITIAL ASSESSMENT DONE
--- NOTE | 2017-05-11 04:30 | NUR ---
SPONGE BATH FGIVEN, LINEN CHANGED PT AMBULATES INSIDE THE ROOM NOT DISTRESS NOTED AT THIS TIME
[2017-05-11] MEDS: QUEtiapine FUMARATE 25 MG TAB PO SCH ×2 (06:28→20:38)
--- NOTE | 2017-05-11 07:00 | NUR ---
PT AWAKE NOT DISTRESS NOTED AMBULATES INSIDE HIS ROOM PT WILL BE ENDORSED TO DAY SHIF TO CONTINUITY OF CARE
--- NOTE | 2017-05-11 07:05 | NUR ---
RECEIVED REPORT FROM LIQUEFIER DVAID FIELDS. PT IS STANDING NEXT TO HIS BED, INSIDE THE ROOM, PT IS AAOX1, AMBULATES WITH ASSIST, PT HAS NO IV ACCESS, PT HAS BILATERAL LOWER EXTREMITY EDEMA, NO S/S OF RESPIRATORY DISTRESS OR DISCOMFORT NOTED, DISCUSSED PLAN OF CARE WITH PT, PT UNABLE TO COMPREHEND, SAFETY/FALL PRECAUTIONS ARE IN PLACE, CALL LIGHT IS WITHIN REACH, WILL CONTINUE TO MONITOR.
[2017-05-11 08:00] VITALS: BP 131/74
[2017-05-11] MEDS: risperiDONE 1 MG TAB PO SCH ×2 (08:45→20:38)
--- NOTE | 2017-05-11 08:45 | NUR ---
DUE MEDICATIONS GIVEN, PT TOLERATED WELL, PT SITTING AT BEDSIDE, EATING BREAKFAST, CALL LIGHT WITHIN REACH, WILL CONTINUE TO MONITOR.
[2017-05-11] MEDS: MEMANTINE 10 MG TAB PO SCH (08:46)
[2017-05-11] MEDS: amLODIPine 5 MG TAB PO SCH (08:46)
--- NOTE | 2017-05-11 10:35 | NUR ---
PT IS SITTING ON WHEELCHAIR AT THE BEDSIDE, NO S/S OF RESPIRATORY DISTRESS OR DISCOMFORT NOTED.
--- NOTE | 2017-05-11 13:07 | NUR ---
PT IS SITTING ON WHEELCHAIR AT BEDSIDE, EATING LUNCH WITH THE ASSISTANCE OF THE CUB REPORTER ESPERANZA).
[2017-05-11 16:00] VITALS: BP 137/85
--- NOTE | 2017-05-11 16:59 | NUR ---
CHART REVIEWED. STILL WAITING FOR MEDICAL SO WE CAN FIND PLACEMENT.
--- NOTE | 2017-05-11 19:10 | NUR ---
ENDORSED PT TO WOODWORKING CRAFTSMAN NURSE FOR CONTINUITY OF CARE. PT STABLE AT THIS TIME.
--- NOTE | 2017-05-11 19:11 | NUR ---
RECD. AMBULATING INSIDE HIS ROOM, A/OX1, SELDOM SPEAKS. RESPIRATION EVEN AND UNLABORED. STILL EATING SOME FOOD IN HIS DINNER TRAY. REORIENTED TO HOSPITAL SETTING. PLAN OF CARE FOR THE SHIFT DISCUSSED. VERBALIZED UNDERSTANDING. NO APPEARANCE OF PAIN NOTED 0/10.
--- NOTE | 2017-05-11 20:00 | NUR ---
Patient's Plan of Care was discussed and reviewed with CHIEF MARKETING OFFICER: Gifty BARBER
--- NOTE | 2017-05-11 20:38 | NUR ---
DUE NIGHT MEDICATIONS GIVEN WITH APPLE SAUCE.
--- NOTE | 2017-05-11 23:00 | NUR ---
ASSISTED TO GO TO BED AND SLEEP AFTER DIAPER CHANGED BY CHARGE COORDINATOR.
[2017-05-12] VITALS: BP 139/74
--- NOTE | 2017-05-12 | NUR ---
SLEEPING COMFORTABLY IN BED.
[2017-05-12] MEDS: HYDRAGUARD CREAM TP SCH ×2 (02:10→12:39)
--- NOTE | 2017-05-12 06:00 | NUR ---
AWAKE, STANDING BEDSIDE BED, VOIDED ON THE FLOOR. CLEANSED AND PUT ON NEW DIAPER.
[2017-05-12] MEDS: QUEtiapine FUMARATE 25 MG TAB PO SCH ×2 (06:12→20:40)
--- NOTE | 2017-05-12 06:50 | NUR ---
CONDITION REMAIN STABLE. WILL ENDORSE TO AM NURSE FOR CONTINUITY OF CARE.
--- NOTE | 2017-05-12 07:15 | NUR ---
RECEIVED REPORT FROM JOURNALISM INSTRUCTOR HERBIE CARRILLO. PT IS SITTING IN BED, PT IS AAOX1, AMBULATES WITH ASSIST, PT HAS NO IV ACCESS, PT HAS BILATERAL LOWER EXTREMITY EDEMA, NO S/S OF RESPIRATORY DISTRESS OR DISCOMFORT NOTED, DISCUSSED PLAN OF CARE WITH PT, PT UNABLE TO COMPREHEND, SAFETY/FALL PRECAUTIONS ARE IN PLACE, CALL LIGHT IS WITHIN REACH, WILL CONTINUE TO MONITOR.
[2017-05-12 08:00] VITALS: BP 135/85
[2017-05-12] MEDS: risperiDONE 1 MG TAB PO SCH ×2 (09:58→21:15)
[2017-05-12] MEDS: MEMANTINE 10 MG TAB PO SCH (09:58)
[2017-05-12] MEDS: amLODIPine 5 MG TAB PO SCH (09:59)
--- NOTE | 2017-05-12 10:00 | NUR ---
PT IS AWAKE, SITTING ON THE BED, MEDICATION GIVEN. NO SIGNS OF DISTRESS NOTED AT THIS TIME. WILL CONTINUE TO MONITOR.
--- NOTE | 2017-05-12 11:17 | NUR ---
MEDICAL APPLICATION HAS BEEN FILED. MEDICAL WORKER'S NAME Drew PELLETIER, FILE NUMBER [id number]. MEDICAL PENDING CASE # IS [id number]. MEDI WORKER'S PHONE [phone]. AWAITING FOR MEDICAL TO BE FINALIZED.
--- NOTE | 2017-05-12 12:30 | NUR ---
PT IS AWAKE, SITTING ON THE BED. NO SIGNS OF DISTRESS NOTED. CALL LIGHT WITHIN REACH. WILL CONTINUE TO MONITOR.
--- NOTE | 2017-05-12 14:30 | NUR ---
PT IS AWAKE SEATED ON THE BED. CALL LIGHT WITHIN REACH. NO SIGNS OF DISTRESS NOTED AT THIS TIME. ALL NEEDS ARE MET.
[2017-05-12 16:00] VITALS: BP 148/82
--- NOTE | 2017-05-12 16:45 | NUR ---
PT IS AWAKE, SEATED ON THE BED. VITAL SIGNS TAKEN. NO UNTOWARD SIGNS AND SYMPTOMS NOTED. WILL CONTINUE TO MONITOR.
--- NOTE | 2017-05-12 18:55 | NUR ---
ENDORSED PT TO OIL AND GAS DRAFTER NURSE FOR CONTINUITY OF CARE. PT IS STABLE. NO SIGNS OF DISTRESS NOTED.
--- NOTE | 2017-05-12 18:56 | NUR ---
RECD. AMBULATING IN HIS ROOM, AWAKE, A/OX1. RESPIRATION EVEN AND UNLABORED. SELDOM SPEAKS, BUT OBEYS WHEN GIVEN INSTRUCTION AND LEAD BY THE HAND TO GO BACK TO HIS ROOM. WITH BILATERAL PITTING EDEMA +1. ON BILATERAL LOWER EXTREMITIES. NO REDNESS NOTED AT THE SACRAL AREA AND BUTTOCKS. PLAN OF CARE FOR THE SHIFT DISCUSSED. SEEMS NOT TO MIND AT ALL. NEEDS REINFORCEMENT. SAFETY MEASURES ENFORCED. NO APPEARANCE OF PAIN NOTED 0/10.
--- NOTE | 2017-05-12 20:00 | NUR ---
Patient's Plan of Care was discussed and reviewed with ON AIR DIRECTOR: LORENA BARBER
--- NOTE | 2017-05-12 21:15 | NUR ---
DUE PO MEDICATIONS GIVEN WITH APPLE SAUCE.
--- NOTE | 2017-05-12 23:00 | NUR ---
SLEEPING COMFORTABLY IN BED.
[2017-05-13] VITALS: BP 128/58
[2017-05-13] MEDS: HYDRAGUARD CREAM TP SCH ×2 (01:20→13:00)
--- NOTE | 2017-05-13 04:00 | NUR ---
STILL SLEEPING COMFORTABLY IN BED.
[2017-05-13] MEDS: QUEtiapine FUMARATE 25 MG TAB PO SCH ×2 (06:23→21:15)
--- NOTE | 2017-05-13 07:15 | NUR ---
ABLE TO SLEEP WELL. CONDITION STABLE. ENDORSED TO DAVID QUIROZ FOR CONTINUITY OF CARE.
--- NOTE | 2017-05-13 07:20 | NUR ---
RECEIVED PATIENT REPORT FROM NIGHT NURSE, PATIENT IS AWAKE ALERT TO SELF, SHOWS NO S/S OF ACUTE DISTRESS ON ROOM AIR, NO IV ACCESS, PATIENT IS MINIMALLY VERBAL, NOTED BLE PINK WITH PITTING 2+ EDEMA; OTHERWISE SKIN IS INTACT. PATIENT HAS NO C/O PAIN. SAFETY AND FALL PRECAUTIONS IN PLACE, DISCUSSED POC WITH PATIENT HOWEVER PATIENT IS UNABLE TO COMPREHEND AND NEEDS REINFORCEMENT. BED IN LOW POSITION.
[2017-05-13 08:30] VITALS: BP 129/90
[2017-05-13] MEDS: amLODIPine 5 MG TAB PO SCH (09:36)
[2017-05-13] MEDS: risperiDONE 1 MG TAB PO SCH ×2 (09:37→21:15)
[2017-05-13] MEDS: MEMANTINE 10 MG TAB PO SCH (09:37)
--- NOTE | 2017-05-13 09:39 | NUR ---
ATTEMPTED TO ADMINISTER DAILY MEDICATIONS HOWEVER PATIENT IS SLEEPING AND IS UNCOOPERATIVE TO TAKE MEDICATIONS, WILL ATTEMPT AT A LATER TIME.
--- NOTE | 2017-05-13 12:15 | NUR ---
PATIENT IS MORE AWAKE AND EATING LUNCH, PATIENT TOOK MEDICATIONS, AND SWALLOWED WITHOUT DIFFICULTY. PATIENT IS TOLERATING DIET WELL. ALL NEEDS MET AT THIS TIME.
--- NOTE | 2017-05-13 13:55 | NUR ---
05/13/17 RD FOLLOW UP COMPLETED PLEASE REFER TO NUTRITION ASSESSMENT UNDER CARE ACTIVITY FOR ESTIMATED NUTRITIONAL NEEDS. 1. CONTINUE REGULAR DIET TOLERATED - PATIENT MEETING >75% OF ESTIMATED KCAL AND PROTEIN NEEDS 2. RD TO FOLLOW-UP 5-7 DAYS, LOW RISK OCTAVIO BENDER, RD
--- NOTE | 2017-05-13 14:35 | NUR ---
PATIENT IS AWAKE AND AMB ON UNIT, PATIENT ENCOURAGED TO WEAR SOCKS HOWEVER PATIENT DOESN'T SEEM TO COMPREHEND OR FOLLOW COMMANDS WELL. PATIENT AMB TO ROOM WITH ASSISTANCE, ALL NEEDS MET AT THIS TIME.
[2017-05-13 16:05] VITALS: BP 133/88
--- NOTE | 2017-05-13 19:15 | NUR ---
PATIENT REPORT GIVEN AT BEDSIDE, PATIENT ENDORSED IN STABLE CONDITION.
[2017-05-13 20:00] VITALS: BP 149/85
--- NOTE | 2017-05-13 21:00 | NUR ---
SEEN PT WALKING IN THE UNIT W/ JOSÉ MIGUEL ROD WHILE HIS ROOM IS BEING CLEAN.
--- NOTE | 2017-05-13 21:10 | NUR ---
PT BACK TO HIS ROOM SITTING ON THE EDGE OF THE BED EATING SOME SANDWICH. DUE MEDICATION GIVEN W/ APPLE SAUCE. PT TOLERATED MEDS WELL. WILL CONTINUE TO MONITOR.
--- NOTE | 2017-05-13 22:45 | NUR ---
SEEN PT SITTING ON THE EDGE OF THE BED APPEARS TO BE FALLING ASLEEP. CHAIR PLACED CLOSED TO PT W/ PILLOWS ON TOP. ENCOURAGED PT TO LAY DOWN IN BED BUT DOESN'T WANT TO. ASKED JOSÉ MIGUEL ROD IF HE'S ABLE TO HELP PT GO LAY DOWN IN BED.
--- NOTE | 2017-05-14 00:15 | NUR ---
SEEN PT IN BED APPEARS ASLEEP. SAFETY REINFORCED.
[2017-05-14] MEDS: HYDRAGUARD CREAM TP SCH ×2 (01:23→13:21)
[2017-05-14 05:00] VITALS: BP 160/92
--- NOTE | 2017-05-14 05:05 | NUR ---
SEEN PT STARTING TO WAKE UP. VITAL SIGNS CHECKED. SAFETY REINFORCED.
[2017-05-14] MEDS: QUEtiapine FUMARATE 25 MG TAB PO SCH ×2 (06:55→21:04)
[2017-05-14 08:00] VITALS: BP 159/84
[2017-05-14] MEDS: risperiDONE 1 MG TAB PO SCH ×2 (08:49→21:04)
[2017-05-14] MEDS: MEMANTINE 10 MG TAB PO SCH (08:49)
[2017-05-14] MEDS: amLODIPine 5 MG TAB PO SCH (08:49)
--- NOTE | 2017-05-14 08:51 | NUR ---
PATIENT MEDICATION RISPERDAL NOT AVAILABLE ON EITHER TELE OR MEDICAL SURGICAL UNIT. CALLED AND SPOKE WITH . PATIENT IS SLEEPING AND IS UNCOOPERATIVE AT THIS TIME TO ADMINISTER SCHEDULED MEDICATIONS. WILL TRY AGAIN AT A LATER TIME.
--- NOTE | 2017-05-14 11:30 | NUR ---
PATIENT IS SLEEPING IN BED AND SHOWS NO S/S OF ACUTE DISTRESS ON ROOM AIR, BED IN LOW POSITION WITH CALL LIGHT WITHIN REACH.
--- NOTE | 2017-05-14 13:30 | NUR ---
PATIENT IS SLEEPING COMFORTABLY. PATIENT'S BED IS LOW, SAFETY PRECAUTIONS IN PLACE.
--- NOTE | 2017-05-14 15:50 | NUR ---
GAVE PATIENT REPORT TO RICARDO HERNANDEZ.
[2017-05-14 16:00] VITALS: BP 149/85
--- NOTE | 2017-05-14 16:00 | NUR ---
RECEIVED PATIENT FROM GABRIELLA HERNANDEZ FOR CONTINUITY OF CARE. NO S/S OF RESP DISTRESS NOTED ,NO C/O PAIN OF PAIN . PATIENT CONFUSED UNABLE TO FOLLOW CONVERSATION. INCONTINENT OF BOWEL AND BLADDER CLEAN PATIENT AND KEPT HIM DRY. BED BATH GIVEN. VITALS STABLE WILL CONTINUE TO MONITOR.
--- NOTE | 2017-05-14 18:46 | NUR ---
ATE DINNER GOOD APPETITE . SAFETY MAINTAINED CALL LIGHT IN REACH STABLE CONDITION AT THIS TIME.
--- NOTE | 2017-05-14 19:15 | NUR ---
RECEIVED PT FROM DAY SHIFT NURSE KIMBERLY. AOX1, ON ROOM AIR AND NO IV. BLE EDEMA-PITTING +2. PT SLEEPING IN BED. NO S/S OF RESPIRATORY DISTRESS OR DISCOMFORT NOTED. PT HAS BEEN SLEEPING MOST OF THE DAY. BED IN LOWEST POSITION. WILL CONTINUE TO MONITOR.
[2017-05-14 20:00] VITALS: BP 146/76
--- NOTE | 2017-05-14 21:05 | NUR ---
SCHEDULED MEDICATIONS GIVEN IN APPLE SAUCE. PT TOLERATED WELL. ASSISTED PT BACK TO BED IN A COMFORTABLE POSITION. BED IN LOWEST POSITION. NO S/S OF RESPIRATORY DISTRESS AND DISCOMFORT NOTED AT THIS TIME. WILL CONTINUE TO MONITOR.
--- NOTE | 2017-05-14 22:45 | NUR ---
ASSISTED PT BACK IN TO BED AFTER FINDING PT SITTING IN BED ASLEEP. ATTEMPTED TO MAKE PT COMFORTABLE POSSIBLE. WILL CONTINUE TO MONITOR.
--- NOTE | 2017-05-14 23:16 | NUR ---
RECEIVED PT FROM DAY SHIFT NURSE KIMBERLY. AOX1, ON ROOM AIR AND NO IV. BLE EDEMA-PITTING +2. PT SLEEPING IN BED. NO S/S OF RESPIRATORY DISTRESS OR DISCOMFORT NOTED. PT HAS BEEN SLEEPING MOST OF THE DAY. BED IN LOWEST POSITION. WILL CONTINUE TO MONITOR. Addendum: 05/14/17 at 2321 by Patito Cain RN PLEASE DISREGARD. WRONG TIME ENTERED.
[2017-05-15] VITALS: BP 132/81
[2017-05-15] MEDS: HYDRAGUARD CREAM TP SCH ×2 (00:28→13:00)
--- NOTE | 2017-05-15 00:28 | NUR ---
PT CONTINUES TO SLEEP. CHANGED DIAPER AND CHUX THEY WERE SATURATED IN URINE. BED IN LOWEST POSITION. NO S/S OF RESPIRATORY DISTRESS OR DISCOMFORT NOTED AT THIS TIME. WILL CONTINUE TO MONITOR.
--- NOTE | 2017-05-15 02:43 | NUR ---
PT CONTINUES TO SLEEP. WILL CONTINUE TO MONITOR.
--- NOTE | 2017-05-15 05:18 | NUR ---
PT CONTINUES TO SLEEP. VITAL SIGNS STABLE. UNUSUAL BEHAVIOR TO BE SLEEPING SINCE DAY SHIFT. CHARGE NURSE GUDELIA NOTIFIED. WILL CONTINUE TO MONITOR.
[2017-05-15] MEDS: QUEtiapine FUMARATE 25 MG TAB PO SCH ×2 (06:28→21:00)
--- NOTE | 2017-05-15 06:29 | NUR ---
SPOKE WITH DR. DIXON ABOUT PT CONDITION. SHE SAID TO HOLD THE SEROQUIL AND RESPIDOL. ALSO TO GET A CBC, BNP AND ABG STAT. CHARGE NURSE ALSO AWARE.
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
--- NOTE | 2017-05-15 07:20 | NUR ---
ENDORSED PT TO DAY SHIFT NURSE JOSÉ LUIS TO CONTINUE PT CARE. PT STABLE AT THIS TIME.
--- NOTE | 2017-05-15 07:21 | NUR ---
RECEIVED REPORT FROM DISTRICT RANGER NURSE AT BEDSIDE FOR CONTINUITY OF CARE . PATIENT PENDING LABS AND ABG RESULTS FOR CHANGE IN COGNITION. NO IV ACCESS .
[2017-05-15 07:25] LABS: BASOPHILS % (AUTO) 0.6 % (0.0-2.0); EOSINOPHILS # (AUTO) 0.1 K/uL (0-0.4); HEMOGLOBIN 13.5 g/dL (12.0-18.0); LYMPHOCYTES # (AUTO) 0.7 K/uL (2.0-11.5); LYMPHOCYTES % (AUTO) 13.9 % (20.5-51.1); MEAN CORPUSCULAR HEMOGLOBIN 29 pg (27-31); MEAN CORPUSCULAR HGB CONC 34 g/dL (33-37); MEAN CORPUSCULAR VOLUME 86.7 fL (80-94); MONOCYTES # (AUTO) 0.7 K/uL (0.8-1.0); NEUTROPHILS # (AUTO) 3.3 K/uL (1.8-7.7); NEUTROPHILS % (AUTO) 67.5 % (42.2-75.2); PLATELET COUNT (AUTO) 302 K/uL (140-450); RED BLOOD CELL COUNT(AUTO) 4.61 MIL/uL (4.20-6.10); RED CELL DISTRIBUTION WIDTH 13.9 % (11.6-13.7); WHITE BLOOD COUNT (AUTO) 4.9 K/uL (4.8-10.8)
[2017-05-15 08:00] VITALS: BP 125/73
--- NOTE | 2017-05-15 08:00 | NUR ---
INITIAL ASSESSMENT PERFORMED. PATIENT LETHARGIC IN BED. NO ACUTE DISTRESS. RESP EVEN AND UNLABORED. PATIENT LUNG SOUNDS CLEAR. BOWEL SOUNDS ACTIVE. MO IV ACCESS.SKIN INTACT NO OPEN WOUNDS. NO C/O PAIN OR DISCOMFORT AT THIS TIME FLACC 0. PLAN OF CARE DISCUSSED WITH PATIENT. .BOARD UPDATED. PENDING LABS DRAWN THIS AM FOR ALOC. FREQUENT VISUAL CHECKS. CALL LIGHT WITHIN REACH. WILL CONT TO MONITOR.
[2017-05-15] MEDS: risperiDONE 1 MG TAB PO SCH ×2 (09:00→21:00)
[2017-05-15] MEDS: MEMANTINE 10 MG TAB PO SCH (09:00)
[2017-05-15] MEDS: amLODIPine 5 MG TAB PO SCH (09:00)
--- NOTE | 2017-05-15 10:30 | NUR ---
PATIENT LETHARGIC IN BED. CHANGED PATIENT SOILED WITH URINE ON ERIS. INCONTINENT. PATIENT TOLERATED WELL . TURNED AND REPOSITIONED. RESPONSIVE TO TACTILE STIMULI. WILL CONT TO MONITOR.
--- NOTE | 2017-05-15 11:51 | NUR ---
REPORTED LABS TO DR TOBIAS. [facility] NEW ORDERS FOR CXR STAT.
--- NOTE | 2017-05-15 12:30 | NUR ---
REPORTED RESULTS OF CXR TO DR TOBIAS IN BUILDING . STATED HE IS AWARE AND REVIEWED HIS LABS AND CXR WITH NO NEW ORDERS.
--- NOTE | 2017-05-15 13:00 | NUR ---
HYDRAGUARD APPLIED TO PERINEAL AREA. TOLERATED WELL. PATIENT TURNED AND REPOSITIONED. HEELS OFFLOADED. WILL CONT TO MONITOR. PATIENT CONT REACTING TO STIMULI.
--- NOTE | 2017-05-15 15:00 | NUR ---
PATIENT IN BED TURNED AND REPOSITIONED. TOLERATED WELL. CONT WITH SAME LOC. RESPONDS TO STIMULI. FREQUENT VISUAL CHECKS. CALL LIGHT WITHIN REACH. WILL CONT TO MONITOR.
[2017-05-15 16:00] VITALS: BP 116/72
--- NOTE | 2017-05-15 16:00 | NUR ---
PATIENT LETHARGIC IN BED RESPONDS TO TACTILE STIMULI. NO ACUTE DISTRESS NOTED. VSS. FLACC 0. FREQUENT VISUAL CHECKS. WILL CONT TO MONITOR.
--- NOTE | 2017-05-15 18:00 | NUR ---
PT ATE DINNER THIS EVENING. TOLERATED WELL. NO ACUTE DISTRESS NOTED. CONTINUES IN BED. WILL CONT TO MONITOR.
--- NOTE | 2017-05-15 19:00 | NUR ---
ENDORSED REPORT AT BEDSIDE TO WILDLIFE REFUGE SPECIALIST NURSE FOR CONTINUITY OF CARE. PATIENT STABLE.
--- NOTE | 2017-05-15 19:10 | NUR ---
RECEIVED PT FROM RAFIQ RN PT UNABLE TO COMPREHEND DOES NOT FOLLOW COMMANDS, DROWSY , NOT SOB NOTED PT LYING ON BED INITIAL ASSESSMENT DONE
[2017-05-15 20:00] VITALS: BP_SYST 140; BP_SYST 95; BP_DIAS 54; BP_DIAS 65
--- NOTE | 2017-05-15 20:00 | NUR ---
CRYPTOLOGIC TECHNICIAN TECHNICALKimberley PATRICIA IS FEEDING THE PT HE IS TOLERATED WELL AND EATING WELL, LINEN CHANGED AFTER EATING AND REPOSITIONED
--- NOTE | 2017-05-15 21:30 | NUR ---
PT IS TAKEN WELL HIS MEDIC CRASHED WITH APPLE SAUCE DROWSY NOT AGITATION REPOSITIONED Q12H
--- NOTE | 2017-05-16 | NUR ---
PT SLEEPING LINEN HAS BEEN CHANGED NECESSARY , REPOSITIONED Q2H
[2017-05-16] MEDS: HYDRAGUARD CREAM TP SCH ×2 (01:53→13:52)
--- NOTE | 2017-05-16 02:00 | NUR ---
PT ON CLOSE MONITORING 02 SAT 98% NOT SOB NOTED ON DEEP SLEEP RESPONDING TO NOXIOUS STIMULOS
[2017-05-16 04:00] VITALS: BP 153/79
--- NOTE | 2017-05-16 04:00 | NUR ---
PT ON DEEP SLEEP SNORING 02 SAT 99% REPOSITIONED Q2H AND LINEN CHANGES NECESSARY
[2017-05-16] MEDS: QUEtiapine FUMARATE 25 MG TAB PO SCH ×2 (06:30→21:17)
--- NOTE | 2017-05-16 06:30 | NUR ---
MEDICINE IS NOT GIVEN PT ON DEEP SLEEP
--- NOTE | 2017-05-16 07:00 | NUR ---
PT IS ENDORSED TO TEAGAN HERNANDEZ FOR CONTINUITY OF CARE PT ON DEEP SLEEP RESPONDING TO NOXIOUS STIMULU AND DR ZIEGLER WAS PAGED TONOTIFY PT CONDITION
--- NOTE | 2017-05-16 07:01 | NUR ---
RECEIVED REPORT FROM [facility] NURSE HANG AT BEDSIDE FOR CONTINUITY OF CARE. PT IS IN DEEP SEDATION. AROUSED TO DEEP SHAKING AND WHEN WET TOWEL APPLIED TO FACE. PT WENT BACK TO SLEEP. NO SIGNS OF DISTRESS. NO SOB. BED IN LOW POSITION, WHEELS LOCKED, CALL LIGHT WITHIN REACH. WILL CONTINUE TO MONITOR.
[2017-05-16 08:00] VITALS: BP 116/80
[2017-05-16] MEDS: amLODIPine 5 MG TAB PO SCH (09:00)
[2017-05-16] MEDS: MEMANTINE 10 MG TAB PO SCH (09:00)
[2017-05-16] MEDS: risperiDONE 1 MG TAB PO SCH (09:00)
--- NOTE | 2017-05-16 10:05 | NUR ---
DR. ZIEGLER CAME IN AND SAW PT. REPORTED PT IS IN DEEP SEDATION. NO MEDICATIONS GIVEN DURING AM SCHEDULE. PT IS ASLEEP IN BED RIGHT NOW. BED IN LOW POSITION, WHEELS LOCKED, CALL LIGHT WITHIN REACH. WILL CONTINUE TO MONITOR.
--- NOTE | 2017-05-16 13:20 | NUR ---
PT IS ASLEEP IN BED NO SIGNS OF DISTRESS. AWAKE WITH DEEP SHAKING. WENT BACK TO SLEEP. WILL CONTINUE TO MONITOR.
[2017-05-16 16:00] VITALS: BP 110/65
--- NOTE | 2017-05-16 16:50 | NUR ---
PT HAD INCONTINENT URINE. PRESS FEEDER BROOMCORN IN ROOM CLEANED PT AND CHANGED LINENS. NO SIGS OF DISTRESS. WILL CONTINUE TO MONITOR.
--- NOTE | 2017-05-16 19:25 | NUR ---
ENDORSED PT TO SETTLEMENT PROCESSOR NURSE DEBORAH AT BEDSIDE FOR CONTINUITY OF CARE. PT IN STABLE CONDITION.
--- NOTE | 2017-05-16 19:35 | NUR ---
RECEIVED REPORT FROM DAY SHIFT RN, PATIENT SLEEPING IN BED, NO S/S OF DISTRESS NOTED, RESPIRATION EVEN AND UNLABORED, ON ROOM AIR. PATIENT IS AROUSABLE WHEN TAPPED ON THE SHOULDER. NO IV ACCESS AT THIS TIME. CALL LIGHT WITHIN REACH, SAFETY MEASURE ENSURED, WILL CONTINUE TO MONITOR.
--- NOTE | 2017-05-16 21:25 | NUR ---
PATIENT WAS AWAKE AND EATING DINNER, DUE MEDICATION GIVEN ORDERED WITH DINNER. PATIENT TOLERATED WELL. NO S/S OF DISTRESS NOTED, WILL CONTINUE TO MONITOR.
--- NOTE | 2017-05-16 23:50 | NUR ---
PATIENT WAS SLEEPING, BUT AROUSABLE, VITAL SIGNS STALE. NO S/S OF DISTRESS NOTED, RESPIRATION EVEN AND UNLABORED, WILL CONTINUE TO MONITOR.
[2017-05-17] VITALS: BP 127/78
[2017-05-17] MEDS: HYDRAGUARD CREAM TP SCH ×2 (01:08→13:16)
--- NOTE | 2017-05-17 01:20 | NUR ---
SKIN CARE DONE ORDERED. PATIENT RESTING IN BED. SAFETY MEASURE ENSURED, WILL CONTINUE TO MONITOR.
--- NOTE | 2017-05-17 02:49 | NUR ---
PATIENT IS SLEEPING, NO S/S OF DISTRESS NOTED, RESPIRATION EVEN AND UNLABORED, CALL LIGHT WITHIN REACH, SAFETY MEASURE ENSURED, WILL CONTINUE TO MONITOR
--- NOTE | 2017-05-17 04:51 | NUR ---
NO CHANGE IN CONDITION, PATIENT IS SLEEPING, NO S/S OF DISTRESS NOTED, RESPIRATION EVEN AND UNLABORED, CALL LIGHT WITHIN REACH, SAFETY MEASURE ENSURED, WILL CONTINUE TO MONITOR
[2017-05-17] MEDS: QUEtiapine FUMARATE 25 MG TAB PO SCH ×2 (06:30→20:16)
--- NOTE | 2017-05-17 06:50 | NUR ---
PATIENT IS VERY DROWSY, UNABLE TO TAKE PO MEDICATION. SEROQUEL HELD AT THIS TIME.
--- NOTE | 2017-05-17 07:10 | NUR ---
ENDORSED PLAN OF CARE TO DAY SHIFT RN. PATIENT IS IN STABLE CONDITION.
--- NOTE | 2017-05-17 07:11 | NUR ---
RECEIVED REPORT FROM RADIAL DRILL OPERATOR NURSE DEBORAH AT BEDSIDE FOR CONTINUITY OF CARE. BED ALARM TRIGGERED. PT WAS TRYING TO GET OUT OF BED. ASSISTED PT BACK TO BED. NO SIGNS OF DISTRESS. PLACED BED ALARM ON, BED IN LOW POSITION, WHEELS LOCKED. WILL CONTINUE TO MONITOR.
[2017-05-17 08:00] VITALS: BP 133/80
[2017-05-17] MEDS: amLODIPine 5 MG TAB PO SCH (09:53)
[2017-05-17] MEDS: MEMANTINE 10 MG TAB PO SCH (09:53)
--- NOTE | 2017-05-17 09:58 | NUR ---
PT IS DROWSY BUT TALKING AND DRINKING WITH EYES CLOSED. DR. ZIEGLER CAME IN AND SAW PT. REPORTED PT DROWSY TODAY. ADMINISTERED SCHEDULED MEDS. PT TOLERATED WELL. BED IN LOW POSITION, WHEELS LOCKED, BED ALARM ON. WILL CONTINUE TO MONITOR.
[2017-05-17 16:00] VITALS: BP 138/68
--- NOTE | 2017-05-17 16:05 | NUR ---
PT ASLEEP IN BED. AWAKES WITH DEEP SHAKING AND MUMBLING WORDS. PT WENT BACK TO SLEEP. NO SIGNS OF DISTRESS. BED ALARM ON. WILL CONTINUE TO MONITOR.
--- NOTE | 2017-05-17 19:10 | NUR ---
ENDORSED PT TO LIBRARY ACQUISITIONS TECHNICIAN NURSE DEBORAH AT BEDSIDE FOR CONTINUITY OF CARE. PT IN STABLE CONDITION.
--- NOTE | 2017-05-17 19:20 | NUR ---
RECEIVED REPORT FROM DAY SHIFT RN, PATIENT IS AWAKE AND EATING DINNER, NO S/S OF DISTRESS NOTED, RESPIRATION EVEN AND UNLABORED, ON ROOM AIR. NO IV ACCESS AT THIS TIME. CALL LIGHT WITHIN REACH, SAFETY MEASURE ENSURED, WILL CONTINUE TO MONITOR.
--- NOTE | 2017-05-17 20:16 | NUR ---
DUE MEDICATION GIVEN, PATIENT TOLERATED WELL. CALL LIGHT WITHIN REACH, SAFETY MEASURE ENSURED, WILL CONTINUE TO MONITOR.
--- NOTE | 2017-05-17 23:48 | NUR ---
PATIENT SLEEPING IN BED, NO S/S OF DISTRESS NOTED, RESPIRATION EVEN AND UNLABORED, ON ROOM AIR. CALL LIGHT WITHIN REACH, SAFETY MEASURE ENSURED, WILL CONTINUE TO MONITOR.
[2017-05-18] VITALS: BP 130/72
[2017-05-18] MEDS: HYDRAGUARD CREAM TP SCH ×2 (00:45→14:00)
--- NOTE | 2017-05-18 01:20 | NUR ---
SKIN CARE DONE ORDERED. PATIENT TOLERATED WELL. NO S/S OF DISTRESS NOTED, RESPIRATION EVEN AND UNLABORED, WILL CONTINUE TO MONITOR.
--- NOTE | 2017-05-18 03:01 | NUR ---
PATIENT IS SLEEPING, NO S/S OF DISTRESS NOTED, RESPIRATION EVEN AND UNLABORED, CALL LIGHT WITHIN REACH, SAFETY MEASURE ENSURED, WILL CONTINUE TO MONITOR.
[2017-05-18] MEDS: QUEtiapine FUMARATE 25 MG TAB PO SCH ×2 (05:48→20:16)
--- NOTE | 2017-05-18 05:50 | NUR ---
DUE MEDICATION GIVEN, PATIENT TOLERATED WELL. SAFETY MEASURE ENSURED, WILL CONTINUE TO MONITOR.
--- NOTE | 2017-05-18 07:10 | NUR ---
ENDORSED PLAN OF CARE TO DAY SHIFT RN, PATIENT IS IN STABLE CONDITION.
--- NOTE | 2017-05-18 07:10 | NUR ---
RECEIVED PATIENT FROM NIGHTSHIFT NURSE SLEEPING IN BED. RECEIVED REPORT AT BEDSIDE. PATIENT IS AROUSABLE TO SHAKING AT THIS TIME. SEROQUEL GIVEN YESTERDAY NIGHT. PATIENT'S RESPIRATIONS ARE EVEN AND UNLABORED AT THIS TIME. NO RESPIRATORY DISTRESS OR RESPIRATORY DEPRESSION NOTED. ARMED BED WITH ALARM IN CASE PATIENT TRIES TO GET UP. APPROPRIATE SIGNS OUTSIDE OF PATIENT'S ROOM. PATIENT'S ROOM NEAR NURSING STATION. WILL CONTINUE TO MONITOR PATIENT.
[2017-05-18 08:00] VITALS: BP 132/60
[2017-05-18] MEDS: MEMANTINE 10 MG TAB PO SCH (10:21)
[2017-05-18] MEDS: amLODIPine 5 MG TAB PO SCH (10:21)
--- NOTE | 2017-05-18 10:28 | NUR ---
PATIENT APPEARS AWAKE. PUT PATIENT IN HIGH FOWLERS POSITION. ADMINISTERED AM MEDICATIONS ALONG WITH BREAKFAST. MEAT SPECIALIST IS FEEDING PATIENT BREAKFAST. PATIENT TOLERATING WELL. LEFT PATIENT IN HIGH FOWLERS POSITION.
--- NOTE | 2017-05-18 10:44 | NUR ---
PATIENT RESTING IN BED AT THIS TIME. NO SIGNS OF PAIN. NO RESPIRATORY DEPRESSION OR DISTRESS. WILL CONTINUE TO MONITOR PATIENT.
--- NOTE | 2017-05-18 13:50 | NUR ---
PATIENT SLEEPING IN BED. FLACC SCORE IS 0. WILL CONTINUE TO MONITOR PATIENT.
--- NOTE | 2017-05-18 15:21 | NUR ---
1423 CALL PLACED TO PT'S ARTIS BACON AND DISCUSSED WITH HER THAT PT'S CONDITION IS DECLINING AND THAT PT IS EATING LESS AND SLEEPING MORE. DISCUSSED WITH HER WHAT PT'S WISHES WOULD BE FOR RESUSCITATION AND SHE STATED THAT SHE WANTED PT TO BE A DNR AND THOUGHT THAT HE WAS. INFORMED HER THAT I WILL REQUEST THAT PHYSICIAN CALL HER TO DISCUSS CODE STATUS. ARTIS ALSO STATED THAT PT WAS ON [facility] AT HOME. INFORMED HER THAT HOSPICE IS AN OPTION AND DCM WILL FOLLOW UP TOMORROW. MRS BACON INDICATED THAT PT BECAME TOO MUCH FOR HER TO HANDLE AND SHE DOES WANT TO HONOR HIS WISHES AND ALLOW HIM TO PASS WITH COMFORT. INFORMED HER THAT SHE CAN COME TO THE FACILITY AND MAKE OUT A POLST FORM BUT IN THE MEAN TIME THE NURSE WILL CONTACT DR TO INFORM HIM OF THE DNR REQUEST. MRS BACON THANKED THIS PACKER OPERATOR AUTOMATIC FOR THE CALL.
--- NOTE | 2017-05-18 15:50 | NUR ---
PATIENT IS SLEEPING IN BED. NO RESPIRATORY DISTRESS OR RESPIRATORY DEPRESSION. WILL CONTINUE TO MONITOR PATIENT.
[2017-05-18 16:00] VITALS: BP 121/71
--- NOTE | 2017-05-18 16:15 | NUR ---
DR ZIEGLER SPOKE WITH PATIENT'S ARTIS CHACON VIA TELEPHONE [phone] EXPLAINED THE PATIENT'S CONDITION AND CODE STATUS . PATIENT'S ARTIS GAVE PERMISSION THAT SHE WANTED HER TO BE DNR. CODE STATUS CHANGED TO DNR PER MD ORDER.
--- NOTE | 2017-05-18 18:00 | NUR ---
PATIENT IN BED. FLACC SCORE IS 0. NO RESPIRATORY DISTRESS OR RESPIRATORY DEPRESSION. WILL CONTINUE TO MONITOR PATIENT.
--- NOTE | 2017-05-18 19:30 | NUR ---
GAVE REPORT TO NIGHTSHIFT NURSE. PATIENT IN STABLE CONDITION.
--- NOTE | 2017-05-18 19:31 | NUR ---
RECEIVED REPORT FROM RN AT BEDSIDE. PT TRYING TO GET OUT OF PT. AAOX1. NO S/S OF ACUTE DISTRESS. FLACC-0. PT HAS NO IV SITE. PT REPOSITIONED IN BED. CALL LIGHT WITHIN REACH. SAFETY MEASURES ENSURED. BED ALARM ON. WILL CONTINUE TO MONITOR.
--- NOTE | 2017-05-18 20:18 | NUR ---
DUE MEDS GIVEN WITH PUDDING. NO S/S OF ACUTE DISTRESS. PT DENIES PAIN. CALL LIGHT WITHIN REACH. SAFETY MEASURES ENSURED. BED ALARM ON. WILL CONTINUE TO MONITOR.
--- NOTE | 2017-05-18 21:51 | NUR ---
PT REPEATEDLY TRIES TO GET OUT OF BED. PT SLAPPING HANDS WHEN TRYING TO REPOSITION. PT APPEARS AGITATED. HALDOL GIVEN.
[2017-05-18 23:57] VITALS: BP 135/73
--- NOTE | 2017-05-19 | NUR ---
PT RESTING IN BED. NO S/S OF ACUTE DISTRESS. FLACC-0. CALL LIGHT WITHIN REACH. SAFETY MEASURES ENSURED. WILL CONTINUE TO MONITOR.
[2017-05-19] MEDS: HYDRAGUARD CREAM TP SCH ×2 (00:56→13:00)
[2017-05-19] MEDS: QUEtiapine FUMARATE 25 MG TAB PO SCH ×2 (05:32→20:47)
--- NOTE | 2017-05-19 05:35 | NUR ---
PT SLEEPING IN BED. NO S/S OF ACUTE DISTRESS. FLACC-0. WILL CONTINUE TO MONITOR.
[2017-05-19 06:45] LABS: BASOPHILS # (AUTO) 0.1 K/uL (0.00-0.22); BASOPHILS % (AUTO) 1.2 % (0.0-2.0); EOSINOPHILS # (AUTO) 0.4 K/uL (0-0.4); EOSINOPHILS % (AUTO) 7.3 % (0.0-4.0); HEMATOCRIT 41.3 % (36-52); HEMOGLOBIN 13.8 g/dL (12.0-18.0); LYMPHOCYTES # (AUTO) 1.1 K/uL (2.0-11.5); LYMPHOCYTES % (AUTO) 17.9 % (20.5-51.1); MEAN CORPUSCULAR HEMOGLOBIN 29 pg (27-31); MEAN CORPUSCULAR HGB CONC 33 g/dL (33-37); MONOCYTES % (AUTO) 16.6 % (1.7-9.3); NEUTROPHILS # (AUTO) 3.5 K/uL (1.8-7.7); PLATELET COUNT (AUTO) 261 K/uL (140-450); WHITE BLOOD COUNT (AUTO) 6.2 K/uL (4.8-10.8)
--- NOTE | 2017-05-19 07:10 | NUR ---
RECEIVED PATIENT FROM NIGHTSHIFT NURSE SLEEPING IN BED. RECEIVED REPORT AT BEDSIDE. PATIENT IS AROUSABLE TO SHAKING AT THIS TIME. SEROQUEL GIVEN YESTERDAY NIGHT. PATIENT'S RESPIRATIONS ARE EVEN AND UNLABORED. ARMED BED WITH ALARM IN CASE PATIENT TRIES TO GET UP. APPROPRIATE SIGNS OUTSIDE OF PATIENT'S ROOM. PATIENT'S ROOM NEAR NURSING STATION. WILL CONTINUE TO MONITOR PATIENT.
[2017-05-19 07:22] LABS: ANION GAP 14.1 (8-16); CARBON DIOXIDE 29.6 mmol/L (21-32); POTASSIUM 3.7 mmol/L (3.5-5.1)
[2017-05-19 08:00] VITALS: BP 145/83
[2017-05-19] MEDS: MEMANTINE 10 MG TAB PO SCH (08:39)
[2017-05-19] MEDS: amLODIPine 5 MG TAB PO SCH (08:39)
--- NOTE | 2017-05-19 09:07 | NUR ---
PATIENT RESTING IN BED AT THIS TIME. FLACC SCORE 0. PATIENT BED ALARM IS ON. WILL CONTINUE TO MONITOR PATIENT.
--- NOTE | 2017-05-19 11:11 | NUR ---
PATIENT SLEEPING AT THIS TIME. FLACC SCORE IS 0. PATIENT'S RESPIRATIONS ARE WITHIN NORMAL LIMITS. WILL CONTINUE TO MONITOR PATIENT.
--- NOTE | 2017-05-19 12:55 | NUR ---
PATIENT ASLEEP AT THIS TIME. FLACC SCORE IS 0. NO RESPIRATORY DISTRESS OR RESPIRATORY DEPRESSION. WILL CONTINUE TO MONITOR PATIENT.
--- NOTE | 2017-05-19 14:02 | NUR ---
PATIENT RESTING IN BED. NO COMPLAINTS OF PAIN AT THIS TIME. WILL CONTINUE TO MONITOR PATIENT.
[2017-05-19 16:00] VITALS: BP 148/80
--- NOTE | 2017-05-19 16:00 | NUR ---
PATIENT AWAKE AT THIS TIME. FLACC SCORE 0. NO SIGNS RESPIRATORY DISTRESS OR RESPIRATORY DEPRESSION. WILL CONTINUE TO MONITOR PATIENT.
--- NOTE | 2017-05-19 18:10 | NUR ---
PATIENT RESTING IN BED AT THIS TIME. NO COMPLAINTS OF PAIN. WILL CONTINUE TO MONITOR
--- NOTE | 2017-05-19 19:35 | NUR ---
RECEIVED REPORT FROM DAY SHIFT RN, PT IS A/OX1, ON ROOM AIR. NO IV ACCESS. PT SEEMS LETHARGIC, SKIN IS INTACT, BUT THERE IS EDEMA AND ERYTHEMA TO LOWER EXTREMITIES, BILATERALLY. UPDATED BOARD. VITAL SIGNS WITHIN NORMAL LIMITS. PT IN STABLE CONDITION, NO SIGNS OF DISTRESS NOTED. BED IN LOWEST POSITION, CALL LIGHT WITHIN REACH. WILL CONTINUE TO MONITOR.
--- NOTE | 2017-05-19 20:48 | NUR ---
ADMINISTERED SCHEDULED MEDICATION, PT TOLERATED WELL. PT SWALLOWED PILL IN APPLESAUCE WITHOUT DIFFICULTY.
--- NOTE | 2017-05-19 22:00 | NUR ---
PT IN STABLE CONDITION, NO SIGNS OF DISTRESS NOTED. BED IN LOWEST POSITION, CALL LIGHT WITHIN REACH. WILL CONTINUE TO MONITOR.
[2017-05-20] VITALS: BP 132/69
--- NOTE | 2017-05-20 | NUR ---
VITAL SIGNS WITHIN NORMAL LIMITS. PT IN STABLE CONDITION, NO SIGNS OF DISTRESS NOTED. BED IN LOWEST POSITION, CALL LIGHT WITHIN REACH. WILL CONTINUE TO MONITOR.
[2017-05-20] MEDS: HYDRAGUARD CREAM TP SCH ×2 (01:00→13:20)
--- NOTE | 2017-05-20 02:00 | NUR ---
PT IN STABLE CONDITION, NO SIGNS OF DISTRESS NOTED. BED IN LOWEST POSITION, CALL LIGHT WITHIN REACH. WILL CONTINUE TO MONITOR.
--- NOTE | 2017-05-20 04:15 | NUR ---
PT IN STABLE CONDITION, NO SIGNS OF DISTRESS NOTED. BED IN LOWEST POSITION, CALL LIGHT WITHIN REACH. WILL CONTINUE TO MONITOR.
[2017-05-20] MEDS: QUEtiapine FUMARATE 25 MG TAB PO SCH ×2 (06:16→20:39)
--- NOTE | 2017-05-20 06:16 | NUR ---
ADMINISTERED SCHEDULED MEDICATION, PT TOLERATED WELL. PT IN STABLE CONDITION, NO SIGNS OF DISTRESS NOTED.
--- NOTE | 2017-05-20 07:26 | NUR ---
PT IN STABLE CONDITION. WILL WAIT FOR REGISTRY NURSE TO GIVE REPORT AND ENDORSE PT.
--- NOTE | 2017-05-20 08:00 | NUR ---
ASSUMED CARE OF PATIENT. HE IS AWAKE SITTING UP IN BED AND IS NONE VERBAL, NO EVIDENCE OF DISTRESS NOTED AT THIS TIME. PATIENT IS DEPENDANT FOR ALL CARE, WILL REPOSITIONED EVERY 2 HOURS AND CHECKED FOR EPISODES OF INCONTINENCE.
[2017-05-20] MEDS: MEMANTINE 10 MG TAB PO SCH (09:11)
[2017-05-20] MEDS: amLODIPine 5 MG TAB PO SCH (09:11)
[2017-05-20 10:41] VITALS: BP 150/75
--- NOTE | 2017-05-20 12:45 | NUR ---
PATIENT SITTING UP IN BED, REMAINS WITHOUT EVIDENCE OF DISTRESS. FLACC SCORE REMAINS 0. KEPT CLEAN AND DRY.
--- NOTE | 2017-05-20 13:26 | NUR ---
ORDER FOR HOSPICE ROMELIA CONROY. CALLED LELA AT [facility], . SHE SAID TO FAX INFORMATION TO HER AT [phone], WHICH I DID.
--- NOTE | 2017-05-20 14:16 | NUR ---
05/20/17 RD FOLLOW UP COMPLETED PLEASE REFER TO NUTRITION PROGRESS NOTE UNDER CARE ACTIVITY FOR ESTIMATED NUTRITION NEEDS. RD RECOMMENDATIONS: CONTINUE REGULAR DIET TOLERATED. - ENCOURAGE INCREASE PO INTAKES 2. RD WILL F/U 3-5 DAYS; MODERATE RISK OCTAVIO BENDER RD
--- NOTE | 2017-05-20 14:36 | NUR ---
RECEIVED A CALL FROM TORY FROM [facility]. ROMELIA WILL MEET WITH THE AT BEDSIDE AT 3:30P.M. TODAY.
[2017-05-20 17:00] VITALS: BP 126/62
--- NOTE | 2017-05-20 18:55 | NUR ---
PATIENT REMAINS WITHOUT EVIDENCE OF DISTRESS THIS SHIFT. INTERVIEWED BY ROMELIA BINDING CUTTER FOR POSSIBLE PLACEMENT AND REMAINS AT BEDSIDE VISITING WITH PATIENT.
--- NOTE | 2017-05-20 19:30 | NUR ---
RECEIVED PT REPORT FROM DAY SHIFT NURSE FOR CONTINUITY OF CARE. PT AWAKE AO X1. NO S/S OF DISTRESS. PT ON RA. NO SOB. NO PAIN NOTED AT THIS TIME. BED LOWERED CALL LIGHT WITHIN REACH WILL CONTINUE TO MONITOR.
--- NOTE | 2017-05-20 19:33 | NUR ---
PATIENT REMAINS WITHOUT EVIDENCE OF DISTRESS. NOW MUCH MORE AWAKE AND AMBULATING UNIT. REPORT GIVEN TO FRANCY DRIVE IN TELLER RN.
--- NOTE | 2017-05-20 20:30 | NUR ---
MEDICATED PATIENT. AND GAVE APPLESAUCE PT IS AWAKE. NO S/S OF DISTRESS. NO SOB WILL CONTINUE TO MONITOR.
--- NOTE | 2017-05-20 22:33 | NUR ---
CHANGED PATIENT DIAPER. PT HAD BOWEL MOVEMENT. WILL CONTINUE TO MONITOR.
[2017-05-21] VITALS: BP 126/81
--- NOTE | 2017-05-21 00:40 | NUR ---
ASSESSED PATIENT. PATIENT IS SLEEPING. NO S/S OF DISTRESS. NO SOB. WILL CONTINUE TO MONITOR.
[2017-05-21] MEDS: HYDRAGUARD CREAM TP SCH ×2 (01:01→13:30)
--- NOTE | 2017-05-21 03:54 | NUR ---
ASSESSED PATIENT. PATIENT IS SLEEPING. NO SOB. NO S/S OF DISTRESS. WILL CONTINUE TO MONITOR
--- NOTE | 2017-05-21 06:00 | NUR ---
ASSESSED PT. ASSESSED IF SOILED DIAPER. PATIENT IS DRY. AND SLEEPING. WILL CONTINUE TO MONITOR. NO SOB. NO S/S OF DISTRESS.
[2017-05-21] MEDS: QUEtiapine FUMARATE 25 MG TAB PO SCH ×2 (06:32→21:24)
--- NOTE | 2017-05-21 07:32 | NUR ---
ENDORSED PT, IN STABLE CONDITION, TO DAY SHIFT KEILA HERNANDEZ FOR CONTINUITY OF CARE. Addendum: 05/21/17 at 0732 by Mary Griffin RN DIDN'T ENDORSE TO KEILA. ENDORSED TO ALFREDO SANTACRUZ.
--- NOTE | 2017-05-21 07:33 | NUR ---
RECEIVED REPORT FROM WAGE AND HOUR INVESTIGATOR NURSE. PT IS SLEEPING IN BED, SEMI FOWLERS POSITION, PT EASILY AWAKEN, PT IS AAOX1, AMBULATORY, PT HAS NO IV ACCESS AT THIS TIME, PT HAS INCONTINENT DERMATITIS, PT HAS BILATERAL LOWER EXT. ERYTHEMA, NO S/S OF RESPIRATORY DISTRESS OR DISCOMFORT NOTED, DISCUSSED PLAN OF CARE WITH PT, PT UNABLE TO COMPREHEND. CALL LIGHT IS WITHIN REACH, WILL CONTINUE TO MONITOR.
[2017-05-21 08:00] VITALS: BP 118/72
[2017-05-21] MEDS: amLODIPine 5 MG TAB PO SCH (09:07)
--- NOTE | 2017-05-21 12:19 | NUR ---
PT SITTING ON BEDSIDE EATING LUNCH AT THIS TIME.
--- NOTE | 2017-05-21 14:22 | NUR ---
PT IS LYING ON THE BED, SLEEPING. NO SIGNS OF DISTRESS NOTED AT THIS TIME. SIDE RAILS UP. WILL CONTINUE TO MONITOR.
[2017-05-21 16:00] VITALS: BP 124/61
--- NOTE | 2017-05-21 16:30 | NUR ---
PT IS LYING ON THE BED, AWAKE, VITAL SIGNS TAKEN, NO SIGNS OF DISTRESS NOTED. WILL CONTINUE TO MONITOR.
--- NOTE | 2017-05-21 18:00 | NUR ---
PT IS SEATED ON THE BED AND EATING HIS DINNER. NO UNTOWARD SIGNS NOTED AT THIS TIME. WILL MONITOR.
--- NOTE | 2017-05-21 19:26 | NUR ---
ENDORSED PT TO WASTEWATER TREATMENT PLANT OPERATOR NURSESAROJ FOR CONTINUITY OF CARE. PT IS STABLE AT THIS TIME.
--- NOTE | 2017-05-21 19:35 | NUR ---
RECEIVED REPORT FROM DAY SHIFT RN, PATIENT IS WALKING AROUND THE NURSE'S STATION WITH THE PHONE SCREENER, NO S/S OF DISTRESS NOTED, RESPIRATION EVEN AND UNLABORED, NO IV ACCESS AT THIS TIME. SAFETY MEASURE ENSURED, WILL CONTINUE TO MONITOR.
--- NOTE | 2017-05-21 21:29 | NUR ---
DUE MEDICATION GIVEN, PATIENT TOLERATED WELL. NO S/S OF DISTRESS NOTED, PATIENT IS WANDERING INSIDE THE ROOM. WILL CONTINUE TO MONITOR.
[2017-05-22] VITALS: BP 116/73
--- NOTE | 2017-05-22 00:10 | NUR ---
VITAL SIGNS STABLE, PATIENT RESTING IN BED, NO S/S OF DISTRESS NOTED, RESPIRATION EVEN AND UNLABORED, CALL LIGHT WITHIN REACH, SAFETY MEASURE ENSURED, WILL CONTINUE TO MONITOR.
[2017-05-22] MEDS: HYDRAGUARD CREAM TP SCH ×2 (00:26→13:00)
--- NOTE | 2017-05-22 02:55 | NUR ---
PATIENT IS SLEEPING, NO S/S OF DISTRESS NOTED, RESPIRATION EVEN AND UNLABORED, CALL LIGHT WITHIN REACH, SAFETY MEASURE ENSURED, WILL CONTINUE TO MONITOR.
--- NOTE | 2017-05-22 06:36 | NUR ---
PATIENT IS SLEEPING, NO S/S OF DISTRESS NOTED, RESPIRATION EVEN AND UNLABORED, CALL LIGHT WITHIN REACH, SAFETY MEASURE ENSURED, WILL CONTINUE TO MONITOR.
--- NOTE | 2017-05-22 07:17 | NUR ---
ENDORSED PLAN OF CARE TO DAY SHIFT RN. PATIENT IS IN STABLE CONDITION.
--- NOTE | 2017-05-22 07:20 | NUR ---
RECEIVED REPORT FROM INTERSTATE BUS DISPATCHER NURSE. PT IS SLEEPING IN BED, SEMI FOWLERS POSITION, PT EASILY AWAKEN, PT IS AAOX1, AMBULATORY, PT HAS NO IV ACCESS AT THIS TIME, PT HAS INCONTINENT DERMATITIS, PT HAS BILATERAL LOWER EXT. ERYTHEMA, NO S/S OF RESPIRATORY DISTRESS OR DISCOMFORT NOTED, DISCUSSED PLAN OF CARE WITH PT, PT UNABLE TO COMPREHEND. CALL LIGHT IS WITHIN REACH, WILL CONTINUE TO MONITOR.
[2017-05-22 08:00] VITALS: BP 126/63
[2017-05-22] MEDS: amLODIPine 5 MG TAB PO SCH (08:25)
--- NOTE | 2017-05-22 08:30 | NUR ---
PT IS SITTING UP IN BED EATING BREAKFAST AT THIS TIME.
--- NOTE | 2017-05-22 10:20 | NUR ---
PT IS SLEEPING IN BED AT THIS TIME.
--- NOTE | 2017-05-22 12:00 | NUR ---
PT IS SITTING UP IN BED EATING LUNCH. ALL NEEDS ARE MET.
--- NOTE | 2017-05-22 15:30 | NUR ---
PT IS BEING PUSHED WHILE ON WHEELCHAIR AROUND NURSES STATION BY WATERPROOF BAG SEWER.
[2017-05-22 16:00] VITALS: BP 98/79
--- NOTE | 2017-05-22 16:47 | NUR ---
CALLED BETH FROM [facility]. SHE IS HAVING DIFFICULTY GETTING SNF FOR A MEDICAL PENDING.
--- NOTE | 2017-05-22 17:00 | NUR ---
PT WALKING AROUND IN HIS ROOM, NO S/S OF RESPIRATORY DISTRESS OR DISCOMFORT NOTED, WILL CONTINUE TO MONITOR.
--- NOTE | 2017-05-22 19:25 | NUR ---
ENDORSED PT TO REGISTERED NURSE TEACHER NURSE FOR CONTINUITY OF CARE. PT STABLE AT THIS TIME.
--- NOTE | 2017-05-22 19:26 | NUR ---
RECEIVED REPORT FROM DAY SHIFT RN, PT IS A/OX1, ON ROOM AIR. NO IV ACCESS. PT SEEMS LETHARGIC, SKIN IS INTACT, BUT THERE IS EDEMA AND ERYTHEMA TO LOWER EXTREMITIES, BILATERALLY. UPDATED BOARD. VITAL SIGNS WITHIN NORMAL LIMITS. PT IN STABLE CONDITION, NO SIGNS OF DISTRESS NOTED. BED IN LOWEST POSITION, CALL LIGHT WITHIN REACH. WILL CONTINUE TO MONITOR. Addendum: 05/23/17 at 0345 by Mary Griffin RN WRONG INPUT, PLEASE DISREGARD.
[2017-05-22 20:00] VITALS: BP 124/86
[2017-05-22] MEDS: QUEtiapine FUMARATE 25 MG TAB PO SCH (21:06)
--- NOTE | 2017-05-22 22:45 | NUR ---
RECEIVED REPORT FROM REGISTRY NURSE, PT IS A/OX1, ON ROOM AIR. NO IV ACCESS. PT SEEMS LETHARGIC, SKIN IS INTACT, BUT THERE IS EDEMA AND ERYTHEMA TO LOWER EXTREMITIES, BILATERALLY. UPDATED BOARD. VITAL SIGNS WITHIN NORMAL LIMITS. PT IN STABLE CONDITION, NO SIGNS OF DISTRESS NOTED. BED IN LOWEST POSITION, CALL LIGHT WITHIN REACH. WILL CONTINUE TO MONITOR.
--- NOTE | 2017-05-23 | NUR ---
VITAL SIGNS WITHIN NORMAL LIMITS. PT IN STABLE CONDITION, NO SIGNS OF DISTRESS NOTED. BED IN LOWEST POSITION, CALL LIGHT WITHIN REACH. WILL CONTINUE TO MONITOR.
[2017-05-23] MEDS: HYDRAGUARD CREAM TP SCH ×2 (01:21→13:11)
--- NOTE | 2017-05-23 03:46 | NUR ---
VITAL SIGNS WITHIN NORMAL LIMITS. PT IN STABLE CONDITION, NO SIGNS OF DISTRESS NOTED. BED IN LOWEST POSITION, CALL LIGHT WITHIN REACH. WILL CONTINUE TO MONITOR.
--- NOTE | 2017-05-23 06:51 | NUR ---
PT IN STABLE CONDITION, NO SIGNS OF DISTRESS NOTED. BED IN LOWEST POSITION, CALL LIGHT WITHIN REACH. WILL CONTINUE TO MONITOR.
--- NOTE | 2017-05-23 07:31 | NUR ---
ENDORSED PT TO DAY SHIFT RN FOR CONTINUITY OF CARE. PT IN STABLE CONDITION.
--- NOTE | 2017-05-23 07:32 | NUR ---
RECEIVED REPORT FROM PRODUCTION SUPERINTENDENT NURSE AT BEDSIDE FOR CONTINUITY OF CARE. PATIENT STABLE IN ROOM AMBULATING. AMBULATION STABLE. WILL CONT TO MONITOR.
[2017-05-23 08:00] VITALS: BP 130/74
--- NOTE | 2017-05-23 08:00 | NUR ---
INITIAL ASSESSMENT PERFORMED. PATIENT ALERT APHASIC BUT SOMETIMES REPEATS WORDS.NO ACUTE DISTRESS NOTED. NO SOB. LUNG SOUNDS CLEAR. BOWEL SOUNDS ACTIVE. NO IV ACCESS. PLAN OF CARE DISCUSSED WITH PATIENT AT BEDSIDE. PERINEAL TREATMENT OF HYDRAGUARD FOR INCONTINENCE CARE. FREQUENT VISUAL CHECKS.REORIENTED PATIENT TO ROOM. CALL LIGHT WITHIN REACH. WILL CONT TO MONITOR.
[2017-05-23] MEDS: amLODIPine 5 MG TAB PO SCH (08:50)
--- NOTE | 2017-05-23 10:30 | NUR ---
PATIENT PULLED DOWN DIAPER AND URINATED ON FLOOR . CHANGED AND CLEANED PATIENT . HAD HOUSEKEEPING CLEAR ROOM AND HAD PATIENT SIT IN BED WHILE SHE CLEANED . PATIENT WITH NEW NON SKID SOCKS ON. WILL CONT TO MONITOR.
--- NOTE | 2017-05-23 12:45 | NUR ---
PT IN ROOM HAVING LUNCH . TOLERATING WELL. NO ACUTE DISTRESS NOTED. PATIENT IN [employer] SMILING AND WAVING . WILL CONT TO MONITOR.
--- NOTE | 2017-05-23 14:35 | NUR ---
PATIENT IN ROOM SITTING IN BED. PATIENT DIGGING THROUGH TRASH . REDIRECTED PATIENT WILL CONT TO MONITOR.
[2017-05-23 16:00] VITALS: BP 132/72
--- NOTE | 2017-05-23 16:30 | NUR ---
PROVIDED PERICARE TO PT. PATIENT WITH LARGE BM. PATIENT TOLERATED PERICARE AND CHANGING WELL. FREQUENT VISUAL CHECKS WILL CONT TO MONITOR.
--- NOTE | 2017-05-23 19:10 | NUR ---
ENDORSED REPORT TO CUSTOMS COMPLIANCE DIRECTOR NURSE AT BEDSIDE FOR CONTINUITY OF CARE. PATIENT STABLE.
--- NOTE | 2017-05-23 19:11 | NUR ---
RECD. AMBULATING INSIDE HIS R00M, A/OX1, SELDOM SPEAKS. KEEP ON TOUCHING THINGS INSIDE HIS ROOM. REORIENTED TO HOSPITAL SETTING. PLAN OF CARE FOR THE SHIFT DISCUSSED. NEEDS REINFORCEMENT. NO APPEARANCE OF PAIN NOTED 0/10.
--- NOTE | 2017-05-23 20:00 | NUR ---
Patient's Plan of Care was discussed and reviewed with HERBIE: LORENA
[2017-05-23] MEDS: QUEtiapine FUMARATE 25 MG TAB PO SCH (21:31)
--- NOTE | 2017-05-23 21:31 | NUR ---
DUE PO MEDICATION GIVEN WITH APPLE SAUCE. TOLERATED WELL.
--- NOTE | 2017-05-23 23:00 | NUR ---
CLEANSED AND BEDDINGS CHANGED. ASSISTED TO LAY DOWN IN BED AND GO TO SLEEP, COOPERATIVE.
[2017-05-24] VITALS: BP 138/71
--- NOTE | 2017-05-24 | NUR ---
SLEEPING COMFORTABLY IN BED.
[2017-05-24] MEDS: HYDRAGUARD CREAM TP SCH ×2 (00:37→13:44)
--- NOTE | 2017-05-24 05:30 | NUR ---
WOKE UP EARLY, AMBULATING INSIDE HIS ROOM.
--- NOTE | 2017-05-24 07:15 | NUR ---
SITTING ON BED, CALM AND NO AGITATION. ENDORSED TO AM NURSE FOR CONTINUITY OF CARE.
--- NOTE | 2017-05-24 07:16 | NUR ---
RECEIVED REPORT FROM SECURITY COMPLIANCE ENGINEER NURSE AT BEDSIDE FOR CONTINUITY OF CARE. PATIENT STABLE SLEEPING IN BED.
[2017-05-24 08:00] VITALS: BP 137/76
--- NOTE | 2017-05-24 08:00 | NUR ---
INITIAL ASSESSMENT PERFORMED. PATIENT ALERT BUT APHASIC WITH OCCASIONAL SINGLE WORDS.NO ACUTE DISTRESS NOTED. NO SOB. LUNG SOUNDS CLEAR. BOWEL SOUNDS ACTIVE. NO IV ACCESS. PLAN OF CARE DISCUSSED WITH PATIENT AT BEDSIDE. SKIN INTACT. FREQUENT VISUAL CHECKS. PATIENT IN ROOM SITING ON BED.REORIENTED PATIENT TO ROOM. CALL LIGHT WITHIN REACH. WILL CONT TO MONITOR.
[2017-05-24] MEDS: amLODIPine 5 MG TAB PO SCH (08:55)
--- NOTE | 2017-05-24 08:55 | NUR ---
ADMINISTERED SCHEDULED MEDICATIONS. PATIENT TOLERATED WELL. PATIENT IN BED AT THIS TIME RESTING.
--- NOTE | 2017-05-24 10:00 | NUR ---
PATIENT IN ROOM WALKING AROUND. NO ACUTE DISTRESS. FLACC 0. WILL CONT TO MONITOR
--- NOTE | 2017-05-24 12:13 | NUR ---
PATIENT IN ROOM EATING LUNCH AT THIS TIME SITTING ON BED. NO ACUTE DISTRESS NOTED. WILL CONT TO MONITOR.
--- NOTE | 2017-05-24 14:00 | NUR ---
PATIENT WALKING AROUND IN ROOM. NO ACUTE DISTRESS NOTED. FLACC 0. WILL CONT TO MONITOR.
--- NOTE | 2017-05-24 15:59 | NUR ---
GATHERED PATIENT VS. VSS. NO ACUTE DISTRESS. FLACC 0. WILL CONT TO MONITOR.
[2017-05-24 16:00] VITALS: BP 144/96
--- NOTE | 2017-05-24 17:30 | NUR ---
AMBULATED WITH PATIENT DOWN HALLS UNTIL DINNER ARRIVED THEN SET PATIENT UP FOR DINNER. PT TOLERATED WALK WELL. SLOW STEADY GAIT.
--- NOTE | 2017-05-24 19:08 | NUR ---
RECD. AMBULATING INSIDE HIS ROOM. A/OX1, RESPIRATION EVEN AND UNLABORED. KEEP ON TOUCHING EVERYTHING WHATEVER CATCHES HIS ATTENTION. SEEMS UPSET, WANTS TO GET OUT OF ROOM AND WANDER OUTSIDE. REORIENTED TO HOSPITAL SETTING. NODS HEAD. PLAN OF CARE FOR THE SHIFT DISCUSSED. UNABLE TO COMPREHEND. NO APPEARANCE OF PAIN NOTED 0/10.
--- NOTE | 2017-05-24 19:08 | NUR ---
ENDORSED REPORT TO TAXI SERVICER NURSE AT BEDSIDE NURSE FOR CONTINUITY OF CARE. PATIENT STABLE.
[2017-05-24] MEDS: QUEtiapine FUMARATE 25 MG TAB PO SCH (21:10)
--- NOTE | 2017-05-24 21:10 | NUR ---
DUE PO MEDICATION GIVEN WITH APPLE SAUCE.
--- NOTE | 2017-05-24 22:00 | NUR ---
SEEMS SLEEPY, CLEANSED AND ASSISTED TO GO TO BED WITH HELP OF FOLLOW UP SPECIALIST. COOPERATIVE.
[2017-05-25] VITALS: BP 131/59
--- NOTE | 2017-05-25 | NUR ---
STILL SLEEPING COMFORTABLY.
[2017-05-25] MEDS: HYDRAGUARD CREAM TP SCH ×2 (01:31→13:00)
--- NOTE | 2017-05-25 04:00 | NUR ---
NO DISTRESS NOTED. SLEEPING IN BED, SAFETY MAINTAINED.
--- NOTE | 2017-05-25 06:15 | NUR ---
AWAKE STANDING BESIDE BED, VOIDED A LOT OF URINE ON THE FLOOR. CLEANSED AND CHANGED DIAPER. CALLED HOUSE KEEPING TO CLEAN FLOOR.
--- NOTE | 2017-05-25 06:25 | NUR ---
ABLE TO SLEEP WELL. CONDITION REMAIN STABLE. WILL ENDORSE TO AM NURSE FOR CONTINUITY OF CARE.
--- NOTE | 2017-05-25 07:15 | NUR ---
ENDORSED TO AM NURSES FOR CONTINUITY OF CARE.
[2017-05-25 08:00] VITALS: BP 135/72
--- NOTE | 2017-05-25 09:16 | NUR ---
RECEIVED REPORT FROM PM NURSE AT BEDSIDE. PT STABLE , SITTING AT BED . SAFETY MEASURES IN PLACE. WILL CONTINUE TO MONITOR.
[2017-05-25] MEDS: amLODIPine 5 MG TAB PO SCH (09:57)
--- NOTE | 2017-05-25 14:48 | NUR ---
05/25/17 RD FOLLOW UP COMPLETED PLEASE REFER TO NUTRITION PROGRESS NOTE UNDER CARE ACTIVITY FOR ESTIMATED NUTRITION NEEDS. RD RECOMMENDATIONS: 1. CONTINUE REGULAR DIET TOLERATED - PT MEETING ADEQUATE NEEDS 2. RD WILL F/U 5-7 DAYS; LOW RISK. OCTAVIO BENDER RD
[2017-05-25 16:00] VITALS: BP 135/77
--- NOTE | 2017-05-25 19:17 | NUR ---
ENDORSED PATIENT TO PROOFING MACHINE OPERATOR RN FOR CONTINUITY OF CARE. PATIENT IN STABLE CONDITION.
--- NOTE | 2017-05-25 19:18 | NUR ---
RECEIVED BEDSIDE REPORT FROM DAY SHIFT NURSE PILY RN, PT STABLE, NO DISTRESS NOTED, PT HAS NO IV ACCESS, PT ON ROOM AIR NO SOB, PT AMBULATING INSIDE HIS ROOM, TOLERATED WELL, INITIAL ASSESSMENT DONE, ALL SAFETY PRECAUTION MET, WILL CONTINUE TO MONITOR.
[2017-05-25] MEDS: QUEtiapine FUMARATE 25 MG TAB PO SCH (20:47)
--- NOTE | 2017-05-25 20:47 | NUR ---
DUE MEDICATION GIVEN, PT TOLERATED WELL, NO DISTRESS NOTED, CALL LIGHT WITHIN REACH, WILL CONTINUE TO MONITOR.
--- NOTE | 2017-05-25 22:10 | NUR ---
CHECKED ON PT, PT SLEEPING ON CHAIR, NO DISTRESS NOTED, ATTEMPT TO MOVE PT TO BED, PT REFUSED. WILL CONTINUE TO MONITOR.
--- NOTE | 2017-05-25 23:50 | NUR ---
WITH HELP OF GAMBRELER HELPER MOVED PT TO BED, PT AMBULATED TO BED, LAY DOWN AND SLEEP, NO DISTRESS NOTED, CALL LIGHT WITHIN REACH, WILL CONTINUE TO MONITOR.
[2017-05-26] VITALS: BP 149/70
[2017-05-26] MEDS: HYDRAGUARD CREAM TP SCH ×2 (01:06→13:00)
--- NOTE | 2017-05-26 03:34 | NUR ---
CHECKED ON PT, PT SLEEPING ON BED, CALM AND COOPERATIVE, NO DISTRESS NOTED, CALL LIGHT WITHIN REACH, WILL CONTINUE TO MONITOR
--- NOTE | 2017-05-26 05:22 | NUR ---
PT WOKE UP AND URINATED ON THE FLOOR, THEN WENT BACK TO BED TO SLEEP, PT STABLE, NO DISTRESS NOTED, CALL LIGHT WITHIN REACH, WILL CONTINUE TO MONITOR.
--- NOTE | 2017-05-26 07:18 | NUR ---
RECEIVED BEDSIDE REPORT FROM NIGHTSHIFT NURSE AT BEDSIDE. PATIENT IS ASLEEP AT THIS TIME IN SEMI-FOWLERS POSITION. PATIENT FLACC SCORE IS 0. NO SIGNS OF RESPIRATORY DISTRESS OR RESPIRATORY DEPRESSION. PATIENT BED IN LOWEST POSITION. UPDATED BOARD IN PATIENT'S ROOM. APPROPRIATE SIGNS OUTSIDE OF PATIENTS ROOM. WILL CONTINUE TO MONITOR PATIENT.
--- NOTE | 2017-05-26 07:18 | NUR ---
ENDORSED PLANS OF CARE TO DAY SHIFT NURSE ALEXANDRA RN, PT STABLE, NO DISTRESS NOTED, CALL LIGHT WITHIN REACH.
[2017-05-26 08:00] VITALS: BP 118/77
[2017-05-26] MEDS: amLODIPine 5 MG TAB PO SCH (09:31)
--- NOTE | 2017-05-26 09:38 | NUR ---
GAVE AM MEDICATIONS TO PATIENT. PATIENT TOLERATED WELL. PATIENT IS SITTING IN CHAIR BY BEDSIDE. WILL CONTINUE TO MONITOR PATIENT.
--- NOTE | 2017-05-26 10:47 | NUR ---
PATIENT HAD A BOWEL MOVEMENT. CLEANED PATIENT WITH LITHOPONE MILL WORKER. PATIENT TOLERATED WELL.
--- NOTE | 2017-05-26 11:37 | NUR ---
PATIENT RESTING IN BED. FLACC SCORE IS 0. NO SIGNS OF RESPIRATORY DISTRESS OR RESPIRATORY DEPRESSION. WILL CONTINUE TO MONITOR PATIENT.
--- NOTE | 2017-05-26 13:35 | NUR ---
PATIENT RESTING IN BED. FLACC SCORE IS 0. NO SIGNS OF RESPIRATORY DISTRESS OR RESPIRATORY DEPRESSION. WILL CONTINUE TO MONITOR PATIENT.
--- NOTE | 2017-05-26 15:00 | NUR ---
PATIENT SITTING IN CHAIR. PATIENT SHOWS NO SIGNS OF RESPIRATORY DISTRESS OR RESPIRATORY DEPRESSION. PATIENT FLACC SCORE IS 0. WILL CONTINUE TO MONITOR PATIENT.
--- NOTE | 2017-05-26 15:13 | NUR ---
0900 RECEIVED CALL FROM BETH AT [facility] AND SHE STATED THAT THEY HAVE BEEN TRYING TO FIND A SNF FOR PT BUT UNABLE TO FIND ANY FACILITY WILLING TO TAKE PT UNTIL MCAL IS FINAL. PER BARBARA HE HAS TALKED TO THE [facility]AL WORKER FOR PT AND SHE HAS INFORMED HER THAT THEY ARE IN PROCESS WITH THE [facility] APPLICATION AND THEY HAVE UNTIL THE May TO FINALIZE.
[2017-05-26 16:00] VITALS: BP 130/72
--- NOTE | 2017-05-26 17:43 | NUR ---
PATIENT RESTING IN BED AT THIS TIME. FLACC SCORE IS 0. NO RESPIRATORY DISTRESS OR RESPIRATORY DEPRESSION.
--- NOTE | 2017-05-26 19:21 | NUR ---
GAVE REPORT TO NIGHTSHIFT NURSE AT BEDSIDE. PATIENT IN STABLE CONDITION.
--- NOTE | 2017-05-26 19:30 | NUR ---
ASSUMED CARE OF PATIENT, AWAKE, WALKING AROUND THE ROOM. CONFUSED. NO DISTRESS OR DISCOMFORT. CARE BOARD UPDATED. CALL LIGHT WITHIN REACH.
[2017-05-26] MEDS: QUEtiapine FUMARATE 25 MG TAB PO SCH (21:01)
[2017-05-26 23:59] VITALS: BP 132/82
[2017-05-27] MEDS: HYDRAGUARD CREAM TP SCH ×2 (00:04→13:00)
--- NOTE | 2017-05-27 00:04 | NUR ---
AWAKE, VITAL SIGNS STABLE. NO COMPLAIN, NO DISTRESS NOTED. CALL LIGHT WITHIN REACH. AMBULATING INSIDE ROOM.
--- NOTE | 2017-05-27 07:30 | NUR ---
RECEIVED REPORT FROM NIGHTSHIFT NURSE AT BEDSIDE. PATIENT IS ASLEEP IN SEMI FOWLERS POSITION. PATIENT FLACC SCORE IS 0. NO RESPIRATORY DISTRESS OR RESPIRATORY DEPRESSION. PATIENT BED IS IN LOWEST POSITION. UPDATED BOARD IN PATIENTS ROOM. APPROPRIATE SIGNS OUTSIDE OF PATIENT'S ROOM. WILL CONTINUE TO MONITOR PATIENT.
--- NOTE | 2017-05-27 07:31 | NUR ---
ENDORSED CARE AT BEDSIDE WITH ALEXANDRA RN, PATIENT IN STABLE CONDITION.
[2017-05-27 08:00] VITALS: BP 125/77
--- NOTE | 2017-05-27 08:50 | NUR ---
PATIENT RESTING IN BED. NO RESPIRATORY DISTRESS OR RESPIRATORY DEPRESSION. WILL CONTINUE TO MONITOR PATIENT.
[2017-05-27] MEDS: amLODIPine 5 MG TAB PO SCH (10:42)
--- NOTE | 2017-05-27 11:06 | NUR ---
PATIENT SITTING ON THE CHAIR AT BEDSIDE. FLACC SCORE IS 0. NO RESPIRATORY DISTRESS OR RESPIRATORY DEPRESSION. WILL CONTINUE TO MONITOR PATIENT.
--- NOTE | 2017-05-27 14:08 | NUR ---
PATIENT SLEEPING IN BED AT THIS TIME. NO COMPLAINTS OF PAIN. WILL CONTINUE TO MONITOR PATIENT.
--- NOTE | 2017-05-27 15:24 | NUR ---
PATIENT IS SITTING IN THE BEDSIDE CHAIR AT THIS TIME. FLACC SCORE IS 0. NO RESPIRATORY DISTRESS OR RESPIRATORY DEPRESSION. WILL CONTINUE TO MONITOR PATIENT.
[2017-05-27 16:00] VITALS: BP 128/66
--- NOTE | 2017-05-27 17:01 | NUR ---
RECEIVED A CALL FROM DAVE BACON JR. SON IS UNAWARE OF PATIENT BEING AT THE HOSPITAL. CALL BACK NUMBER FOR SON IS [phone]
--- NOTE | 2017-05-27 19:13 | NUR ---
GAVE REPORT TO NIGHTSHIFT NURSE AT BEDSIDE. PATIENT IN STABLE CONDITION.
--- NOTE | 2017-05-27 19:14 | NUR ---
RECD. SITTING ON CHAIR, A/OX1. RESPIRATION EVEN AND UNLABORED. SON AT THE BEDSIDE. STATED PATIENT MISTAKE HIM FOR HIS BROTHER. PLAN OF CARE FOR THE SHIFT DISCUSSED WITH PATIENT AND SON. NEEDS REINFORCEMENT, SON UNDERSTAND. NO APPEARANCE OF PAIN NOTED 0/10. SAFETY MEASURES ENFORCED.
--- NOTE | 2017-05-27 20:00 | NUR ---
Patient's Plan of Care was discussed and reviewed with AUTO ADJUDICATION SPECIALIST: Gifty BARBER
[2017-05-27] MEDS: QUEtiapine FUMARATE 25 MG TAB PO SCH (21:28)
--- NOTE | 2017-05-27 21:28 | NUR ---
DUE PO MEDICATION GIVEN WITH APPLE SAUCE, TOLERATED WELL.
--- NOTE | 2017-05-27 23:00 | NUR ---
CLEANSED AND BEDDINGS CHANGED, ASSISTED BACK TO BED TO SLEEP, COOPERATIVE.
[2017-05-28] VITALS: BP 130/43
--- NOTE | 2017-05-28 | NUR ---
SLEEPING COMFORTABLY IN BED, BOTH BLE ELEVATED ON TWO PILLOWS.
[2017-05-28] MEDS: HYDRAGUARD CREAM TP SCH ×2 (01:35→12:27)
--- NOTE | 2017-05-28 04:30 | NUR ---
AWAKE, SITTING ON CHAIR BUT SEEMS SLEEPY. ASSISTED BACK TO BED, AND MADE COMFORTABLE WITH PILLOWS AND BLANKETS.
--- NOTE | 2017-05-28 07:25 | NUR ---
CONDITION REMAIN STABLE. ENDORSED TO AM NURSE FOR CONTINUITY OF CARE.
--- NOTE | 2017-05-28 07:29 | NUR ---
RECEIVED REPORT FROM PROFESSOR OF BIOLOGY NURSE AT BEDSIDE FOR CONTINUITY OF CARE. PATIENT IS ASLEEP SITTING IN CHAIR. PATIENT FLACC SCORE IS 0. PATIENT HAS NO IV ACCESS. NO RESPIRATORY DISTRESS OR SOB NOTED ON ROOM AIR. SAFETY PRECAUTION IN PLACE. UPDATED BOARD IN PATIENTS ROOM. APPROPRIATE SIGNS OUTSIDE OF PATIENT'S ROOM. WILL CONTINUE TO MONITOR PATIENT.
[2017-05-28 08:00] VITALS: BP 133/72
[2017-05-28] MEDS: amLODIPine 5 MG TAB PO SCH (08:25)
--- NOTE | 2017-05-28 08:25 | NUR ---
ADMINISTERED ORDERED MEDICATION. PATIENT TOLERATED IT WELL. NO SIGNS OF DISTRESS NOTED. FLACC-[address], CALL LIGHT WITHIN REACH, WILL CONTINUE TO MONITOR PATIENT.
--- NOTE | 2017-05-28 10:25 | NUR ---
PATIENT CLEANED AND CHANGED, HYDRAGUARD APPLIED. PATIENT NOW STANDING BY BED, NO SIGNS OF DISTRESS NOTED. FLACC-0. SAFETY PRECAUTION IN PLACE, CALL LIGHT WITHIN REACH, WILL CONTINUE TO MONITOR PATIENT.
--- NOTE | 2017-05-28 12:55 | NUR ---
PATIENT SITTING BY SIDE OF BED EATING LUNCH, NO SIGNS OF DISTRESS NOTED. FLACC-0. SAFETY PRECAUTION IN PLACE, CALL LIGHT WITHIN REACH, WILL CONTINUE TO MONITOR PATIENT.
--- NOTE | 2017-05-28 15:30 | NUR ---
PATIENT AMBULATED AROUND [facility] FLOOR ON STEADY GAIT ACCOMPANIED BY RN. NO SIGNS OF DISTRESS NOTED, FLACC-0. WILL CONTINUE TO MONITOR PATIENT.
[2017-05-28 16:00] VITALS: BP 130/74
--- NOTE | 2017-05-28 19:17 | NUR ---
PATIENT REPORT GIVEN TO CYBER SOFTWARE ENGINEER NURSE AT BEDSIDE FOR CONTINUITY OF CARE. PATIENT IN STABLE CONDITION.
--- NOTE | 2017-05-28 19:20 | NUR ---
RECEIVED PATIENT AWAKE WALKING AROUND THE ROOM. FALL PRECAUTION IMPLEMENTED. WILL CONTINUE TO MONITOR.
[2017-05-28 20:00] VITALS: BP 134/113
[2017-05-28] MEDS: QUEtiapine FUMARATE 25 MG TAB PO SCH (21:37)
--- NOTE | 2017-05-28 23:33 | NUR ---
SEEN PATIENT ASLEEP ON BED. CALL LIGHT WITHIN REACH. BED IN LOW POSITION. NO S/S OF DISTRESS AT THIS TIME. WILL CONTINUE TO MONITOR.
--- NOTE | 2017-05-29 00:23 | NUR ---
PATIENT SEEN AWAKE SITTING ON THE SIDE OF THE BED. ASKED THE RN CHILD TO PUT THE PATIENT BACK TO BED TO SLEEP BUT PATIENT REFUSE. FALL PRECAUTION IMPLEMENTED. CALL LIGHT WITHIN REACH. WILL CONTINUE TO MONITOR.
[2017-05-29] MEDS: HYDRAGUARD CREAM TP SCH ×2 (00:31→10:45)
--- NOTE | 2017-05-29 02:02 | NUR ---
ASSIST PATIENT BACK TO BED AND POSITION IN COMFORTABLE POSITION AND COVER BY WARM BLANKET, BED IN LOW POSITION WITH CALL LIGHT WITHIN REACH. WILL CONTINUE TO MONITOR.
--- NOTE | 2017-05-29 05:25 | NUR ---
AM CARE DONE. BED LINEN CHANGED. PATIENT SEEN SITTING IN THE CHAIR.
--- NOTE | 2017-05-29 07:15 | NUR ---
ENDORSEMENT GIVEN TO AM SHIFT NURSE. PATIENT IN STABLE CONDITION.
--- NOTE | 2017-05-29 07:16 | NUR ---
RECEIVED REPORT FROM NUCLEAR PLANT TECHNICAL ADVISOR NURSE AT BEDSIDE FOR CONTINUITY OF CARE. PATIENT IS ASLEEP SITTING IN CHAIR. PATIENT FLACC SCORE IS 0. PATIENT HAS NO IV ACCESS. NO RESPIRATORY DISTRESS OR SOB NOTED ON ROOM AIR. SAFETY PRECAUTION IN PLACE. UPDATED BOARD IN PATIENTS ROOM. APPROPRIATE SIGNS OUTSIDE OF PATIENT'S ROOM. WILL CONTINUE TO MONITOR PATIENT.
[2017-05-29 08:00] VITALS: BP 105/78
[2017-05-29] MEDS: amLODIPine 5 MG TAB PO SCH (09:23)
--- NOTE | 2017-05-29 09:23 | NUR ---
ADMINISTERED ORDERED MEDICATION. PATIENT TOLERATED IT WELL. NO SIGNS OF DISTRESS NOTED. FLACC-[address], CALL LIGHT WITHIN REACH, WILL CONTINUE TO MONITOR PATIENT.
--- NOTE | 2017-05-29 10:45 | NUR ---
PATIENT VOIDED ON THE FLOOR OF ROOM. PATIENT CLEANED AND CHANGED. HYDRAGUARD APPLIED. PATIENT TOLERATED IT. PATIENT FLACC SCORE IS 0. NO RESPIRATORY DISTRESS OR SOB NOTED ON ROOM AIR. SAFETY PRECAUTION IN PLACE. WILL CONTINUE TO MONITOR PATIENT.
--- NOTE | 2017-05-29 15:15 | NUR ---
PATIENT AMBULATED AROUND THE MED-SURG UNIT ON STEADY GAIT, ACCOMPANIED BY SENIOR PROJECT MANAGER ENGINEERING. PATIENT FLACC SCORE IS 0. PATIENT HAS NO IV ACCESS. NO RESPIRATORY DISTRESS OR SOB NOTED. WILL CONTINUE TO MONITOR PATIENT.
[2017-05-29 16:00] VITALS: BP 148/69
--- NOTE | 2017-05-29 17:45 | NUR ---
PATIENT SITTING IN CHAIR EATING DINNER. NO SIGNS OF DISTRESS OR SOB NOTED. FLACC-0. SAFETY PRECAUTION IN PLACE, WILL CONTINUE TO MONITOR PATIENT.
--- NOTE | 2017-05-29 19:05 | NUR ---
RECEIVED PATIENT REPORT AT BEDSIDE. PT STABLE, NO DISTRESS NOTED, PT HAS NO IV ACCESS, PT ON ROOM AIR NO SOB, PT AMBULATING INSIDE HIS ROOM. WILL CONTINUE TO MONITOR
--- NOTE | 2017-05-29 19:19 | NUR ---
REPORT GIVEN TO COPIER OPERATOR NURSE AT BEDSIDE FOR CONTINUITY OF CARE. ENDORSED REQUEST TO DR. LINARES ABOUT PODIATRY CONSULT FOR PATIENT FOR HIS TOENAILS. PATIENT IN STABLE CONDITION.
[2017-05-29 20:00] VITALS: BP 94/61
[2017-05-29] MEDS: QUEtiapine FUMARATE 25 MG TAB PO SCH (21:23)
--- NOTE | 2017-05-30 00:32 | NUR ---
PATIENT ASLEEP IN BED. NO S/S OF DISTRESS. WILL CONTINUE TO MONITOR
[2017-05-30] MEDS: HYDRAGUARD CREAM TP SCH ×2 (01:44→13:02)
--- NOTE | 2017-05-30 03:00 | NUR ---
RECEIVED REPORT FROM NURSE VELAZQUEZ RN, PT STABLE, NO DISTRESS NOTED, PT SLEEPING CALMLY ON BED, WILL CONTINUE TO MONITOR.
--- NOTE | 2017-05-30 05:10 | NUR ---
PT GOT OUT OF BED AND URINATED ON THE FLOOR, CLEANED THE PT AND THE ROOM, PT WENT BACK TO BED, NO DISTRESS NOTED, CALL LIGHT WITHIN REACH, WILL CONTINUE TO MONITOR.
--- NOTE | 2017-05-30 07:20 | NUR ---
ENDORSED PLAN OF CARE TO DAY SHIFT NURSE MANJEET HERNANDEZ, PT STABLE, NO DISTRESS NOTED, CALL LIGHT WITHIN REACH.
--- NOTE | 2017-05-30 07:21 | NUR ---
RECEIVED REPORT FROM SPICE MILLER NURSE FRANCY AT BEDSIDE FOR CONTINUITY OF CARE. PT IS AWAKE AND ORIENTED X1. INTRODUCED SELF AND UPDATED BOARD. PT IS SITTING UP IN CHAIR. NO SIGNS OF DISTRESS. PT IS CALM. WILL CONTINUE TO MONITOR.
[2017-05-30 08:00] VITALS: BP 109/75
--- NOTE | 2017-05-30 10:00 | NUR ---
PT HAD LARGE INCONTINENT BM ON FLOOR. FOUND PT EATING STOOL. REMOVED STOOL FROM HAND AND CLEANED STOOL FROM FLOOR. CLEANED AND BATHED PT. CHANGED DIAPER. ASSISTED PT TO CHAIR. ADMINISTERED PO MED. TOLERATED WELL. NO SIGNS OF DISTRESS. WILL CONTINUE TO MONITOR.
[2017-05-30] MEDS: amLODIPine 5 MG TAB PO SCH (10:31)
--- NOTE | 2017-05-30 12:15 | NUR ---
PT EATING LUNCH TRAY. SITTING IN CHAIR. CALM RIGHT NOW. NO SIGNS OF DISTRESS. WILL CONTINUE TO MONITOR.
--- NOTE | 2017-05-30 13:25 | NUR ---
CALLED DR. LINARES AND REPORTED PT HAS LONG TOENAILS. NO ORDERS RECEIVED SAID SHE WILL SEE HIM ON THURSDAY.
--- NOTE | 2017-05-30 14:24 | NUR ---
PT SITTING UP IN CHAIR. SLEEPING. NO SIGNS OF DISTRESS. WILL CONTINUE TO MONITOR.
[2017-05-30 16:00] VITALS: BP 136/73
--- NOTE | 2017-05-30 16:03 | NUR ---
PT HAD INCONTINENT URINE ON FLOOR. CHANGED DIAPER AND GOWN. EVS CLEANING ROOM. PT CALM AND AWAKE. NO SIGNS OF DISTRESS. WILL CONTINUE TO MONITOR.
--- NOTE | 2017-05-30 19:29 | NUR ---
ENDORSED PT TO PUZZLE ASSEMBLER NURSE FRANCY AT BEDSIDE FOR CONTINUITY OF CARE. PT IN STABLE CONDITION.
--- NOTE | 2017-05-30 19:30 | NUR ---
RECEIVED BEDSIDE REPORT FROM DAY SHIFT NURSE MANJEET RN, PT STABLE, NO DISTRESS NOTED, PT HAS NO IV ACCESS, PT ON ROOM AIR NO SOB, CURRENTLY PT AMBULATING INSIDE HIS ROOM, INITIAL ASSESSMENT DONE, ALL SAFETY PRECAUTION MET, WILL CONTINUE TO MONITOR.
[2017-05-30] MEDS: QUEtiapine FUMARATE 25 MG TAB PO SCH (20:35)
--- NOTE | 2017-05-30 20:35 | NUR ---
DUE MEDICATION GIVEN, PT TOLERATED WELL, NO DISTRESS NOTED, CALL LIGHT WITHIN REACH, WILL CONTINUE TO MONITOR.
[2017-05-31] VITALS: BP 137/65
--- NOTE | 2017-05-31 00:01 | NUR ---
CHECKED ON PT, ORIENT PT TO BED, NO DISTRESS NOTED, CALL LIGHT WITHIN REACH, WILL CONTINUE TO MONITOR.
[2017-05-31] MEDS: HYDRAGUARD CREAM TP SCH ×2 (01:08→12:31)
--- NOTE | 2017-05-31 03:04 | NUR ---
PT GOT OUT OF BED AND URINATED ALL OVER THE FLOOR, THEN WENT BACK TO BED AND SIT ON BED, PT STABLE, NO DISTRESS NOTED, CALL LIGHT WITHIN REACH. EVS CALLED TO CLEAN THE ROOM, URINE CLEANED WITH TOWEL. WILL CONTINUE TO MONITOR PT.
--- NOTE | 2017-05-31 05:10 | NUR ---
PT WALKED AROUND ROOM THEN URINATED ON THE FLOOR, CLEANED PT URINE AND CALLED EVS TO CLEAN THE FLOOR. PT STABLE, NO DISTRESS NOTED, CALL LIGHT WITHIN REACH, WILL CONTINUE TO MONITOR.
--- NOTE | 2017-05-31 07:12 | NUR ---
ENDORSED PLAN OF CARE TO DAY SHIFT NURSE NOEMY RN, FOR CONTINUOUS OF CARE, PT STABLE, NO DISTRESS NOTED, CALL LIGHT WITHIN REACH.
--- NOTE | 2017-05-31 07:14 | NUR ---
RECEIVED BEDSIDE REPORT FROM MILIEU COUNSELOR NURSE. PATIENT IS AWAKE, ALERT AND ORIENTEDX1. HX OF ALZHEIMERS DEMENTIA. NO SIGNS OF DISTRESS ON ROOM AIR. HE IS ABLE TO AMBULATE, GAIT IS STEADY. BLE REDNESS AND EDEMA(NON PITTING). THICKENED TOENAILS, AWAITING DIDARI CONSULT. PATIENT IS INCONTINENT. AWAITING PLACEMENT IN [facility]. BED IN LOW POSITION. CALL LIGHT WITHIN REACH. WILL CONTINUE TO MONITOR THE PATIENT.
[2017-05-31 08:00] VITALS: BP 147/67
[2017-05-31] MEDS: amLODIPine 5 MG TAB PO SCH (09:14)
--- NOTE | 2017-05-31 09:18 | NUR ---
ADMINISTERED MORNING MED ORDERED. PATIENT TOLERATED MED WELL. MIXED MED W APPLESAUCE. HE CONSUMED ALL THE APPLESAUCE. WILL CONTINUE TO MONITOR THE PATIENT.
--- NOTE | 2017-05-31 10:46 | NUR ---
PATIENT SITTING ON CHAIR. NO SIGNS OF DISTRESS. WILL CONTINUE TO MONITOR THE PATIENT
--- NOTE | 2017-05-31 12:32 | NUR ---
PATIENT IS STANDING EATING HIS LUNCH. NO SIGNS OF DISTRESS ON ROOM AIR. WILL CONTINUE TO MONITOR THE PATIENT.
--- NOTE | 2017-05-31 13:52 | NUR ---
05/31/17 RD FOLLOW UP COMPLETED PLEASE REFER TO NUTRITION PROGRESS NOTE UNDER CARE ACTIVITY FOR ESTIMATED NUTRITION NEEDS. RD RECOMMENDATIONS: 1. CONTINUE REGULAR DIET TOLERATED - SUFFICIENT TO MEET PT NEEDS 2. RD WILL F/U 5-7 DAYS; LOW RISK. DOMINIQUE ESPITIA MBA, RD
--- NOTE | 2017-05-31 14:30 | NUR ---
PATIENT IS WALKING AROUND IN THE ROOM. NO SIGNS OF DISTRESS ON ROOM AIR. WILL CONTINUE TO MONITOR THE PATIENT.
[2017-05-31 16:00] VITALS: BP 142/62
--- NOTE | 2017-05-31 16:00 | NUR ---
PATIENT IS WALKING AROUND THE HALLS WITH STUDENT NURSES, PATIENT IS HAPPY TO BE WALKED AROUND. STEADY GAIT. WILL CONTINUE TO MONITOR THE PATIENT.
--- NOTE | 2017-05-31 16:10 | NUR ---
PATIENT IS BACK IN HIS ROOM FROM A WALK AROUND THE HALLS. NO SIGNS OF DISTRESS. WILL CONTINUE TO MONITOR THE PATIENT.
--- NOTE | 2017-05-31 17:50 | NUR ---
PATIENT IS RESTING. NO SIGNS OF DISTRESS ON ROOM AIR. WILL CONTINUE TO MONITOR THE PATIENT.
--- NOTE | 2017-05-31 19:22 | NUR ---
GAVE BEDSIDE REPORT TO EVENT SALES REPRESENTATIVE NURSE. PATIENT IS ENDORSED IN STABLE CONDITION.
--- NOTE | 2017-05-31 19:23 | NUR ---
RECEIVED BEDSIDE REPORT FROM DAY SHIFT NURSE NOEMY RN, PT STABLE, NO DISTRESS NOTED, PT HAS NO IV ACCESS, PT ON ROOM AIR NO SOB, PT WALKING AROUND ROOM, TOLERATED WELL, INITIAL ASSESSMENT DONE, ALL SAFETY PRECAUTION MET, CALL LIGHT WITHIN REACH, WILL CONTINUE TO MONITOR.
--- NOTE | 2017-05-31 20:42 | NUR ---
DUE MEDICATION GIVEN, PT TOLERATED WELL, NO DISTRESS NOTED, CALL LIGHT WITHIN REACH, WILL CONTINUE TO MONITOR.
[2017-05-31] MEDS: QUEtiapine FUMARATE 25 MG TAB PO SCH (21:42)
--- NOTE | 2017-05-31 22:10 | NUR ---
CHECKED ON PT, PT AMBULATING IN ROOM, NO DISTRESS NOTED, CALL LIGHT WITHIN REACH, WILL CONTINUE TO MONITOR.
--- NOTE | 2017-06-01 00:01 | NUR ---
CHECKED ON PT, PT SLEEPING ON CHAIR, ORIENT PT TO BED, PT AMBULATED TO BED, AND SLEEPING ON BED, NO DISTRESS NOTED, CALL LIGHT WITHIN REACH, WILL CONTINUE TO MONITOR.
[2017-06-01 00:10] VITALS: BP 128/64
[2017-06-01] MEDS: HYDRAGUARD CREAM TP SCH ×2 (01:23→13:09)
--- NOTE | 2017-06-01 02:40 | NUR ---
CHECKED ON PT, PT SLEEPING, NO DISTRESS NOTED, CALL LIGHT WITHIN REACH, WILL CONTINUE TO MONITOR.
--- NOTE | 2017-06-01 04:30 | NUR ---
PT AMBULATED AROUND ROOM, PT URINATED, CHANGED AND CLEANED PT, PT STABLE, NO DISTRESS NOTED, CALL LIGHT WITHIN REACH, WILL CONTINUE OT MONITOR.
--- NOTE | 2017-06-01 07:22 | NUR ---
ENDORSED PLAN OF CARE TO DAY SHIFT NURSE ARIELA HERNANDEZ, PT STABLE, NO DISTRESS NOTED, CALL LIGHT WITHIN REACH.
--- NOTE | 2017-06-01 07:23 | NUR ---
RECEIVED REPORT FROM CYBERATHLETE NURSE. PATIENT SITTING IN BED COMFORTABLY. NO DISTRESS NOTED. DENIES ANY PAIN. AAOX2, CALM, COOPERATIVE, SKIN COLOR APPROPRIATE TO ETHNICITY, WARM TO TOUCH. SKIN INTACT. ABDOMEN SOFT, NON-DISTENDED. LUNGS CTA ON ALL LOBES. +1 PITTING EDEMA ON B/L LE. NO IV SITE NOTED. REVIEWED PLAN OF CARE WITH PATIENT. PATIENT VERBALIZED UNDERSTANDING. SAFETY MEASURES IN PLACE, CALL LIGHT WITHIN REACH. WILL CONTINUE TO MONITOR.
[2017-06-01 08:00] VITALS: BP 143/76
[2017-06-01] MEDS: amLODIPine 5 MG TAB PO SCH (08:50)
--- NOTE | 2017-06-01 08:51 | NUR ---
PATIENT SITTING IN BED WATCHING TV. NO DISTRESS NOTED. DENIES ANY PAIN. FLACC 0. SCHEDULED MEDICATION DUE GIVEN. SAFETY MEASURES IN PLACE, CALL LIGHT WITHIN REACH. WILL CONTINUE TO MONITOR.
--- NOTE | 2017-06-01 11:13 | NUR ---
PATIENT STANDING AND WALKING AROUND IN HIS ROOM. NO DISTRESS NOTED. CONDITION UNCHANGED. SAFETY MEASURES IN PLACE, CALL LIGHT WITHIN REACH. WILL CONTINUE TO MONITOR.
--- NOTE | 2017-06-01 12:48 | NUR ---
PATIENT SITTING IN BEDSIDE CHAIR WITH LUNCH TRAY IN FRONT. NO DISTRESS NOTED. CONDITION UNCHANGED. WILL CONTINUE TO MONITOR.
--- NOTE | 2017-06-01 14:20 | NUR ---
CM NOTE [facility] ID FAXED TO [facility] / FAX# [phone]
--- NOTE | 2017-06-01 14:31 | NUR ---
PATIENT SITTING IN BED. NO DISTRESS NOTED. FLACC 0. CONDITION UNCHANGED. SAFETY MEASURES IN PLACE, CALL LIGHT WITHIN REACH. WILL CONTINUE TO MONITOR.
[2017-06-01 16:00] VITALS: BP 131/71
--- NOTE | 2017-06-01 16:32 | NUR ---
PATIENT STANDING AND WANDERING AROUND IN ROOM. NO DISTRESS NOTED. FLACC 0. CONDITION UNCHANGED. WILL CONTINUE TO MONITOR.
--- NOTE | 2017-06-01 18:00 | NUR ---
PATIENT WALKING AROUND IN ROOM. NO DISTRESS NOTED. FLACC 0. CONDITION UNCHANGED. WILL CONTINUE TO MONITOR.
--- NOTE | 2017-06-01 19:15 | NUR ---
RECEIVED PT REPORT AT BEDSIDE FROM ARIELA AT BEDSIDE FOR CONTINUITY OF CARE. PT AWAKE AND ALERT TO NAME ONLY. NO S/S OF DISTRESS. NO SOB. NO COMPLAINTS OF PAIN AT THIS TIME. NO IV NOTED. BED LOWERED WITH CALL LIGHT WITHIN REACH. WILL CONTINUE TO MONITOR.
--- NOTE | 2017-06-01 19:19 | NUR ---
GAVE REPORT TO FINAL FINISHER NURSE FOR CONTINUITY OF CARE. PATIENT IN STABLE CONDITION.
[2017-06-01] MEDS: QUEtiapine FUMARATE 25 MG TAB PO SCH (20:18)
[2017-06-01 20:30] VITALS: BP 149/90
--- NOTE | 2017-06-01 20:32 | NUR ---
ASSESSED PT. PT TOE NAILS AND NAILS ARE TRIMMED. PT IS AWAKE. PT TOOK MEDS WELL. WILL CONTINUE TO MONITOR.
--- NOTE | 2017-06-01 23:23 | NUR ---
ASSESSED PT. PT SLEEPING. NO SOB. NO S/S OF DISTRESS. ON ROOM AIR. WILL CONTINUE TO MONITOR.
[2017-06-02] MEDS: HYDRAGUARD CREAM TP SCH ×3 (01:00→21:50)
--- NOTE | 2017-06-02 01:14 | NUR ---
ASSESSED PT. PT SLEEPING WILL CONTINUE TO MONITOR. ON ROOM AIR.
--- NOTE | 2017-06-02 04:44 | NUR ---
PT SLEEPING . NO PAIN NOTED AT THIS TIME WILL CONTINUE TO MONITOR. NO SOB. NO S/S OF DISTRESS. WILL CONTINUE TO MONITOR.
--- NOTE | 2017-06-02 07:27 | NUR ---
GAVE REPORT TO ARIELA DAY SHIFT NURSE FOR CONTINUITY OF CARE.
--- NOTE | 2017-06-02 07:28 | NUR ---
RECEIVED REPORT FROM SPLUNK DEVELOPER NURSE. PATIENT SITTING IN BED COMFORTABLY. NO DISTRESS NOTED. DENIES ANY PAIN. AAOX1, CALM, COOPERATIVE, SKIN COLOR APPROPRIATE TO ETHNICITY, WARM TO TOUCH. SKIN INTACT. ABDOMEN SOFT, NON-DISTENDED. LUNGS CTA ON ALL LOBES. +1 PITTING EDEMA ON B/L LE. NO IV SITE NOTED. REVIEWED PLAN OF CARE WITH PATIENT. PATIENT VERBALIZED UNDERSTANDING. SAFETY MEASURES IN PLACE, CALL LIGHT WITHIN REACH. WILL CONTINUE TO MONITOR.
[2017-06-02 08:00] VITALS: BP 138/68
[2017-06-02] MEDS: amLODIPine 5 MG TAB PO SCH (09:22)
--- NOTE | 2017-06-02 09:24 | NUR ---
PATIENT SITTING IN CHAIR AT BEDSIDE. NO DISTRESS NOTED. FLACC 0. SCHEDULED MEDICATION DUE GIVEN. SAFETY MEASURES IN PLACE, CALL LIGHT WITHIN REACH. WILL CONTINUE TO MONITOR.
--- NOTE | 2017-06-02 11:45 | NUR ---
PATIENT STANDING IN ROOM AND WALKING AROUND IN ROOM. NO DISTRESS NOTED. FLACC 0. CONDITION UNCHANGED. WILL CONTINUE TO MONITOR.
--- NOTE | 2017-06-02 12:09 | NUR ---
CALLED [facility] AND SPOKE WITH BETH, . I ASKED IF SHE RECEIVED THE MEDICAL FOR THIS PATIENT. SHE SAID SHE DID, BUT IT WAS DARK. I GAVE HER THE NUMBER OVER THE PHONE. I ASKED IF SHE NEEDED A NEW FACE SHEET, AND SHE SAID NO. SHE SAID THEY WILL BE LOOKING FOR A SNF FOR THIS PATIENT.
--- NOTE | 2017-06-02 14:30 | NUR ---
PATIENT SITTING DOWN IN BEDSIDE CHAIR WATCHING TV. NO DISTRESS NOTED. FLACC 0. CONDITION UNCHANGED. WILL CONTINUE TO MONITOR.
[2017-06-02 16:00] VITALS: BP 140/75
--- NOTE | 2017-06-02 16:00 | NUR ---
ASSISTED SEO EXPERT IN CLEANING PATIENT. NO DISTRESS NOTED. FLACC 0. CONDITION UNCHANGED. SAFETY MEASURES IN PLACE, CALL LIGHT WITHIN REACH. WILL CONTINUE TO MONITOR.
--- NOTE | 2017-06-02 18:00 | NUR ---
PATIENT SITTING IN BEDSIDE CHAIR WITH DINNER TRAY IN FRONT. NO DISTRESS NOTED. CONDITION UNCHANGED. SAFETY MEASURES IN PLACE, WILL CONTINUE TO MONITOR.
--- NOTE | 2017-06-02 19:30 | NUR ---
RECEIVED PATIENT REPORT AT BEDSIDE. PATIENT SITTING IN THE CHAIR IN THE ROOM. PATIENT AWAKE AND CALM. NO S/S OF DISTRESS. +2 PITTING EDEMA NOTED TO BLE. FALL PRECAUTIONS IN PLACE. WILL CONTINUE TO MONITOR
--- NOTE | 2017-06-02 19:30 | NUR ---
GAVE REPORT TO MANAGER TALENT ACQUISITION NURSE FOR CONTINUITY OF CARE. PATIENT IN STABLE CONDITION.
[2017-06-02 20:00] VITALS: BP 145/75
[2017-06-02] MEDS: QUEtiapine FUMARATE 25 MG TAB PO SCH (21:11)
--- NOTE | 2017-06-02 21:45 | NUR ---
PATIENT GIVEN BED BATH. PATIENT HAD A BM. STOOL LARGE AND SOLID
[2017-06-03] VITALS: BP 143/63
--- NOTE | 2017-06-03 00:30 | NUR ---
PATIENT ASLEEP IN BED. NO S/S OF DISTRESS NOTED
[2017-06-03 06:57] LABS: BASOPHILS # (AUTO) 0.1 K/uL (0.00-0.22); BASOPHILS % (AUTO) 1.3 % (0.0-2.0); EOSINOPHILS # (AUTO) 0.3 K/uL (0-0.4); EOSINOPHILS % (AUTO) 7.3 % (0.0-4.0); HEMATOCRIT 37.6 % (36-52); HEMOGLOBIN 12.6 g/dL (12.0-18.0); LYMPHOCYTES # (AUTO) 1.1 K/uL (2.0-11.5); MEAN CORPUSCULAR HEMOGLOBIN 29 pg (27-31); MEAN CORPUSCULAR HGB CONC 34 g/dL (33-37); MEAN CORPUSCULAR VOLUME 87.4 fL (80-94); MONOCYTES # (AUTO) 0.5 K/uL (0.8-1.0); MONOCYTES % (AUTO) 11.5 % (1.7-9.3); NEUTROPHILS # (AUTO) 2.7 K/uL (1.8-7.7); NEUTROPHILS % (AUTO) 55.9 % (42.2-75.2); PLATELET COUNT (AUTO) 414 K/uL (140-450); WHITE BLOOD COUNT (AUTO) 4.8 K/uL (4.8-10.8)
[2017-06-03 07:13] LABS: ANION GAP 9.5 (8-16); CREATININE 0.9 mg/dL (0.7-1.3); POTASSIUM 3.5 mmol/L (3.5-5.1)
--- NOTE | 2017-06-03 07:18 | NUR ---
PATIENT REPORT GIVEN AT BEDSIDE. PATIENT ENDORSED IN STABLE CONDITION
--- NOTE | 2017-06-03 07:20 | NUR ---
Patient's Plan of Care was discussed and reviewed with HERBIE: OCHOA
--- NOTE | 2017-06-03 08:00 | NUR ---
PATIENT SITTING QUIETLY IN CHAIR. VITAL SIGNS TAKEN AND WNL
[2017-06-03 08:01] VITALS: BP 129/75
[2017-06-03] MEDS: amLODIPine 5 MG TAB PO SCH (08:30)
--- NOTE | 2017-06-03 10:00 | NUR ---
PATIENT WALKING AROUND IN ROOM. CALM AND QUIET.
--- NOTE | 2017-06-03 13:00 | NUR ---
PATIENT CONTINUES TO REST QUIETLY IN ROOM. NO S/S OF RESPIRATORY DISTRESS.
[2017-06-03] MEDS: HYDRAGUARD CREAM TP SCH (13:06)
--- NOTE | 2017-06-03 15:10 | NUR ---
[facility]IBLE [facility]
[2017-06-03 16:00] VITALS: BP 147/60
--- NOTE | 2017-06-03 16:06 | NUR ---
CHART REVIEWED. CALLED LELA FROM [facility]. THEY ARE STILL LOOKING FOR PLACEMENT.
--- NOTE | 2017-06-03 19:30 | NUR ---
RECEIVED BEDSIDE REPORT FROM DAY SHIFT NURSE, PT STABLE, NO DISTRESS NOTED, PT HAS NO IV ACCESS, PT ON ROOM AIR NO SOB, INITIAL ASSESSMENT DONE, ALL SAFETY PRECAUTION MET, PT STILL CONFUSED AND WANDERING AROUND ROOM, WILL CONTINUE TO MONITOR.
[2017-06-03] MEDS: QUEtiapine FUMARATE 25 MG TAB PO SCH (22:02)
--- NOTE | 2017-06-03 22:10 | NUR ---
CHECKED ON PT, PT SITTING ON BEDSIDE CHAIR, NO DISTRESS NOTED, CALL LIGHT WITHIN REACH, WILL CONTINUE TO MONITOR.
[2017-06-04] VITALS: BP 130/74
--- NOTE | 2017-06-04 00:01 | NUR ---
REORIENT PT TO BED, PT SLEPT NO DISTRESS NOTED, CALL LIGHT WITHIN REACH, WILL CONTINUE TO MONITOR.
[2017-06-04] MEDS: HYDRAGUARD CREAM TP SCH ×2 (01:00→13:00)
--- NOTE | 2017-06-04 02:11 | NUR ---
CHECKED ON PT, PT SLEEPING, NO DISTRESS NOTED, CALL LIGHT WITHIN REACH, WILL CONTINUE TO MONITOR.
--- NOTE | 2017-06-04 04:16 | NUR ---
ASSIST PT TO RESTROOM, PT URINATED IN THE TOILET, THEN WENT BACK TO BED, NO DISTRESS NOTED, WILL CONTINUE TO MONITOR.
--- NOTE | 2017-06-04 07:29 | NUR ---
ENDROSED PLAN OF CARE TO DAY SHIFT NURSE YOBANI RN, PT STABLE, NO DISTRESS NOTED, CALL LIGHT WITHIN REACH.
--- NOTE | 2017-06-04 07:30 | NUR ---
REPORT RECEIVED FROM DENTAL APPLIANCE MECHANIC NURSE, PT STANDING UP WALKING AROUND IN ROOM QUIETLY IN NAD, RESP EVEN UNLABORED, SKIN WARM DRY COLOR WNL, DENIES PAIN OR DISCOMFORT, PLAN OF CARE REVIEWED, NO IMMEDIATE NEEDS IDENTIFIED AT THIS TIME, CALL MARTINEZ WITHIN REACH SIDE RAILS UP, BED LOCKED IN LOW POSITION, WILL CONTINUE TO MONITOR.
[2017-06-04 08:00] VITALS: BP 142/68
[2017-06-04] MEDS: amLODIPine 5 MG TAB PO SCH (08:50)
--- NOTE | 2017-06-04 08:50 | NUR ---
PT AM MEDS GIVEN. PT UP IN WHEELCHAIR HAVING BREAKFAST. TOLERATED MEDICATION WELL. WILL CONTINUE TO MONITOR.
--- NOTE | 2017-06-04 14:09 | NUR ---
PT SITTING UP IN CHAIR. IS NOT IN ANY DISTRESS. WILL CONTINUE TO MONITOR.
[2017-06-04 16:00] VITALS: BP 141/80
--- NOTE | 2017-06-04 16:10 | NUR ---
PT SITTING UP IN CHAIR, RESTING QUIETLY, MAKES EYE CONTACT, CALM COOPERATIVE, VITALS STABLE, NO ACUTE DISTRESS, ALL SAFETY MEASURES IN PLACE,
--- NOTE | 2017-06-04 19:33 | NUR ---
ENDORSED PT TO NIGHT NURSE. PT IN STABLE CONDITION.
--- NOTE | 2017-06-04 19:40 | NUR ---
RECEIVED REPORT FROM DAY SHIFT, PATIENT STANDING IN THE ROOM, ABLE TO MAKE EYE CONTACT, BUT DOES NOT TALK, NO S/S OF DISTRESS NOTED, RESPIRATION EVEN AND UNLABORED, ON ROOM AIR. NO IV ACCESS NOTED, SAFETY MEASURE IN PLACE, WILL CONTINUE TO MONITOR.
[2017-06-04] MEDS: QUEtiapine FUMARATE 25 MG TAB PO SCH (21:00)
--- NOTE | 2017-06-04 21:05 | NUR ---
DUE MEDICATION GIVEN, PATIENT TOLERATED WELL. NO S/S OF DISTRESS NOTED, RESPIRATION EVEN AND UNLABORED, PATIENT IS SITTING UP IN THE CHAIR, SAFETY MEASURE ENSURED, WILL CONTINUE TO MONITOR.
[2017-06-05] VITALS: BP 132/73
--- NOTE | 2017-06-05 00:15 | NUR ---
VITAL SIGNS STABLE, NO S/S OF DISTRESS NOTED, RESPIRATION EVEN AND UNLABORED, SAFETY MEASURE ENSURED, WILL CONTINUE TO MONITOR.
[2017-06-05] MEDS: HYDRAGUARD CREAM TP SCH ×2 (00:22→13:00)
--- NOTE | 2017-06-05 02:54 | NUR ---
PATIENT IS SLEEPING, NO S/S OF DISTRESS NOTED, RESPIRATION EVEN AND UNLABORED, CALL LIGHT WITHIN REACH, SAFETY MEASURE ENSURED, WILL CONTINUE TO MONITOR.
--- NOTE | 2017-06-05 04:24 | NUR ---
NO CHANGE IN CONDITION, RESPIRATION EVEN AND UNLABORED, CALL LIGHT WITHIN REACH, SAFETY MEASURE ENSURED, WILL CONTINUE TO MONITOR.
--- NOTE | 2017-06-05 07:24 | NUR ---
ENDORSED PLAN OF CARE TO DAY SHIFT RN, PATIENT IS IN STABLE CONDITION.
--- NOTE | 2017-06-05 07:25 | NUR ---
RECEIVED REPORT FROM STORAGE FACILITY HOUSEKEEPER RN. PATIENT IS SITTING IN CHAIR AT THIS TIME. HAS NO SIGNS AND SYMPTOMS OF ACUTE DISTRESS NOTED AT THIS TIME. HAS NO IV SITE. FOLLOWS SOME COMMANDS. REINFORCEMENT CONSTANTLY NEEDED. BED IN LOWEST POSITION, SIDE RAILS UP X2, CALL LIGHT WITHIN REACH. FALL PRECAUTIONS IN PLACE. WILL CONTINUE TO MONITOR.
[2017-06-05 08:00] VITALS: BP 140/81
[2017-06-05] MEDS: amLODIPine 5 MG TAB PO SCH (10:17)
--- NOTE | 2017-06-05 15:12 | NUR ---
BETH FROM [facility] CALLED. NO SNF FACILITY YET.
[2017-06-05 16:00] VITALS: BP 134/58
--- NOTE | 2017-06-05 19:29 | NUR ---
ENDORSED PATIENT TO CROWNING INSPECTOR RN FOR CONTINUITY OF CARE. PATIENT IN STABLE CONDITION.
[2017-06-05] MEDS: QUEtiapine FUMARATE 25 MG TAB PO SCH (21:36)
--- NOTE | 2017-06-05 21:36 | NUR ---
DUE MEDICATION GIVEN, PATIENT TOLERATED WELL. NO S/S OF DISTRESS NOTED, RESPIRATION EVEN AND UNLABORED, SAFETY MEASURE ENSURED ,WILL CONTINUE TO MONITOR.
--- NOTE | 2017-06-05 22:15 | NUR ---
PATIENT URINATED ON THE FLOOR. CLEANED THE PATIENT AND THE ROOM. NO S/S OF DISTRESS NOTED, WILL CONTINUE TO MONITOR.
--- NOTE | 2017-06-05 23:14 | NUR ---
PATIENT SITTING UP IN THE CHAIR, REFUSED TO GO BACK TO HIS BED. NO S/S OF DISTRESS NOTED, WILL CONTINUE TO MONITOR.
[2017-06-06] VITALS: BP 126/61
[2017-06-06] MEDS: HYDRAGUARD CREAM TP SCH ×2 (01:40→12:07)
--- NOTE | 2017-06-06 03:25 | NUR ---
NO CHANGE IN CONDITION, RESPIRATION EVEN AND UNLABORED, SAFETY MEASURE ENSURED, WILL CONTINUE TO MONITOR.
--- NOTE | 2017-06-06 07:15 | NUR ---
ENDORSED PLAN OF CARE TO DAY SHIFT RN, PATIENT IS SLEEPING, NO S/S OF DISTRESS NOTED, PATIENT IS IN STABLE CONDITION.
--- NOTE | 2017-06-06 07:30 | NUR ---
RECEIVED REPORT FROM CONTROL PANEL OPERATOR CRUDE UNIT NURSE, PT SITTING AT THE EDGE OF THE BED, AWAKE, OX1 TO NAME, NO S/S OF DISTRESS NOTED, RESPIRATION EVEN AND UNLABORED, ON ROOM AIR. FLACC 0, BLE ERYTHEMA AND PITTING EDEMA NOTED. NO IV ACCESS. SAFETY MEASURES AND FALL PRECAUTIONS IN PLACE, WILL CONTINUE TO MONITOR.
[2017-06-06 08:00] VITALS: BP 135/88
[2017-06-06] MEDS: amLODIPine 5 MG TAB PO SCH (08:16)
--- NOTE | 2017-06-06 10:32 | NUR ---
06/06/17 RD FOLLOW UP COMPLETED PLEASE REFER TO NUTRITION PROGRESS NOTE UNDER CARE ACTIVITY FOR ESTIMATED NUTRITION NEEDS. RD RECOMMENDATIONS: 1. CONTINUE ON REGULAR DIET TOLERATED. 2. RD WILL F/U 5-7 DAYS; LOW RISK. NARCISA MANUEL MS, RDN
--- NOTE | 2017-06-06 11:23 | NUR ---
CLEANED PERINEAL AREA AND APPLIED HYDRAGUARD. AMB WITH PT IN THE HALLWAY. NO S/S OF ACUTE DISTRESS
--- NOTE | 2017-06-06 15:00 | NUR ---
PT RECEIVED SPONGE BATH, HYDRAGUARD APPLIED. BED LINENS AND GOWN CHANGED
[2017-06-06 16:00] VITALS: BP 132/63
--- NOTE | 2017-06-06 19:30 | NUR ---
ENDORSED PT TO KNITTING MACHINE OPERATOR AUTOMATIC NURSE, PT IN STABLE CONDITION.
[2017-06-06] MEDS: QUEtiapine FUMARATE 25 MG TAB PO SCH (21:37)
[2017-06-07] VITALS: BP 130/70
[2017-06-07] MEDS: HYDRAGUARD CREAM TP SCH ×2 (01:00→13:11)
--- NOTE | 2017-06-07 07:30 | NUR ---
RECEIVED REPORT FROM TRAINING ENGINEER NURSE, PT SLEEPING IN THE BED, AROUSED TO LIGHT SHAKING, NO S/S OF DISTRESS NOTED, RESPIRATION EVEN AND UNLABORED, ON ROOM AIR. FLACC 0, BLE ERYTHEMA AND PITTING EDEMA NOTED. NO IV ACCESS. SAFETY MEASURES AND FALL PRECAUTIONS IN PLACE, WILL CONTINUE TO MONITOR.
[2017-06-07 08:00] VITALS: BP 117/72
[2017-06-07] MEDS: amLODIPine 5 MG TAB PO SCH (09:41)
--- NOTE | 2017-06-07 09:55 | NUR ---
CLEANED PERINEAL AREA AND APPLIED HYDRAGUARD. CHANGED PT'S GOWN.
--- NOTE | 2017-06-07 14:15 | NUR ---
PT HAD BMX1, FORMED BROWN STOOL, CLEANED PERINEAL AREA AND APPLIED HYDRAGUARD. CHANGED PT'S GOWN.
[2017-06-07 16:13] VITALS: BP 125/76
--- NOTE | 2017-06-07 16:30 | NUR ---
PT SITTING ON THE CHAIR, NO S/S OF ACUTE DISTRESS NOTED.
--- NOTE | 2017-06-07 19:20 | NUR ---
ENDORSED PT TO CENTRIFUGAL WAX MOLDER RN AT BEDSIDE. PT IS IN STABLE CONDITION.
--- NOTE | 2017-06-07 19:21 | NUR ---
RECEIVED PT REPORT FROM SERGIO AT BEDSIDE FOR CONTINUITY OF CARE. PT AWAKE AO X1. NO S/S OF DISTRESS. PT ON SOB, PT RA. NO C/O PAIN AT THIS TIME. NO IV LINE NOTED. BED LOWERED CALL LIGHT WITHIN REACH. WILL CONTINUE TO MONITOR.
[2017-06-07] MEDS: QUEtiapine FUMARATE 25 MG TAB PO SCH (20:18)
--- NOTE | 2017-06-07 21:58 | NUR ---
CHECKED ON PATIENT. PT IS RESTING ON BED AWAKE WILL CONTINUE TO MONITOR.
[2017-06-08] VITALS: BP 129/74
[2017-06-08] MEDS: HYDRAGUARD CREAM TP SCH ×3 (01:25→23:24)
--- NOTE | 2017-06-08 07:22 | NUR ---
RECEIVED REPORT FROM NIGHTSHIFT NURSE AT BEDSIDE. UPDATED ON PATIENT'S CONDITION. PATIENT IS SITTING IN HIS CHAIR AT THIS TIME. NO SIGNS OF PAIN. NO RESPIRATORY DISTRESS NOTED. PATIENT HAS NO IV ACCESS. WILL CONTINUE TO MONITOR PATIENT.
--- NOTE | 2017-06-08 07:22 | NUR ---
GAVE REPORT TO DAYSHIFT NURSE FOR CONTINUITY OF CARE. WILL CONTINUE WITH PLAN OF CARE.
[2017-06-08 08:00] VITALS: BP 109/64
[2017-06-08] MEDS: amLODIPine 5 MG TAB PO SCH (08:02)
--- NOTE | 2017-06-08 08:02 | NUR ---
PATIENT RECEIVED AM MEDICATIONS WITH BREAKFAST. PATIENT ABLE TO EAT BREAKFAST WELL. WILL CONTINUE TO MONITOR PATIENT.
--- NOTE | 2017-06-08 11:26 | NUR ---
DR. MONTGOMERY GAVE TELEPHONE ORDERS TO RENEW PATIENT'S 5 MG NORVASC AND HYDRAGUARD. WILL CARRY OUT ORDERS.
--- NOTE | 2017-06-08 12:26 | NUR ---
PATIENT ASLEEP AT THIS TIME IN BED. NO SIGNS OF PAIN OR ANY SIGNS OF RESPIRATORY DISTRESS. WILL CONTINUE TO MONITOR PATIENT.
--- NOTE | 2017-06-08 13:50 | NUR ---
PATIENT ASLEEP AT THIS TIME. NO DISTRESS NOTED. WILL CONTINUE TO MONITOR PATIENT.
--- NOTE | 2017-06-08 15:17 | NUR ---
PATIENT EATING APPLE SAUCE AT THIS TIME. PATIENT SITTING IN CHAIR. NO DISTRESS. NO COMPLAINTS AT THIS TIME. WILL CONTINUE TO MONITOR PATIENT.
[2017-06-08 16:00] VITALS: BP 154/66
--- NOTE | 2017-06-08 19:25 | NUR ---
GAVE REPORT TO NIGHTSHIFT NURSE AT BEDSIDE. PATIENT IN STABLE CONDITION.
--- NOTE | 2017-06-08 19:37 | NUR ---
RECEIVED REPORT FROM DAYSKSFT NURSE AT BEDSIDE FOR CONTINUITY OF CARE. PT AAOX1. PT ON RA. NO IV. BED LOWERED. CALL LIGHT WITHIN REACH WILL CONTINUE TO MONITOR.
[2017-06-08] MEDS: QUEtiapine FUMARATE 25 MG TAB PO SCH (20:38)
--- NOTE | 2017-06-08 22:45 | NUR ---
PT IS SLEEPING. NO SOB. NO S/S OF DISTRESS. WILL CONTINUE TO MONITOR.
[2017-06-08 23:20] VITALS: BP 145/81
--- NOTE | 2017-06-09 | NUR ---
PT URINATED ON THE FLOOR. WILL CHANGE PT AND CONTINUE TO MONITOR. PT IS NOW RESTING IN BED.
--- NOTE | 2017-06-09 01:30 | NUR ---
PT IS SLEEPING. NO SOB. NO S/S OF DISTRESS. WILL CONTINUE TO MONITOR.
--- NOTE | 2017-06-09 04:47 | NUR ---
PT IS SLEEPING. NO SOB. NO S/S OF DISTRESS. WILL CONTINUE TO MONITOR.
--- NOTE | 2017-06-09 07:14 | NUR ---
GAVE REPORT TO DAYSHIFT NURSE AT BEDSIDE FOR CONTINUITY OF CARE.
--- NOTE | 2017-06-09 07:14 | NUR ---
RECEIVED REPORT FROM NIGHTSHIFT NURSE AT BEDSIDE. UPDATED ON PATIENT'S CONDITION. FLACC - 0 AT THIS TIME. NO RESPIRATORY DISTRESS NOTED OR RESPIRATORY DEPRESSION NOTED. PATIENT IS SITTING IN A CHAIR AT BEDSIDE. PATIENT'S ROOM IS NEAR THE NURSING STATION. WILL CONTINUE TO MONITOR PATIENT.
[2017-06-09 08:00] VITALS: BP 145/76
--- NOTE | 2017-06-09 09:00 | NUR ---
PATIENT ASLEEP AT THIS TIME. NO SIGNS OF PAIN NOTED. WILL CONTINUE TO MONITOR PATIENT.
[2017-06-09] MEDS: amLODIPine 5 MG TAB PO SCH (09:51)
--- NOTE | 2017-06-09 09:51 | NUR ---
PATIENT RECEIVED AM MEDICATION NORVASC. PATIENT TOLERATED WELL.
[2017-06-09] MEDS: HYDRAGUARD CREAM TP SCH (13:00)
--- NOTE | 2017-06-09 13:04 | NUR ---
PATIENT RESTING IN BED AT THIS TIME. NO SIGNS OF PAIN. NO RESPIRATORY DISTRESS NOTED. WILL CONTINUE TO MONITOR PATIENT.
--- NOTE | 2017-06-09 14:28 | NUR ---
PATIENT ASLEEP AT THIS TIME. NO SIGNS OF PAIN AT THIS TIME. WILL CONTINUE TO MONITOR PATIENT.
--- NOTE | 2017-06-09 14:34 | NUR ---
SPOKE WITH BETH FROM [facility]. STILL LOOKING FOR SNF.
--- NOTE | 2017-06-09 15:26 | NUR ---
PATIENT ASLEEP AT THIS TIME. NO SIGNS OF DISTRESS. WILL CONTINUE TO MONITOR PATIENT.
[2017-06-09 16:00] VITALS: BP 133/63
--- NOTE | 2017-06-09 18:33 | NUR ---
PATIENT EATING AT THIS TIME. STANDBY ASSISTANCE OFFERED. PATIENT TOLERATING WELL.
--- NOTE | 2017-06-09 19:15 | NUR ---
GAVE REPORT TO NIGHTSHIFT NURSE AT BEDSIDE. PATIENT IN STABLE CONDITION.
--- NOTE | 2017-06-09 19:30 | NUR ---
ASSUMED CARE OF PATIENT, AWAKE, CONFUSED. WALKING AROUND THE ROOM. STABLE CONDITION. CALL LIGHT WITHIN REACH.
[2017-06-09] MEDS: QUEtiapine FUMARATE 25 MG TAB PO SCH (20:51)
--- NOTE | 2017-06-09 21:00 | NUR ---
CARE BOARD UPDATED. DUE MEDS GIVEN. VOIDED ON THE FLOOR. CALL LIGHT WITHIN REACH.
--- NOTE | 2017-06-09 23:13 | NUR ---
ATTEMPTED TO PUT BACK IN BED. NO COMPLAINS. CALL LIGHT WITHIN REACH.
[2017-06-09 23:23] VITALS: BP 151/60
--- NOTE | 2017-06-09 23:25 | NUR ---
VITAL SIGNS STABLE. SLEEPING IN BED SITTING REFUSED TO LAY DOWN. CALL LIGHT WITHIN REACH.
[2017-06-10] MEDS: HYDRAGUARD CREAM TP SCH ×2 (00:21→13:48)
--- NOTE | 2017-06-10 04:06 | NUR ---
ASLEEP IN BED. NO DISTRESS. CALL LIGHT WITHIN REACH.
--- NOTE | 2017-06-10 07:24 | NUR ---
ENDORSED CARE AT BEDSIDE WITH JAYLIN HERNANDEZ, PATIENT IN STABLE CONDITION.
--- NOTE | 2017-06-10 07:30 | NUR ---
PATIENT AWAKE, ALERT, SITTING ON THE CHAIR. RESPIRATION EVEN, UNLABOR ON ROOM AIR. SKIN DRY AND WARM. NO IV ACCESS AT THIS TIME. BOWEL SOUND ACTIVE. FLACC 0. PLAN OF CARE WAS DISCUSSED WITH PATIENT. BED AT LOW POSITION, SIDE RAILS UP. CALL LIGHT WITHIN REACH
[2017-06-10 08:00] VITALS: BP 132/66
[2017-06-10] MEDS: amLODIPine 5 MG TAB PO SCH (08:48)
--- NOTE | 2017-06-10 11:54 | NUR ---
PATIENT AWAKE, ALERT. RESPIRATION EVEN, UNLABOR ON ROOM AIR. NO DISTRESS NOTED AT THIS TIME. MRSA WAS SWABBED.
--- NOTE | 2017-06-10 12:01 | NUR ---
1118 RECEIVED CALL FROM PLEON AT [facility]. PT HAS BEEN ACCEPTED FOR ADMISSION TO [address] [phone] AND PT WILL GO TO ROOM 302A. [facility] WILL HAVE A NURSE AT [facility] AT 1230 TO MAKE TRANSPORT ARRANGEMENTS. MÓNICA IS THE ADMISSION COORDINATOR AT [facility]. DR MONTGOMERY NOTIFIED OF PTS ACCEPTANCE TO [facility].
[2017-06-10] MEDS ORDERED: AMLO5TAB PO (12:30)
[2017-06-10] MEDS ORDERED: QUET25TA PO (12:30)
--- NOTE | 2017-06-10 12:30 | NUR ---
DR. MONTGOMERY WAS MADE AWARE OF PATIENT'S PLACEMENT ACCEPTANCE, DISCHARGE ORDER WAS RECEIVED. RN AT [facility] AND [facility] BE CONTA[facility]
--- NOTE | 2017-06-10 14:58 | NUR ---
PATIENT IS TRANSFERRED OUT BY EMT. REPORT WAS GIVEN. WOUND PICTURE WAS TAKEN. MRSA WAS SWABBED. PATIENT IS STABLE AT THIS TIME
== END 2017-06-10 15:00 | DRG 57 ==
LOC: MED 14:36 → MTU 19:23 → OBSVTOIN 03-27 13:24
PROVIDERS: ADMIT Hospitalist; ATTEND Hospitalist
DX: G30.9 Alzheimer's disease, unspecified (principal); F02.80 Dementia in other diseases classified elsewhere, unspecified severity, without behavioral disturbance, psychotic disturbance, mood disturbance, and anxiety; B35.1 Tinea unguium; B86 Scabies; I10 Essential (primary) hypertension; R62.7 Adult failure to thrive; R60.0 Localized edema; L60.2 Onychogryphosis; Z66 Do not resuscitate; L85.3 Xerosis cutis; I87.2 Venous insufficiency (chronic) (peripheral)
CPT/HCPCS: 96374; 99285; G0378; 36415; 36600; 71045; 80048; 80053; 81001; 82803; 83735; 83880; 85025; 87081; 87804; 97161-GP; C1758; J1630; J1650; J2060; J3475; J7030; Q0092